=== PATIENT | male | born 1945 | race Caucasian/White ===

== ENCOUNTER 2025-02-05 13:37 | Inpatient (IN) | payer OTHER, SELFPAY ==
[2025-02-05 08:47] VITALS: BP 99/56
[2025-02-05 08:51] VITALS: BP 99/56
[2025-02-05 09:00] VITALS: BP 98/55
--- NOTE | 2025-02-05 09:26 | EDRN ---
SNF reports that they changed the MARKHAM YD as the pt ' cut the balloon' so it needed to be replaced
--- NOTE | 2025-02-05 09:29 | ED.GENMED ---
History of Present Illness
General
Chief Complaint: Fever
Time Seen by Provider: 02/05/25 08:43
History of Present Illness
History of Present Illness:
79-year-old male with history of chronic kidney disease, aortic valve insufficiency, hypertension, and paroxysmal SVT presents to the emergency department from [facility] for evaluation of fever. Patient was reportedly treated
for an ESBL E. coli UTI from 01 26 through 02 01 with IV ampicillin/sulbactam. He was admitted to [facility] at the end of November after a fall resulting in a subdural hematoma and apparently required a Martinez catheter replaced
during that admission due to urine retention. Nursing facility notes that the patient had cut the urine balloon yesterday and required a Martinez catheter exchange last evening. Patient offers no complaints on arrival but was sent in today due to a
fever. He had outpatient labs done yesterday showing an elevated white blood cell count. He is Malaysian-speaking and requires professional interpretation for evaluation
Review of Systems
Review of Systems
Allergies reviewed?: Yes
All Other Systems: ROS reviewed and negative except as documented in HPI and ROS
Phy Exam
Physical Exam
Physical Exam:
GEN: Well appearing, NAD, WDWN
HEENT: Oral mucosa moist, no scleral icterus
Cardiac: Regular rate
Lung: No respiratory distress, no tachypnea
MSK: No gross deformity or injuries
Skin: Good color, no pallor or jaundice, no rashes
Neuro: AO x3, moves all extremities freely
Psych: Calm, cooperative
Sepsis
Sepsis Screening
Sepsis Assessment: Sepsis
Sepsis Screen
Sepsis Screen: Sepsis
Date: 02/05/25
Time: 15:50
Course
Orders/Labs/Results
Orders:
Orders
02/05/25 09:15
Complete Blood Count/With Diff Urgent
Comprehensive Metabolic Panel Urgent
Ferritin Urgent
Folate Urgent
Iron Urgent
Lactic Acid Q4H
Comment: CANCEL 2nd LACTIC ACID IF 1st LACTIC ACID IS LESS THAN 2
Total Iron Binding Urgent
Vitamin B12 Urgent
Comment: IRON,FERRITIN,TIBC,FOLATE,B12 ADDED ON BY FLOOR 12:40PM 02-05-25
Blood Culture Q30M
BERNICE Source: Blood/Venous
Specimen Description:
02/05/25 09:16
Urinalysis Reflex To Culture Urgent
Date Specimen was Collected: 02/05/25
Time Specimen was Collected: 09:14
Urine Microscopic Reflex Cult Urgent
Urine Culture Urgent
BERNICE Source: U
Specimen Description:
Obtained by: Random
Date Specimen was Collected: 02/05/25
Time Specimen was Collected: 09:14
02/05/25 09:27
0.9% Sodium Chloride 1000 ml [Nss] 1,000 ml IV BOLUS
Acetaminophen 1000MG/100Ml [Ofirmev] 1,000 mg in 100 ml IV ONCE
Acetaminophen IV Indication:: ED Narcotic Naive Pt-ONCE
02/05/25 09:51
Blood Culture Q30M
BERNICE Source: Blood/Venous
Specimen Description:
02/05/25 10:23
CT Abd/pel Without Iv Or Oral Urgent
Comment:
Reason For Exam: fever, UTI, flank pain
02/05/25 10:28
Piperacillin/Tazo 3.375 Gram [Zosyn] 3.375 gram in 50 ml IV NOW
02/05/25 12:27
Admit/Transfer Patient As Directed
Co-Sign Provider:
Level of Care: Inpatient admission
Assign to:: Medical/Surgical
Physician / Group: Seth
Diagnosis: Sepsis, UTI
Reason for Hospitalization: IV abx
Expected length of stay greater than two midnights?: Yes
ELOS- Estimated Length of Stay in days: 3
I certify the patient meets the requirements for IP care: Yes
02/05/25 12:28
PRN Pain Medication Management As Directed
May give lesser potent ordered pain med per pt: Yes
preference::
Protocol:: Medication orders for pain may be administered in a
manner that supports deferring to patient preference
when the pt is:
- Requesting an ordered lesser potent pain medication.
Least to most potent pain medications are defined
as: acetaminophen < NSAID < tramadol < opioids
(morphine, oxycodone, hydromorphone).
- Requesting a lesser dose of the same medication IF
ORDERED.
- Requesting a less intrusive route of administration
if both routes are prescribed by the provider (PO <
IV).
02/05/25 12:29
Code Status As Directed
Resuscitation Status: Full Code
02/05/25 12:42
Add On- LAB Routine
Tests Added?: iron, feritin, tibc, folate, vit b12
Abnormal Lab Results
02/05/25 02/05/25
09:15 09:16
WBC 12.1 H 10^3/uL
(4.8-10.8)
RBC 3.50 L 10^6/uL
(4.70-6.10)
Hgb 8.7 L g/dL
(13.0-18.0)
Hct 28.2 L %
(39.0-52.0)
MCH 24.9 L pg
(27.0-31.0)
MCHC 30.9 L g/dL
(33.0-37.0)
RDW 19.9 H %
(11.5-14.5)
Plt Count 117 L 10^3/uL
(130-400)
Abs Immat Gran (auto) 0.1 H 10^3/uL
(0-0.05)
Absolute Neuts (auto) 11.2 H 10^3/uL
(1.4-6.5)
Absolute Lymphs (auto) 0.4 L 10^3/uL
(1.2-3.4)
Immature Gran % 0.9 H %
(0-0.5)
Neutrophils % 92.0 H %
(42.2-75.2)
Lymphocytes % 3.5 L %
(20.5-51.1)
BUN 46 H mg/dl
(9-20)
Creatinine 2.6 H mg/dL
(0.7-1.3)
Glucose 121 H mg/dl
(70-99)
Lactic Acid 0.6 L mmol/L
(0.7-2.0)
Iron 21 L ug/dl
(49-181)
% Saturation 7 L %
(20-50)
Total Bilirubin 1.4 H mg/dl
(0.2-1.3)
AST 12 L U/L
(17-59)
Total Protein 6.1 L g/dl
(6.3-8.2)
Albumin 3.4 L g/dl
(3.5-5.0)
Vitamin B12 970 H pg/ml
(239-931)
Ur Occult Blood Reflex 4+ A
(Negative)
Leukocyte Esterase Rfl 3+ A
(Negative)
Urine RBC 40-50 A /HPF
(0-2)
Urine WBC (Reflex) 70-80 A /HPF
(0-5)
Urine Bacteria (Reflex) Moderate A
(Negative)
Urine Albumin (Reflex) 3+ A
(Neg - Trace)
02/05/25 09:15
02/05/25 09:15
Vital Signs
Initial and Last Documented VS:
Initial Vital Signs
BP
99/56
02/05/25 08:47
Last Documented Vital Signs
Temp Pulse Resp BP Pulse Ox
101.6 F H 86 17 101/54 96
02/05/25 08:51 02/05/25 12:30 02/05/25 10:00 02/05/25 10:00 02/05/25 12:30
MDM/Problems Addressed
MDM/Problems Addressed:
Patient with evidence of sepsis given fever and leukocytosis most likely due to recurrent catheter associated UTI. Prior history of ESBL, will cover broadly with Angelan admit to the hospitalist service. His hydronephrosis on imaging has been known
based on reports from [facility]
*Critical Care Note
Total Time (30-74mins, 75-104mins- exclusive of procedures): Not Applicable
ED Attending Note
-
Portions of this chart may have been created with voice recognition software.� Occasional wrong word or��sound alike� substitutions may have occurred due to the inherent limitations of voice recognition software.
Discharge Plan
Departure
Patient Disposition: Admit
Date of Disposition: 02/05/25
Time of Disposition: 11:29
Admit to: Med/Surg
Presentation/result/management discussed w/ accepting MD/DO: Hospitalist
Discharge Problem:
Catheter-associated urinary tract infection
Interventions
Interventions:
*Risk Screen - Suicide Last Done: 02/05/25 09:10
*General Assessment Last Done: 02/05/25 09:10
*Neglect/Abuse Screening Last Done: 02/05/25 09:12
*ED- Fall Risk Assessment Last Done: 02/05/25 08:54
*ED COVID-19 Vaccine History Last Done: 02/05/25 08:54
ED- Neurological Assessment Last Done: 02/05/25 09:10
ED-Skin Assessment Last Done: 02/05/25 09:26
[2025-02-05 09:30] LABS: Urine Albumin 3+ (Neg - Trace); Urine Bilirubin Negative (Negative); Urine Character Cloudy (Clear); Urine Glucose Negative (Negative); Urine Ketone Negative (Negative); Urine Leukocyte 3+ (Negative); Urine Nitrite Negative (Negative); Urine Occult Blood 4+ (Negative); Urine Urobilinogen Negative (Neg - 1+)
[2025-02-05] MEDS: OFIRMEV 100 IV (09:32)
[2025-02-05] MEDS: NSS 1000 IV ×2 (09:33→18:01)
[2025-02-05 09:35] LABS: Urine Color Yellow
[2025-02-05 09:36] LABS: % Basophils 0.1 % (0-2); % Immature Granulocytes 0.9 % (0-0.5); % Lymphocytes 3.5 % (20.5-51.1); % Monocytes 3.5 % (1.7-9.3); Absolute Immature Granulocytes 0.1 10^3/uL (0-0.05); Absolute Lymphocytes 0.4 10^3/uL (1.2-3.4); Absolute Monocytes 0.4 10^3/uL (0.1-0.6); Absolute Neutrophils 11.2 10^3/uL (1.4-6.5); Hematocrit 28.2 % (39.0-52.0); Hemoglobin 8.7 g/dL (13.0-18.0); Mean Corp Hgb Conc. 30.9 g/dL (33.0-37.0); Mean Corpuscular Hgb 24.9 pg (27.0-31.0); Mean Corpuscular Volume 80.6 fL (80.0-94.0); Nucleated Red Blood Cells % 0 % (-); Platelet Count 117 10^3/uL (130-400); Red Cell Dist. Width 19.9 % (11.5-14.5); White Blood Cell Count 12.1 10^3/uL (4.8-10.8)
[2025-02-05 09:42] LABS: Urine Bacteria Moderate (Negative); Urine Red Blood Cell 40-50 /HPF (0-2); Urine Squamous Cell 0-2 /LPF (Few); Urine White Cell 70-80 /HPF (0-5)
[2025-02-05 10:00] VITALS: BP 101/54
[2025-02-05 10:17] LABS: Alkaline Phosphatase 51 U/L (38-126); Blood Urea Nitrogen 46 mg/dl (9-20); Calcium 8.8 mg/dl (8.4-10.2); Carbon Dioxide 23 mmol/L (22-30); Chloride 106 mmol/L (98-107); Glucose 121 mg/dl (70-99); Potassium 4.6 mmol/L (3.5-5.1); Sodium 137 mmol/L (135-145); eGFR 24.63
[2025-02-05 10:18] LABS: ALT (SGPT) < 10 U/L (0-50); AST (SGOT) 12 U/L (17-59); Albumin 3.4 g/dl (3.5-5.0); Lactic Acid 0.6 mmol/L (0.7-2.0); Total Bilirubin 1.4 mg/dl (0.2-1.3); Total Protein 6.1 g/dl (6.3-8.2)
[2025-02-05] MEDS: ZOSYN 50 IV (10:33)
--- NOTE | 2025-02-05 12:49 | HPS.HSE ---
Family Physician
-
Family Physician: Kirill Borrero MD
Chief Complaint
-
Fever
History of Present Illness
Patient is a 79 y/o male past medical history of recent subarachnoid hemorrhage, polycythemia vera and bladder cancer who presents with fevers. Patient was admitted to [facility] from December 27 to January 07 with subarachnoid hemorrhage following a
fall. Hospitalization was complicated by acute kidney injury with bilateral hydronephrosis felt to be secondary to obstruction for which a Martinez catheter was placed. Patient was discharge from [facility] to [facility] for continue half-way
care. While at the nursing facility patient was found to have an E. coli urinary tract infection for which he received Unasyn from January 25 to February 01. Patient was sent to [facility] emergency department today due to fevers. Patient
speaks Solomon Islander and despite using slat pickler history is limited.
Medical History
Past Medical History
Past Medical History: Reports Other
Additional Past Medical History:
Subarachnoid Hemorrhage
Paroxysmal Supraventricular Tachycardia
Essential Hypertension
Bladder Cancer
Polycythemia Vera
Peripheral Neuropathy
Past Surgical History: Reports Other
Additional Past Surgical History:
Appendectomy
Cholecystectomy
Hernia Repair
TURBT
Social History
Tobacco: Non-smoker
Living: [facility]
Family History
Family History: Unable to Obtain
Allergies / Home Medications
Allergies reflects when Allergies were last updated in [employer].
Home Medications with original date entered in [employer]
Allergy/Medication List:
Allergies
Allergy/AdvReac Type Severity Reaction Status Date / Time
No Known Allergies Allergy Unverified 02/05/25 08:51
Home Medications
acetaminophen 325 mg tablet (Tylenol) 650 mg PO Q6HPRN PRN mild pain, fever 02/05/25
aspirin 81 mg chewable tablet 81 mg PO DAILY 02/05/25
bisacodyl 10 mg rectal suppository (Dulcolax (bisacodyl)) 10 mg ND DAILYPRN PRN if no bm aft mom 02/05/25
gabapentin 100 mg capsule 100 mg PO BID 02/05/25
magnesium hydroxide 400 mg/5 mL oral suspension (Milk of Magnesia) 2,400 mg PO HSPRN PRN if no bm by 3rd day 02/05/25
mirabegron 50 mg tablet,extended release 24 hr 50 mg PO DAILY 02/05/25
pantoprazole 40 mg tablet,delayed release 40 mg PO DAILY 02/05/25
polyethylene glycol 3350 17 gram oral powder packet 17 g PO DAILY 02/05/25
tamsulosin 0.4 mg capsule 0.4 mg PO HS 02/05/25
tolterodine 4 mg capsule,extended release 24 hr 4 mg PO DAILY 02/05/25
Review of Systems
-
Unable to obtain full review of systems at this time due to: Language Barrier
Physical Exam
Vital Signs
Vital Signs
Temp Pulse Resp BP Pulse Ox
101.6 F H 86 17 101/54 96
02/05/25 08:51 02/05/25 12:30 02/05/25 10:00 02/05/25 10:00 02/05/25 12:30
Physical Exam
General: Well Developed, Well Nourished and No Apparent Distress
HEENT: NormoCephalic, Anicteric, Moist mucous membranes and Atraumatic
Respiratory: Clear and Non Labored Respirations; No Wheezes, Rales or Rhonchi
Cardiac: S1/S2 and Regular Rhythm; No Murmur
GI: Soft, Non Tender, Non Distended and Normal Bowel Sounds
Rectal: Deferred by Provider
Genito-urinary: Martinez
Musculoskeletal: No Clubbing, No Cyanosis and No Edema
Skin: Warm and Dry; No Rash
Neuro: Awake, Alert, Oriented and Nonfocal/grossly intact
Psych: Calm
Laboratory Results
-
02/05/25 09:15
02/05/25 09:15
Laboratory Results
Lactic Acid Cancelled 02/05/25 13:15
Total Bilirubin 1.4 mg/dl (0.2-1.3) H 02/05/25 09:15
AST 12 U/L (17-59) L 02/05/25 09:15
ALT < 10 U/L (0-50) 02/05/25 09:15
Alkaline Phosphatase 51 U/L (38-126) 02/05/25 09:15
Abd/Pelvis CT scan
1. There is severe hydronephrosis and hydroureter bilaterally, left greater than right. Etiology is uncertain. There is no calculus or cause of obstruction.
2. There is a Martinez catheter in the bladder which is decompressed. A bladder mass cannot be excluded anteriorly.
3. The spleen is markedly enlarged.
Data Reviewed
-
CT Scan: Report Reviewed by me
Lab Data: Labs Reviewed by me
Old Records: Reviewed
Impression/Plan
-
Sepsis secondary to Catheter-Associated Urinary Tract Infection
-Continue ceftriaxone
-Exchange catheter
-Await urine and blood cultures
Elevated Creatinine
-Records from [facility] indicate acute kidney injury felt to be post-obstructive
-Per [facility] records baseline Cr ~1.9
-Creatinine on January 03 2.81
-Despite Martinez catheter placement CT scan today shows severe bilateral hydronephrosis and hydro-ureter
-Consult Urology
Normocytic Anemia
-Check iron studies, vitamin b12 and folic acid
Polycythemia Vera
-Hold aspirin for now pending Urology consult
Recent Subarachnoid Hemorrhage
-Consult PT/OT
Splenomegaly, likely related to polycythemia
Hx Bladder Cancer s/p TURBT and induction gemcitabine/docetaxel (2022)
-Patient follows with Dr. Nation and Dr. Redmond at [place]
DVT proph: SCDs
Code Status: Full Code
--- NOTE | 2025-02-05 13:08 | W.PN.UPDATE ---
Update Note
Progress Note Update
This is an addendum to the H&P written by Marina Berger on 02/05/2025.� Patient seen and examined independently with PA.
79-year-old male Turkmen-speaking past medical history of recent subarachnoid hemorrhage, polycythemia vera, paroxysmal SVT, bladder cancer listed in his med rec presenting with fever.
Patient was recently admitted in end of November to early December at [place] for fall resulting in subarachnoid hemorrhage.� This was treated conservatively by holding aspirin for a week.� During that admission he was found to have SHAR, bilateral hydro
and urinary retention.��
He was treated for UTI from January 25 to February 01 for ESBL E. coli resistant to ciprofloxacin and Bactrim treated with Unasyn.
Today presents with fever.
His blood pressure is in the 90s, had fever of 101.6.� Leukocytosis on labs.
Hemoglobin 8.7, unclear prior.� Mild thrombocytopenia 117.� Creatinine of 2.6, previously 2.8 in January 07.� Urinalysis indicative of infection.
CT abdomen pelvis shows severe hydronephrosis and hydroureter bilaterally, left greater than right.� No calculus or cause obstruction.� Martinez catheter in the bladder which is decompressed, bladder mass cannot be excluded anteriorly.� Spleen is
markedly enlarged.
Patient with sepsis secondary to likely new UTI secondary to Martinez catheter.� However unclear why patient would continued to have severe bilateral hydronephrosis with severe SHAR despite Martinez catheter.� Urine culture, blood cultures, IV fluids.�
Ceftriaxone.� Urology consulted.
Splenomegaly likely due to known polycythemia vera.� Thrombocytopenia likely secondary to sepsis as well as this.
Anemia workup with iron studies, B12 and folate.
[2025-02-05 13:13] LABS: Iron 21 ug/dl (49-181)
[2025-02-05 13:22] LABS: Percent Saturation 7 % (20-50); Total Iron Binding Capacity 277 ug/dl (261-462)
[2025-02-05 13:51] LABS: Ferritin 45.5 ng/ml (17.9-464.0)
[2025-02-05 15:09] LABS: Folate 9.2 ng/ml (2.76-20); Vitamin B12 970 pg/ml (239-931)
--- NOTE | 2025-02-05 17:42 | EDRN ---
Assisting w/ care of pt., urology provider at bedside, requesting RN assistance. This RN to bedside, assisted urologist w/ placement of 20 F Coude catheter, urology able to irrigate stanford w/ 500 cc NSS, small blood clots evacuated, stanford now
draining, strap placed to rt. thigh for securement per urology verbal request.
--- NOTE | 2025-02-05 18:04 | CON.MD ---
Consultation - Medical
-
see dictated note
czech speaking male- ? AMS- can not provide any real hx
also new to system
fortunately- detailed gu consult note from recent admit to [facility] available
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
also know hx of high pressure neurogenic bladder with sig reflux and hydro and worsening renal function- was again evaluated at [facility] by dr duke- diversion recommended- pt declined
during admit to [facility] for subdural hematoma- a stanford was placed although pt h did not have sig retention- but did have sig hydro on ct that did not seem to improve with stanford
also recently treated for ESBL with course of iv antibx
baseline cr appears to be around 2-2.5 (up to 3 at time of [facility] admit)
now admitted with fever/ams
cr 2.6
ct shows thick walled bladder- no obvious mass- apparently pt self removed cath yesterday- replaced but appears to be blown up in prostate fossa- but has been draining
plan
stanford replaced- irrigates but small capacity bladder- some hematuria but no clots
ua +/wbc elevated/fever- on antibx
ct shows bilateral hydro- chronic-
treat medically- eventually pt needs f/u with established urologists to discuss options after discharge
[2025-02-05] MEDS: ROCEPHIN 1000 MG IV ×2 (22:11→22:12)
[2025-02-05] MEDS: FLOMAX 0.4 MG PO (22:12)
[2025-02-05] MEDS: NEURONTIN 100 MG PO (22:12)
[2025-02-05] MEDS: STERILE WATER FOR INJECTION 10 ML IV (22:12)
--- NOTE | 2025-02-05 22:20 | PTCARENOTE ---
Pt arrived onto floor accompanied by son. Pt AAOx3 and able to walk into room with minimal assistance. Pt with no complaints of pain or SOB at this time. Pt oriented to room and call beach; will continue to monitor
[2025-02-05 22:59] VITALS: BP 120/63
[2025-02-05 23:00] VITALS: BMI 21.1
[2025-02-06 06:00] VITALS: BMI 21.1
[2025-02-06 07:35] VITALS: BP 109/63
--- NOTE | 2025-02-06 08:15 | W.PN.URO.CBU ---
Today's Communication / Plan
-
continue stanford and antibx
Assessment / Plan
-
admit for fever/ams- suspected UTI- recent hx of esbl
hx of bladder cancer- current status unkown
hx of high pressure neurogenic bladder with bilateral reflux/hydro and elevated cr
stanford cath appears well positioned
no acute urologic intervention required at this time- CT findings are chronic
pt should pursue prompt follow up with established [facility]rology after discharge for strong consideration of urinary diversion
Diagnosis
-
Date of Service: February 06, 2025
-
Patient Diagnosis:
hx of bladder cancer
high pressure neurogenic bladder with reflux- bilateral hydro and renal compromise
UTI
Subjective
-
pt looks a little better this am
more alert
stanford in place- urine clear
Objective
-
Vital Signs
Temp Pulse Resp BP Pulse Ox
98.5 F 115 20 120/63 98
02/05/25 22:59 02/05/25 22:59 02/05/25 22:59 02/05/25 22:59 02/05/25 22:59
Intake and Output
02/05/25 02/06/25 02/07/25
06:59 06:59 06:59
Intake Total 1180 / 1180
Output Total 400 / 400
Balance 780 / 780
Intake:
Oral fluids 480 / 480
IV fluids (Total) 700 / 700
Output:
Urine, Stanford 400 / 400
Review of Systems
-
Unable to obtain full review of systems at this time due to: Language Barrier
Physical Exam
-
General - no acute distress
Abdomen - soft, non-tender
Genitalia - normal- stanford in place
[2025-02-06 08:30] LABS: Hematocrit 24.9 % (39.0-52.0); Hemoglobin 7.7 g/dL (13.0-18.0); Mean Corp Hgb Conc. 30.9 g/dL (33.0-37.0); Mean Corpuscular Hgb 25.2 pg (27.0-31.0); Mean Corpuscular Volume 81.4 fL (80.0-94.0); Platelet Count 104 10^3/uL (130-400); Red Blood Cell Count 3.06 10^6/uL (4.70-6.10); Red Cell Dist. Width 19.5 % (11.5-14.5); White Blood Cell Count 9.8 10^3/uL (4.8-10.8)
[2025-02-06 08:45] VITALS: BP 109/63; PULSE 90; O2SAT 99
[2025-02-06 08:47] LABS: Blood Urea Nitrogen 47 mg/dl (9-20); Calcium 7.8 mg/dl (8.4-10.2); Carbon Dioxide 22 mmol/L (22-30); Chloride 109 mmol/L (98-107); Estimated Creatinine Clearance 20 ml/min; Glucose 131 mg/dl (70-99); Potassium 4.2 mmol/L (3.5-5.1); Sodium 139 mmol/L (135-145); eGFR 24.63
[2025-02-06] MEDS: NSS 1000 IV ×2 (09:15→23:49)
[2025-02-06] MEDS: MIRALAX 17 GRAMS PO (09:16)
[2025-02-06] MEDS: NEURONTIN 100 MG PO ×2 (09:16→21:12)
[2025-02-06] MEDS: MYRBETRIQ EXTENDED RELEASE 50 MG PO (09:16)
[2025-02-06] MEDS: DETROL LA 4 MG PO (09:16)
[2025-02-06 10:56] LABS: Iron < 20 ug/dl (49-181)
[2025-02-06 10:57] VITALS: BP 104/58; PULSE 83; O2SAT 99
[2025-02-06 11:04] LABS: Total Iron Binding Capacity 229 ug/dl (261-462)
[2025-02-06 12:57] LABS: Vitamin B12 949 pg/ml (239-931)
--- NOTE | 2025-02-06 14:16 | W.PN.HOSP.TC ---
Today's Communication/Plan
-
Maintain Martinez catheter
Continue antibiotics pending final urine cultures and sensitivities
IV iron
Monitor hemoglobin
CT head to follow-up with prior intracranial hemorrhage
Assessment / Plan
Assessment / Plan
Impression:
Presented with falls from home
Altered mental status/toxic metabolic encephalopathy secondary to infection
Catheter associated urinary tract infection
Sepsis present on admission
Acute on chronic anemia
Other conditions:
Transitional cell carcinoma, noninvasive
-Status post TURBT
� Status post intravesical chemo monitored by Dr. Redmond, Dr. Nation
Chronic urinary retention with chronic bilateral hydronephrosis secondary to neurogenic bladder
CKD stage III with baseline creatinine 2 point
Polycythemia vera
Splenomegaly
Recent fall causing subarachnoid hemorrhage and admission to [facility]
Ambulatory dysfunction requiring walker
Plan:
Toxic metabolic encephalopathy, fall at home suspected secondary to UTI and fever.
Mental status currently back to baseline baseline neurologic exam with no focal findings.
Prior history of fall complicated with intracranial hemorrhage, repeat CT scan of the head and monitor closely
Catheter associated UTI.
Neurogenic bladder with indwelling Martinez catheter.
CT scan findings consistent with looks like chronic bilateral hydronephrosis.
Martinez catheter placed on admission
Recent UTI with ESBL E. coli reported at [facility] and patient completed course of antibiotics. Details unclear.
Currently on ceftriaxone with preliminary urine culture with E. coli pending sensitivity. Blood cultures negative to date
Currently afebrile and hemodynamically stable
Empirically on ceftriaxone pending final sensitivities
Maintain Martinez catheter
Transitional cell carcinoma status post TURBT and intravesical chemotherapy
Outpatient follow-up with urology.
Chronic normocytic anemia with now trending down hemoglobin suspect secondary to microhematuria.
Iron deficiency.
Start IV iron.
Monitor hemoglobin
Will require transfusion if trending down and below 7.
Polycythemia vera.
Noted with anemia and mild thrombocytopenia
Splenomegaly likely related to myeloproliferative disorder
Ambulatory dysfunction
Multifactorial
Physical/Occupational Therapy evaluation
Discharge planning
Full code
Anticipated Discharge: 24 - 48 hours
Subjective/Interval History
-
Date of Service: February 06, 2025
Objective Data
-
Labs:
Laboratory Results
02/06/25
08:02
WBC 9.8
Hgb 7.7 L
Hct 24.9 L
Plt Count 104 L
Sodium 139
Potassium 4.2
Chloride 109 H
Carbon Dioxide 22
BUN 47 H
Creatinine 2.6 H
Glucose 131 H
Calcium 7.8 L
Vital Signs:
Vital Signs
Temp Pulse Resp BP Pulse Ox
97.7 F 90 18 109/63 99
02/06/25 07:35 02/06/25 07:35 02/06/25 07:35 02/06/25 07:35 02/06/25 09:10
I&O
02/05/25 02/06/25 02/07/25
06:59 06:59 06:59
Intake Total 1180 / 1180
Output Total 400 / 400
Balance 780 / 780
Physical Exam
-
General: Well Developed and No Apparent Distress
HEENT: Normocephalic, Atraumatic and Moist Mucous Membranes
Respiratory: Clear to Auscultation
Cardiac: Regular Rhythm and S1/S2; Negative Murmur, Rub or Gallop
GI: Soft, Nontender, Nondistended and Normal Bowel Sounds; Negative Organomegaly
Rectal: Deferred by Provider
Genito-urinary: Martinez
Musculoskeletal: No Clubbing, No Cyanosis and No Edema
Skin: Negative Rash
Neuro: Nonfocal/Grossly Intact
[2025-02-06] MEDS: PROTONIX 40 MG PO (15:06)
[2025-02-06] MEDS: FERRLECIT 110 MG IV (15:06)
[2025-02-06 15:34] VITALS: BP 117/66
--- NOTE | 2025-02-06 16:43 | CM ---
dairy manager reviewed patient's chart and patient was admitted from [facility], patient requires assist with adl's and uses a walker with ambulation. Call placed to admissions at [facility] to confirm bedhold on patient.
PCP: Kirill Borrero
Plan; Patient to return to [facility] when stable.
[2025-02-06] MEDS: ROCEPHIN 1000 MG IV (21:13)
[2025-02-06] MEDS: STERILE WATER FOR INJECTION 10 ML IV (21:13)
[2025-02-06] MEDS: FLOMAX 0.4 MG PO (21:13)
[2025-02-06 23:13] VITALS: BP 106/62
[2025-02-07 07:37] VITALS: BP 109/68
[2025-02-07 08:02] LABS: % Basophils 0.1 % (0-2); % Eosinophils 1.1 % (0-6); % Immature Granulocytes 0.5 % (0-0.5); % Lymphocytes 5.8 % (20.5-51.1); % Monocytes 3.8 % (1.7-9.3); % Neutrophils 88.7 % (42.2-75.2); Absolute Eosinophils 0.1 10^3/uL (0-0.7); Absolute Lymphocytes 0.5 10^3/uL (1.2-3.4); Absolute Monocytes 0.3 10^3/uL (0.1-0.6); Absolute Neutrophils 7.1 10^3/uL (1.4-6.5); Hematocrit 24.9 % (39.0-52.0); Hemoglobin 7.5 g/dL (13.0-18.0); Mean Corp Hgb Conc. 30.1 g/dL (33.0-37.0); Mean Corpuscular Hgb 24.6 pg (27.0-31.0); Mean Corpuscular Volume 81.6 fL (80.0-94.0); Nucleated Red Blood Cells % 0 % (-); Platelet Count 103 10^3/uL (130-400); Red Blood Cell Count 3.05 10^6/uL (4.70-6.10); Red Cell Dist. Width 19.1 % (11.5-14.5)
[2025-02-07] MEDS: MIRALAX 17 GRAMS PO (08:29)
[2025-02-07] MEDS: MYRBETRIQ EXTENDED RELEASE 50 MG PO (08:29)
[2025-02-07] MEDS: LOW STRENGTH ASPIRIN 81 MG PO (08:30)
[2025-02-07] MEDS: NEURONTIN 100 MG PO ×2 (08:30→20:34)
[2025-02-07] MEDS: PROTONIX 40 MG PO (08:30)
[2025-02-07] MEDS: DETROL LA 4 MG PO (08:30)
[2025-02-07 08:33] LABS: Blood Urea Nitrogen 39 mg/dl (9-20); Calcium 7.9 mg/dl (8.4-10.2); Carbon Dioxide 21 mmol/L (22-30); Chloride 111 mmol/L (98-107); Estimated Creatinine Clearance 25 ml/min; Glucose 99 mg/dl (70-99); Potassium 4.3 mmol/L (3.5-5.1); Sodium 140 mmol/L (135-145); eGFR 31.82
--- NOTE | 2025-02-07 10:09 | W.PN.URO.CBU ---
Today's Communication / Plan
-
continue current care
Assessment / Plan
-
admit for fever/ams- suspected UTI- recent hx of esbl
hx of bladder cancer- current status unkown
hx of high pressure neurogenic bladder with bilateral reflux/hydro and elevated cr
stanford cath appears well positioned
no acute urologic intervention required at this time- CT findings are chronic
pt should pursue prompt follow up with established [facility]rology after discharge for strong consideration of urinary diversion
Diagnosis
-
Date of Service: February 07, 2025
-
Patient Diagnosis:
hx of bladder cancer
high pressure neurogenic bladder with reflux- bilateral hydro and renal compromise
UTI- ECOLI
Subjective
-
pt more awake and alert
urine clear- stanford appears in good position
cr down to 2.1
ucx + for ecoli- blood cx's negative to date
Objective
-
Vital Signs
Temp Pulse Resp BP Pulse Ox
98.5 F 91 17 109/68 97
02/07/25 07:37 02/07/25 07:37 02/07/25 07:37 02/07/25 07:37 02/07/25 07:37
Intake and Output
02/06/25 02/07/25 02/08/25
06:59 06:59 06:59
Intake Total 1180 / 1180 2700 / 2700
Output Total 400 / 400 1800 / 1800
Balance 780 / 780 900 / 900
Intake:
Oral fluids 480 / 480 840 / 840
IV fluids (Total) 700 / 700 1750 / 1750
IV piggybacks 110 / 110
Output:
Urine, Stanford 400 / 400 1800 / 1800
Laboratory Results
02/07/25 07:28
02/07/25 07:28
Review of Systems
-
Unable to obtain full review of systems at this time due to: Language Barrier
Physical Exam
-
General - no acute distress
Abdomen - soft, non-tender
Genitalia - stanford in place
[2025-02-07] MEDS: NSS IV (10:29)
--- NOTE | 2025-02-07 12:42 | CM ---
ict managers reviewed patent's chart and met with patient and spoke with patient's son Yoshi by phone, and per patient's son patient has been at [facility] for about 1 month was walking with walker but is unsure if patient was ambulating
lately. Message left for admissions at [facility].
Plan; Patient to return to [facility] when stable, needs Auth per admissions at [facility], to return to skilled at [facility].
[facility]
Report [phone]

Dr. Kirill Borrero
[2025-02-07] MEDS: FERRLECIT 110 MG IV (13:17)
[2025-02-07 15:26] VITALS: BP 118/65
--- NOTE | 2025-02-07 16:19 | W.PN.HOSP.TC ---
Today's Communication/Plan
-
Maintain Martinez catheter
Urine culture with E. coli pending sensitivities (reported prior history of ESBL). Currently on ceftriaxone afebrile with improved leukocytosis.
Creatinine trending down at 2.1. Stop IV fluids
Physical therapy assessed
Attempted to call patient's son to update with no response.
Assessment / Plan
Assessment / Plan
Impression:
Presented with falls from home
Altered mental status/toxic metabolic encephalopathy secondary to infection
Catheter associated urinary tract infection
Sepsis present on admission
Acute on chronic anemia
Other conditions:
Transitional cell carcinoma, noninvasive
-Status post TURBT
� Status post intravesical chemo monitored by Dr. Redmond, Dr. Nation
Chronic urinary retention with chronic bilateral hydronephrosis secondary to neurogenic bladder
CKD stage III with baseline creatinine 2 point
Polycythemia vera
Splenomegaly
Recent fall causing subarachnoid hemorrhage and admission to [facility]/[place]
Ambulatory dysfunction requiring walker
Plan:
Toxic metabolic encephalopathy, fall at home suspected secondary to UTI and fever, SHAR
Mental status currently back to baseline baseline neurologic exam with no focal findings.
Prior history of fall complicated with intracranial hemorrhage
Repeat CT scan with no acute abnormality
Catheter associated UTI.
Neurogenic bladder with indwelling Martinez catheter.
CT scan findings consistent with looks like chronic bilateral hydronephrosis.
Martinez catheter placed on admission
Recent UTI with ESBL E. coli reported at [facility] and patient completed course of antibiotics. Details unclear.
Currently on ceftriaxone with preliminary urine culture with E. coli pending sensitivity. Blood cultures negative to date
Currently afebrile and hemodynamically stable
Empirically on ceftriaxone pending final sensitivities
Maintain Martinez catheter
Acute kidney injury likely secondary to retention and dehydration
Renal function improved with Martinez decompression and hydration. Creatinine 2.6�2.1.
Transitional cell carcinoma status post TURBT and intravesical chemotherapy
Outpatient follow-up with urology.
Chronic normocytic anemia with now trending down hemoglobin suspect secondary to microhematuria.
Iron deficiency.
Start IV iron.
Monitor hemoglobin
Will require transfusion if trending down and below 7.
Polycythemia vera.
Noted with anemia and mild thrombocytopenia
Splenomegaly likely related to myeloproliferative disorder
Ambulatory dysfunction
Multifactorial
Physical/Occupational Therapy evaluation
Discharge planning
Full code
Anticipated Discharge: 24 - 48 hours
Subjective/Interval History
-
Date of Service: February 07, 2025
Objective Data
-
Labs:
Laboratory Results
02/07/25
07:28
WBC 8.0
Hgb 7.5 L
Hct 24.9 L
Plt Count 103 L
Sodium 140
Potassium 4.3
Chloride 111 H
Carbon Dioxide 21 L
BUN 39 H
Creatinine 2.1 H
Glucose 99
Calcium 7.9 L
Vital Signs:
Vital Signs
Temp Pulse Resp BP Pulse Ox
98.3 F 93 20 118/65 99
02/07/25 15:26 02/07/25 15:26 02/07/25 15:26 02/07/25 15:26 02/07/25 15:26
I&O
02/06/25 02/07/25 02/08/25
06:59 06:59 06:59
Intake Total 1180 / 1180 2700 / 2700
Output Total 400 / 400 1800 / 1800
Balance 780 / 780 900 / 900
Physical Exam
-
General: Well Developed and No Apparent Distress
HEENT: Normocephalic, Atraumatic and Moist Mucous Membranes
Respiratory: Clear to Auscultation
Cardiac: Regular Rhythm and S1/S2; Negative Murmur, Rub or Gallop
GI: Soft, Nontender, Nondistended and Normal Bowel Sounds; Negative Organomegaly
Rectal: Deferred by Provider
Genito-urinary: Martinez
Musculoskeletal: No Clubbing, No Cyanosis and No Edema
Skin: Negative Rash
Neuro: Nonfocal/Grossly Intact
[2025-02-07] MEDS: STERILE WATER FOR INJECTION 10 ML IV (20:34)
[2025-02-07] MEDS: FLOMAX 0.4 MG PO (20:34)
[2025-02-07] MEDS: ROCEPHIN 1000 MG IV (20:34)
[2025-02-07 23:39] VITALS: BP 92/69
[2025-02-08 07:00] VITALS: BP 128/80
[2025-02-08] MEDS: LOW STRENGTH ASPIRIN 81 MG PO (09:01)
[2025-02-08] MEDS: NEURONTIN 100 MG PO ×2 (09:01→21:16)
[2025-02-08] MEDS: DETROL LA 4 MG PO (09:01)
[2025-02-08] MEDS: PROTONIX 40 MG PO (09:01)
[2025-02-08] MEDS: MYRBETRIQ EXTENDED RELEASE 50 MG PO (09:01)
[2025-02-08] MEDS: MIRALAX 17 GRAMS PO (09:01)
[2025-02-08 11:44] LABS: Blood Urea Nitrogen 34 mg/dl (9-20); Calcium 8.2 mg/dl (8.4-10.2); Carbon Dioxide 18 mmol/L (22-30); Chloride 111 mmol/L (98-107); Estimated Creatinine Clearance 25 ml/min; Glucose 88 mg/dl (70-99); Potassium 4.4 mmol/L (3.5-5.1); Sodium 140 mmol/L (135-145); eGFR 31.82
[2025-02-08 11:44] LABS: % Basophils 0.1 % (0-2); % Eosinophils 1.1 % (0-6); % Immature Granulocytes 0.7 % (0-0.5); % Lymphocytes 5.5 % (20.5-51.1); % Monocytes 3.1 % (1.7-9.3); % Neutrophils 89.5 % (42.2-75.2); Absolute Eosinophils 0.1 10^3/uL (0-0.7); Absolute Immature Granulocytes 0.1 10^3/uL (0-0.05); Absolute Lymphocytes 0.4 10^3/uL (1.2-3.4); Absolute Monocytes 0.2 10^3/uL (0.1-0.6); Absolute Neutrophils 6.3 10^3/uL (1.4-6.5); Hematocrit 28.8 % (39.0-52.0); Hemoglobin 8.7 g/dL (13.0-18.0); Mean Corp Hgb Conc. 30.2 g/dL (33.0-37.0); Mean Corpuscular Hgb 24.6 pg (27.0-31.0); Mean Corpuscular Volume 81.6 fL (80.0-94.0); Nucleated Red Blood Cells % 0 % (-); Platelet Count 115 10^3/uL (130-400); Red Blood Cell Count 3.53 10^6/uL (4.70-6.10); Red Cell Dist. Width 18.9 % (11.5-14.5); White Blood Cell Count 7.1 10^3/uL (4.8-10.8)
--- NOTE | 2025-02-08 13:07 | W.PN.HOSP.TC ---
Today's Communication/Plan
-
Follow-up on the blood culture data
Switch antibiotics to meropenem and monitor for tolerance
PT and OT
Assessment / Plan
Assessment / Plan
Impression:
Presented with falls from home
Altered mental status/toxic metabolic encephalopathy secondary to infection
Catheter associated urinary tract infection
Sepsis present on admission
Acute on chronic anemia
Other conditions:
Transitional cell carcinoma, noninvasive
-Status post TURBT
� Status post intravesical chemo monitored by Dr. Redmond, Dr. Nation
Chronic urinary retention with chronic bilateral hydronephrosis secondary to neurogenic bladder
CKD stage III with baseline creatinine 2 point
Polycythemia vera
Splenomegaly
Recent fall causing subarachnoid hemorrhage and admission to [facility]/[place]
Ambulatory dysfunction requiring walker
Plan:
Toxic metabolic encephalopathy, fall at home suspected secondary to UTI and fever, SHAR
Mental status currently back to baseline baseline neurologic exam with no focal findings.
Prior history of fall complicated with intracranial hemorrhage
Repeat CT scan with no acute abnormality
Catheter associated UTI.
Neurogenic bladder with indwelling Martinez catheter.
CT scan findings consistent with looks like chronic bilateral hydronephrosis.
Martinez catheter placed on admission
Recent UTI with ESBL E. coli reported at [facility] and patient completed course of antibiotics. Details unclear.
Patient urinary culture with ESBL resistant to multiple antibiotics. Ceftriaxone discontinued. Meropenem started. Discussed with pharmacy recommend 1 g every 12 based on creatinine clearance
Await for blood culture to be completely finalized before placing an midline or PICC line
Currently afebrile and hemodynamically stable
Maintain Martinez catheter
Monitor for tolerance
Acute kidney injury likely secondary to retention and dehydration
Renal function improved with Martinez decompression and hydration. Creatinine 2.6�2.1.
Transitional cell carcinoma status post TURBT and intravesical chemotherapy
Outpatient follow-up with urology.
Chronic normocytic anemia with now trending down hemoglobin suspect secondary to microhematuria.
Iron deficiency.
Start IV iron.
Monitor hemoglobin
Will require transfusion if trending down and below 7.
Polycythemia vera.
Noted with anemia and mild thrombocytopenia
Splenomegaly likely related to myeloproliferative disorder
Ambulatory dysfunction
Multifactorial
Physical/Occupational Therapy evaluation
Discharge planning
Full code
Anticipated Discharge: > 48 hours
Subjective/Interval History
-
Date of Service: February 08, 2025
having good urinary output
Objective Data
-
Labs:
Laboratory Results
02/08/25 02/08/25
09:58 11:29
WBC Cancelled 7.1
Hgb Cancelled 8.7 L
Hct Cancelled 28.8 L
Plt Count Cancelled 115 L
Sodium 140
Potassium 4.4
Chloride 111 H
Carbon Dioxide 18 L
BUN 34 H
Creatinine 2.1 H
Glucose 88
Calcium 8.2 L
Vital Signs:
Vital Signs
Temp Pulse Resp BP Pulse Ox
98.3 F 87 16 128/80 99
02/08/25 07:00 02/08/25 07:00 02/08/25 07:00 02/08/25 07:00 02/08/25 07:00
I&O
02/07/25 02/08/25 02/09/25
06:59 06:59 06:59
Intake Total 2700 / 2700 0 / 0
Output Total 1800 / 1800 1150 / 1150
Balance 900 / 900 -1150 / -1150
Physical Exam
-
General: Well Developed and No Apparent Distress
HEENT: Normocephalic, Atraumatic and Moist Mucous Membranes
Respiratory: Clear to Auscultation
Cardiac: Regular Rhythm and S1/S2; Negative Murmur, Rub or Gallop
GI: Soft, Nontender, Nondistended and Normal Bowel Sounds; Negative Organomegaly
Rectal: Deferred by Provider
Genito-urinary: Martinez (light yellow color with some sediment noted )
Musculoskeletal: No Clubbing, No Cyanosis and No Edema
Skin: Negative Rash
Neuro: Awake
--- NOTE | 2025-02-08 13:23 | W.PN.URO.CBU ---
Today's Communication / Plan
-
keep stanford previous stanford malpositioned .... needs to go back to [place] for consideration of diversion
Assessment / Plan
-
admit for fever/ams- suspected UTI- recent hx of esbl
hx of bladder cancer- current status unkown
hx of high pressure neurogenic bladder with bilateral reflux/hydro and elevated cr
stanford cath appears well positioned
no acute urologic intervention required at this time- CT findings are chronic
pt should pursue prompt follow up with established [facility] urology after discharge for strong consideration of urinary diversion
Diagnosis
-
Date of Service: February 08, 2025
-
Patient Diagnosis:
Post Op Day:
Patient Diagnosis:
hx of bladder cancer
high pressure neurogenic bladder with reflux- bilateral hydro and renal compromise
UTI- ECOLI
Subjective
-
urine clear needs stanford thru discharge
Objective
-
Vital Signs
Temp Pulse Resp BP Pulse Ox
98.3 F 87 16 128/80 99
02/08/25 07:00 02/08/25 07:00 02/08/25 07:00 02/08/25 07:00 02/08/25 07:00
Intake and Output
02/07/25 02/08/25 02/09/25
06:59 06:59 06:59
Intake Total 2700 / 2700 0 / 0
Output Total 1800 / 1800 1150 / 1150
Balance 900 / 900 -1150 / -1150
Intake:
Oral fluids 840 / 840
IV fluids (Total) 1750 / 1750 0 / 0
IV piggybacks 110 / 110
Output:
Urine, Stanford 1800 / 1800 1150 / 1150
Laboratory Results
02/08/25 11:29
02/08/25 09:58
Review of Systems
-
: Difficulty Voiding
Physical Exam
-
General - well developed, well nourished, no acute distress
Chest - clear bilaterally
Abdomen - soft, non-tender, positive bowel sounds, no CVAT, no incisional pain or distention
Genitalia - normal
Rectal - normal
Skin - warm & dry with no rash
Neuro - AOx3, no motor deficits
Extremities - no clubbing, no cyanosis, no edema
Incision - clean, dry
Dressing - clean, dry, intact
Counseling
-
home when stable medically with stanford
Care Review
Data Reviewed
CT Scan: Image Pers Reviewed
[2025-02-08] MEDS: MERREM 1000 MG IV (13:52)
[2025-02-08] MEDS: FERRLECIT 110 MG IV (13:52)
[2025-02-08] MEDS: STERILE WATER FOR INJECTION 20 ML IV (13:52)
[2025-02-08 15:00] VITALS: BP 125/63
--- NOTE | 2025-02-08 18:39 | PTCARENOTE ---
Used rocket motor mechanic to communicate with patient today. Patient wants to know when he is getting discharged. Plan of care ongoing.
[2025-02-08] MEDS: FLOMAX 0.4 MG PO (21:16)
[2025-02-08 23:37] VITALS: BP 120/66
[2025-02-09] MEDS: MERREM 1000 MG IV ×2 (02:49→13:02)
[2025-02-09] MEDS: STERILE WATER FOR INJECTION 20 ML IV ×2 (02:50→13:02)
[2025-02-09 07:00] VITALS: BP 105/72
--- NOTE | 2025-02-09 08:18 | W.PN.HOSP.TC ---
Today's Communication/Plan
-
Follow-up on the blood cultures
If final cultures negative Place midline
ID consult in morning
Continue with meropenem
Assessment / Plan
Assessment / Plan
Impression:
Presented with falls from home
Altered mental status/toxic metabolic encephalopathy secondary to infection
Catheter associated urinary tract infection
Sepsis present on admission
Acute on chronic anemia
Other conditions:
Transitional cell carcinoma, noninvasive
-Status post TURBT
� Status post intravesical chemo monitored by Dr. Redmond, Dr. Nation
Chronic urinary retention with chronic bilateral hydronephrosis secondary to neurogenic bladder
CKD stage III with baseline creatinine 2 point
Polycythemia vera
Splenomegaly
Recent fall causing subarachnoid hemorrhage and admission to [facility]/[place]
Ambulatory dysfunction requiring walker
Plan:
Toxic metabolic encephalopathy, fall at home suspected secondary to UTI and fever, SHAR
Mental status currently back to baseline baseline neurologic exam with no focal findings.
Prior history of fall complicated with intracranial hemorrhage
Repeat CT scan with no acute abnormality
Catheter associated UTI.
Neurogenic bladder with indwelling Martinez catheter.
CT scan findings consistent with looks like chronic bilateral hydronephrosis.
Martinez catheter placed on admission
Recent UTI with ESBL E. coli reported at [facility] and patient completed course of antibiotics. Details unclear.
Patient urinary culture with ESBL resistant to multiple antibiotics. Ceftriaxone discontinued. Meropenem started. Discussed with pharmacy recommend 1 g every 12 based on creatinine clearance
Await for blood culture to be completely finalized before placing an midline line probably in am
Currently afebrile and hemodynamically stable
Maintain Martinez catheter
Monitor for tolerance
Acute kidney injury likely secondary to retention and dehydration
Renal function improved with Martinez decompression and hydration. Creatinine 2.6�2.1.
Transitional cell carcinoma status post TURBT and intravesical chemotherapy
Outpatient follow-up with urology. Patient strongly recommend to follow-up with his primary urologist for urinary tract evaluation as patient had multiple questions regards for catheter which were answered. Patient stated he is frustrated with the
Martinez catheter and urinary infection.
Chronic normocytic anemia with now trending down hemoglobin suspect secondary to microhematuria.
Iron deficiency.
Start IV iron.
Monitor hemoglobin
Will require transfusion if trending down and below 7.
Polycythemia vera.
Noted with anemia and mild thrombocytopenia
Splenomegaly likely related to myeloproliferative disorder
Ambulatory dysfunction
Multifactorial
Physical/Occupational Therapy evaluation-back to [facility]
Full code
Anticipated Discharge: 24 - 48 hours
Subjective/Interval History
-
Date of Service: February 09, 2025
Seen and examined using flasher adjuster [id number]
Patient denies any abdominal or suprapubic pain
Remains afebrile
Remains frustrated with her chronic Martinez catheter.
Objective Data
-
Vital Signs:
Vital Signs
Temp Pulse Resp BP Pulse Ox
98.5 F 87 20 120/66 97
02/08/25 23:37 02/08/25 23:37 02/08/25 23:37 02/08/25 23:37 02/08/25 23:37
I&O
02/08/25 02/09/25 02/10/25
06:59 06:59 06:59
Intake Total 0 / 0 240 / 240
Output Total 1150 / 1150 2850 / 2850
Balance -1150 / -1150 -2610 / -2610
Physical Exam
-
General: Well Developed and No Apparent Distress
HEENT: Normocephalic, Atraumatic and Moist Mucous Membranes
Respiratory: Clear to Auscultation
Cardiac: Regular Rhythm and S1/S2; Negative Murmur, Rub or Gallop
GI: Soft, Nontender, Nondistended and Normal Bowel Sounds; Negative Organomegaly
Rectal: Deferred by Provider
Genito-urinary: Martinez (light yellow color with some sediment noted )
Musculoskeletal: No Clubbing, No Cyanosis and No Edema
Skin: Negative Rash
Neuro: Awake
[2025-02-09] MEDS: NEURONTIN 100 MG PO ×2 (08:52→20:58)
[2025-02-09] MEDS: PROTONIX 40 MG PO (08:52)
[2025-02-09] MEDS: MYRBETRIQ EXTENDED RELEASE 50 MG PO (08:52)
[2025-02-09] MEDS: DETROL LA 4 MG PO (08:53)
[2025-02-09] MEDS: MIRALAX PO ×2 (08:53→08:54)
[2025-02-09] MEDS: LOW STRENGTH ASPIRIN 81 MG PO (08:53)
--- NOTE | 2025-02-09 11:20 | W.PN.URO.CBU ---
Today's Communication / Plan
-
NO INTERVENTIONS
Assessment / Plan
-
admit for fever/ams- suspected UTI- recent hx of esbl
hx of bladder cancer- current status unkown
hx of high pressure neurogenic bladder with bilateral reflux/hydro and elevated cr
stanford cath appears well positioned
no acute urologic intervention required at this time- CT findings are chronic
pt should pursue prompt follow up with established [facility] urology after discharge for strong consideration of urinary diversion SPOKE WITH [place] MARKETING COORDINATOR BRENT 30 MINS TO OUTLINE NEED FOR PT TO FOLLOW UP DR FROST OR KWAKU OR DOMINIC
WOULD BENEFIT WITH URINARY DIVERSION AFTER EVALUATION OF BLADDER CANCER
Diagnosis
-
Date of Service: February 09, 2025
-
Patient Diagnosis:
Post Op Day:
Patient Diagnosis:CAUTI
Post Op Day:
Patient Diagnosis:
hx of bladder cancer
high pressure neurogenic bladder with reflux- bilateral hydro and renal compromise
UTI- ECOLI
Subjective
-
HATES STANFORD
Objective
-
Vital Signs
Temp Pulse Resp BP Pulse Ox
97.8 F 93 16 105/72 100
02/09/25 07:00 02/09/25 07:00 02/09/25 07:00 02/09/25 07:00 02/09/25 07:00
Intake and Output
02/08/25 02/09/25 02/10/25
06:59 06:59 06:59
Intake Total 0 / 0 240 / 240
Output Total 1150 / 1150 2850 / 2850
Balance -1150 / -1150 -2610 / -2610
Intake:
Oral fluids 240 / 240
IV fluids (Total) 0 / 0
Output:
Urine, Stanford 1150 / 1150 1850 / 1850
Urine, Voided 1000 / 1000
Laboratory Results
02/08/25 11:29
02/08/25 09:58
Review of Systems
-
: Difficulty Voiding
Physical Exam
-
General - well developed, well nourished, no acute distress
Chest - clear bilaterally
Abdomen - soft, non-tender, positive bowel sounds, no CVAT, no incisional pain or distention
Genitalia - normal
Rectal - normal
Skin - warm & dry with no rash
Neuro - AOx3, no motor deficits
Extremities - no clubbing, no cyanosis, no edema
Incision - clean, dry
Dressing - clean, dry, intact
Care Review
Data Reviewed
Discussed with: Other (MARKETING COORDINATOR IN [place])
[2025-02-09] MEDS: FERRLECIT 110 MG IV (13:02)
[2025-02-09 15:00] VITALS: BP 115/60
[2025-02-09] MEDS: FLOMAX 0.4 MG PO (21:00)
[2025-02-09 23:38] VITALS: BP 97/66
[2025-02-10] MEDS: MERREM 1000 MG IV (02:21)
[2025-02-10] MEDS: STERILE WATER FOR INJECTION 20 ML IV (02:21)
[2025-02-10] MEDS: LOW STRENGTH ASPIRIN 81 MG PO (07:39)
[2025-02-10] MEDS: NEURONTIN 100 MG PO ×2 (07:39→20:04)
[2025-02-10] MEDS: MYRBETRIQ EXTENDED RELEASE 50 MG PO (07:39)
[2025-02-10] MEDS: PROTONIX 40 MG PO (07:39)
[2025-02-10] MEDS: DETROL LA 4 MG PO (07:39)
[2025-02-10] MEDS: MIRALAX PO (07:41)
[2025-02-10 07:52] VITALS: BP 100/63
--- NOTE | 2025-02-10 10:36 | W.PN.URO.CBU ---
Today's Communication / Plan
-
per hospitalist no gu intervention
Assessment / Plan
-
admit for fever/ams- suspected UTI- recent hx of esbl
hx of bladder cancer- current status unkown
hx of high pressure neurogenic bladder with bilateral reflux/hydro and elevated cr
stanford cath appears well positioned
no acute urologic intervention required at this time- CT findings are chronic
pt should pursue prompt follow up with established [facility] urology after discharge for strong consideration of urinary diversion SPOKE WITH [facility] POT FILLER BRENT 30 MINS TO OUTLINE NEED FOR PT TO FOLLOW UP DR FROST OR [facility]WAKU OR DOMINIC
WOULD BENEFIT WITH URINARY DIVERSION AFTER EVALUATION OF BLADDER CANCER
Diagnosis
-
Date of Service: February 10, 2025
-
Patient Diagnosis:
Post Op Day:
Patient Diagnosis:
Post Op Day:
Patient Diagnosis:CAUTI
Post Op Day:
Patient Diagnosis:
hx of bladder cancer
high pressure neurogenic bladder with reflux- bilateral hydro and renal compromise
UTI- ECOLI
Subjective
-
no new complaints
Objective
-
Vital Signs
Temp Pulse Resp BP Pulse Ox
98.5 F 92 16 100/63 98
02/10/25 07:52 02/10/25 07:52 02/10/25 07:52 02/10/25 07:52 02/10/25 07:52
Intake and Output
02/09/25 02/10/25 02/11/25
06:59 06:59 06:59
Intake Total 240 / 240 240 / 240
Output Total 2850 / 2850 1000 / 1000
Balance -2610 / -2610 -760 / -760
Intake:
Oral fluids 240 / 240 240 / 240
Output:
Urine, Stanford 1850 / 1850 1000 / 1000
Urine, Voided 1000 / 1000
Laboratory Results
02/08/25 11:29
02/08/25 09:58
Review of Systems
-
: Difficulty Voiding
Physical Exam
-
General - well developed, well nourished, no acute distress
Chest - clear bilaterally
Abdomen - soft, non-tender, positive bowel sounds, no CVAT, no incisional pain or distention
Genitalia - normal
Rectal - normal
Skin - warm & dry with no rash
Neuro - AOx3, no motor deficits
Extremities - no clubbing, no cyanosis, no edema
Incision - clean, dry
Dressing - clean, dry, intact
[2025-02-10] MEDS: FERRLECIT 110 MG IV (13:36)
[2025-02-10] MEDS: STERILE WATER FOR INJECTION 10 ML IV (13:36)
[2025-02-10] MEDS: MERREM 500 MG IV (13:36)
--- NOTE | 2025-02-10 14:01 | CON.ID ---
Consultation
-
Date/Time Consultation Requested: 02/10/2025 12:14
Date/Time Consultation Performed: 02/10/2025 13:45
Requesting Provider: Dr. Blanton
Performing Provider: Dr. Palafox
Reason for Consultation: Complicated urinary tract infection
Chief Complaint / Past History
History of Present Illness
Nadege Leigh is a 79-year-old man being evaluated at the request of Dr. Blanton in regards to complicated urinary tract infection. History is obtained from chart review.
The patient has a history of transitional cell carcinoma diagnosed in 2022, at which time he underwent intravesical chemotherapy. He also has a history of high-pressure neurogenic bladder with significant reflux and hydro. He has been followed by
urology at [place], and previously urinary diversion was recommended, but the patient declined. He recently was admitted to [facility] after a fall, at which time he was diagnosed with a subdural hematoma. He evidently recently was treated for ESBL E.
coli in the urine with a course of Unasyn.
On 02/05 he was sent from his [facility] to [facility] for further evaluation of fever. According to notes he self removed his catheter at the evening prior to admission. In the ER his catheter was replaced but he was found to be febrile.
He was started on empiric Rocephin, but changed to meropenem following the return of culture data. Infectious Diseases is asked to comment upon further antimicrobial therapy.
Past History
Additional Past Medical History:
CKD
Urinary retention
Aortic insufficiency
HTN
PSVT
Polycythemia vera
Allergy History:
No Known Allergies Allergy (Unverified 02/05/25 08:51)
Medications Reviewed: Yes
Current Antibiotics:
Meropenem
Social History
Tobacco: Non-Smoker
Alcohol: None
Employment: Not Employed
Family History
Family History: Not Pertinent
Review of Systems
Vital Signs
Temp Pulse Resp BP Pulse Ox
98.5 F 92 16 100/63 98
02/10/25 07:52 02/10/25 07:52 02/10/25 07:52 02/10/25 07:52 02/10/25 08:00
Physical Exam
Physical Exam
Constitutional: No Acute Distress, Comfortable and Non-toxic
Head: Normocephalic
Eyes: No Conjunctival Hemorrhage and Sclera Anicteric
Oral: No Thrush and No Ulcers
Cardiovascular: Regular Rate and S1/S2; Negative S3/S4
Pulmonary: Clear; Negative Wheezes or Rales
Gastrointestinal: Soft, Non Tender and Non Distended
Genito-Urinary: Stanford and Clear Urine; Negative Turbid Urine or Hematuria
Skin: Warm and Dry; Negative Rash or Jaundice
Neurological: Awake and Alert
Psychological: Calm
Lab / Diagnostic Study Results
02/08/25 11:29
02/08/25 09:58
Abs Immat Gran (auto) 0.1 10^3/uL (0-0.05) H 02/08/25 11:29
Absolute Neuts (auto) 6.3 10^3/uL (1.4-6.5) 02/08/25 11:29
Absolute Lymphs (auto) 0.4 10^3/uL (1.2-3.4) L 02/08/25 11:29
Absolute Monos (auto) 0.2 10^3/uL (0.1-0.6) 02/08/25 11:29
Absolute Basos (auto) 0.0 10^3/uL (0-0.2) 02/08/25 11:29
Immature Gran % 0.7 % (0-0.5) H 02/08/25 11:29
Neutrophils % 89.5 % (42.2-75.2) H 02/08/25 11:29
Lymphocytes % 5.5 % (20.5-51.1) L 02/08/25 11:
Monocytes % 3.1 % (1.7-9.3) 02/08/25 11:29
Eosinophils % 1.1 % (0-6) 02/08/25 11:29
Basophils % 0.1 % (0-2) 02/08/25 11:29
Lactic Acid Cancelled 02/05/25 13:15
Ur Squamous Epith Cells 0-2 /LPF (Few) 02/05/25 09:16
Microbiology Results
Micro:
02/05/25 09:51 Blood Culture - Final
Blood/Venous No Growth - Final Report
02/05/25 09:15 Blood Culture - Final
Blood/Venous No Growth - Final Report
02/05/25 09:16 Urine Culture - Final
Urine Escherichia coli - ESBL
M.I.C. RX
--------- ---
Amoxicillin/Potas. Clavulanate <=8/4 S
Ampicillin >16 R
Ampicillin/Sulbactam >16/8 R
Aztreonam 16 R
Cefazolin >16 R
Cefepime >16 R
Ceftazidime <=1 S
Ceftriaxone >2 R
Ertapenem <=0.5 S
Ciprofloxacin 0.5 I
Gentamicin >8 R
Meropenem <=1 S
Nitrofurantoin-Urine Only <=32 S
Piperacillin/Tazobactam <=8 S
Tetracycline <=4 S
Tobramycin 4 S
Trimethoprim/Sulfamethoxazole <=2/38 S
Imaging:
02/06/2025 CT head without contrast: No CT evidence for acute intracranial hemorrhage. Moderate diffuse cerebral and cerebellar volume loss. 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 Mild periventricular
white matter leukoaraiosis.
Assessment / Plan
Complicated urinary tract infection secondary to ESBL E. coli
Chronic Stanford catheter
Urinary retention with chronic stanford
Leukocytosis; improved
CKD
Aortic insufficiency
HTN
PSVT
Recommendations:
Would continue with a 10-day course of antibiotics. Patient currently on day #3 of meropenem.
For ease of administration, transition to ertapenem 500 mg IV every 24 hours to complete 7 additional days.
Prescription for retirement facility sent to Case management.
Midline ordered
Care Review
Plan reviewed with: Physician (Hospitalist)
--- NOTE | 2025-02-10 14:04 | CM ---
Addendum entered by Hannah Prince 02/10/25 16:36:
traffic incident management manager spoke with Rayna at [facility] and faxed all clinicals to for Auth, IV ABX script sent to [facility]. Midline placed.
[facility]
Report [phone]

Original Note:
traffic incident management manager reviewed patient's chart and plan is for patient to go to [facility] on IV ABX, counter caser faxed over script to admissions at [facility] admissions and will await determination, counter caser will reach out to patient's
insurance for possible Auth for skilled placement.
Plan; Skilled at [facility] needs Auth from insurance, also IV ABX.
[2025-02-10 14:59] VITALS: BP 121/71; O2SAT 97
[2025-02-10 15:42] VITALS: BP 119/75
--- NOTE | 2025-02-10 16:55 | W.PN.HOSP.TC ---
Today's Communication/Plan
-
IV antibiotics
PICC line to complete infusion at the nursing facility.
Discharge planning
Assessment / Plan
Assessment / Plan
Impression:
Presented with falls from home
Altered mental status/toxic metabolic encephalopathy secondary to infection
Catheter associated urinary tract infection
Sepsis present on admission
Acute on chronic anemia
Other conditions:
Transitional cell carcinoma, noninvasive
-Status post TURBT
� Status post intravesical chemo monitored by Dr. Redmond, Dr. Nation
Chronic urinary retention with chronic bilateral hydronephrosis secondary to neurogenic bladder
CKD stage III with baseline creatinine 2 point
Polycythemia vera
Splenomegaly
Recent fall causing subarachnoid hemorrhage and admission to [facility]/[place]
Ambulatory dysfunction requiring walker
Plan:
Toxic metabolic encephalopathy, fall at home suspected secondary to UTI and fever, SHAR
Mental status currently back to baseline baseline neurologic exam with no focal findings.
Prior history of fall complicated with intracranial hemorrhage
Repeat CT scan with no acute abnormality
Catheter associated UTI.
Neurogenic bladder with indwelling Martinez catheter.
CT scan findings consistent with looks like chronic bilateral hydronephrosis.
Martinez catheter placed on admission
Recent UTI with ESBL E. coli reported at [facility] and patient completed course of antibiotics. Details unclear.
Patient urinary culture with ESBL resistant to multiple antibiotics. Ceftriaxone discontinued.
Blood cultures negative to date
Urine culture with ESBL E. coli.
ID input appreciated
Antibiotics: Initially ceftriaxone transition to meropenem with plan to transition to ertapenem for once a day infusion and complete course of IV antibiotics at the nursing facility. PICC line to be placed.
Acute kidney injury likely secondary to retention and dehydration
Renal function improved with Martinez decompression and hydration. Creatinine 2.6�2.1.
Transitional cell carcinoma status post TURBT and intravesical chemotherapy
Outpatient follow-up with urology. Patient strongly recommend to follow-up with his primary urologist for urinary tract evaluation as patient had multiple questions regards for catheter which were answered. Patient stated he is frustrated with the
Martinez catheter and urinary infection.
Chronic normocytic anemia with now trending down hemoglobin suspect secondary to microhematuria.
Iron deficiency.
Start IV iron.
Monitor hemoglobin
Will require transfusion if trending down and below 7.
Polycythemia vera.
Noted with anemia and mild thrombocytopenia
Splenomegaly likely related to myeloproliferative disorder
Ambulatory dysfunction
Multifactorial
Physical/Occupational Therapy evaluation-back to [facility]
Full code
Anticipated Discharge: Within 24 hours
Subjective/Interval History
-
Date of Service: February 10, 2025
Objective Data
-
Vital Signs:
Vital Signs
Temp Pulse Resp BP Pulse Ox
98.3 F 97 16 119/75 98
02/10/25 15:42 02/10/25 15:42 02/10/25 15:42 02/10/25 15:42 02/10/25 15:42
I&O
02/09/25 02/10/25 02/11/25
06:59 06:59 06:59
Intake Total 240 / 240 240 / 240
Output Total 2850 / 2850 1000 / 1000
Balance -2610 / -2610 -760 / -760
Physical Exam
-
General: Well Developed and No Apparent Distress
HEENT: Normocephalic, Atraumatic and Moist Mucous Membranes
Respiratory: Clear to Auscultation
Cardiac: Regular Rhythm and S1/S2; Negative Murmur, Rub or Gallop
GI: Soft, Nontender, Nondistended and Normal Bowel Sounds; Negative Organomegaly
Rectal: Deferred by Provider
Genito-urinary: Martinez (light yellow color with some sediment noted )
Musculoskeletal: No Clubbing, No Cyanosis and No Edema
Skin: Negative Rash
Neuro: Awake
[2025-02-10] MEDS: INVANZ 55 MG IV (20:04)
[2025-02-10] MEDS: FLOMAX 0.4 MG PO (20:04)
[2025-02-10 23:40] VITALS: BP 113/70
[2025-02-11 07:38] VITALS: BP 112/71
[2025-02-11 07:55] LABS: Blood Urea Nitrogen 33 mg/dl (9-20); Calcium 8.5 mg/dl (8.4-10.2); Carbon Dioxide 25 mmol/L (22-30); Chloride 110 mmol/L (98-107); Estimated Creatinine Clearance 27 ml/min; Glucose 93 mg/dl (70-99); Potassium 4.7 mmol/L (3.5-5.1); Sodium 139 mmol/L (135-145); eGFR 35.88
[2025-02-11 08:00] LABS: % Basophils 0.1 % (0-2); % Eosinophils 1.4 % (0-6); % Immature Granulocytes 0.8 % (0-0.5); % Lymphocytes 9.6 % (20.5-51.1); % Monocytes 1.7 % (1.7-9.3); % Neutrophils 86.4 % (42.2-75.2); Absolute Eosinophils 0.1 10^3/uL (0-0.7); Absolute Immature Granulocytes 0.1 10^3/uL (0-0.05); Absolute Lymphocytes 0.8 10^3/uL (1.2-3.4); Absolute Monocytes 0.2 10^3/uL (0.1-0.6); Absolute Neutrophils 7.5 10^3/uL (1.4-6.5); Hematocrit 28.2 % (39.0-52.0); Hemoglobin 8.9 g/dL (13.0-18.0); Mean Corp Hgb Conc. 31.6 g/dL (33.0-37.0); Mean Corpuscular Hgb 24.7 pg (27.0-31.0); Mean Corpuscular Volume 78.3 fL (80.0-94.0); Nucleated Red Blood Cells % 0 % (-); Platelet Count 103 10^3/uL (130-400); Red Cell Dist. Width 19.7 % (11.5-14.5); White Blood Cell Count 8.7 10^3/uL (4.8-10.8)
[2025-02-11] MEDS: MYRBETRIQ EXTENDED RELEASE 50 MG PO (08:21)
[2025-02-11] MEDS: LOW STRENGTH ASPIRIN 81 MG PO (08:22)
[2025-02-11] MEDS: NEURONTIN 100 MG PO (08:22)
[2025-02-11] MEDS: DETROL LA 4 MG PO (08:22)
[2025-02-11] MEDS: MIRALAX 17 GRAMS PO (08:22)
[2025-02-11] MEDS: PROTONIX 40 MG PO (08:22)
--- NOTE | 2025-02-11 11:52 | CM ---
Addendum entered by Hannah Prince 02/11/25 15:21:
Auth received from Prieto Gregg [facility] is 03/13/25, Auth [id number], Auth provided to admissions at [facility].
Addendum entered by Hannah Prince 02/11/25 12:35:
[facility]
Report [phone]

Addendum entered by Hannah Prince 02/11/25 12:14:
Patient to return to [facility]
Original Note:
Chart reviewed and still waiting on Auth from patient's insurance for skilled at [facility], script sent for IV ABX.
[facility]
Report [phone]
--- NOTE | 2025-02-11 12:15 | W.DS.TRANS ---
DC Summary - [employer]
-
Discharge Instructions:
Discharge Diagnosis/Procedures Impression:
Presented with falls from home
Altered mental status/toxic metabolic
encephalopathy secondary to infection
Catheter associated urinary tract infection
Sepsis present on admission
Acute on chronic anemia
Other conditions:
Transitional cell carcinoma, noninvasive
-Status post TURBT
� Status post intravesical chemo monitored by Dr
. Dr. Rios Redmond
Chronic urinary retention with chronic bilateral
hydronephrosis secondary to neurogenic bladder
CKD stage III with baseline creatinine 2 point
Polycythemia vera
Splenomegaly
Recent fall causing subarachnoid hemorrhage and
admission to [facility]/[place]
Ambulatory dysfunction requiring walker
Diet Regular
Instructions:
Stand-Alone Forms:
Changes to Home Medications: Yes
Discharge Medications:
DC Medications w/original date entered in [employer]
acetaminophen 325 mg tablet (Tylenol) 650 mg PO Q6HPRN PRN mild pain, fever 02/05/25
aspirin 81 mg chewable tablet 81 mg PO DAILY 02/05/25
bisacodyl 10 mg rectal suppository (Dulcolax (bisacodyl)) 10 mg [place] DAILYPRN PRN if no bm aft mom 02/05/25
gabapentin 100 mg capsule 100 mg PO BID 02/05/25
magnesium hydroxide 400 mg/5 mL oral suspension (Milk of Magnesia) 2,400 mg PO HSPRN PRN if no bm by 3rd day 02/05/25
mirabegron 50 mg tablet,extended release 24 hr 50 mg PO DAILY 02/05/25
pantoprazole 40 mg tablet,delayed release 40 mg PO DAILY 02/05/25
polyethylene glycol 3350 17 gram oral powder packet 17 g PO DAILY 02/05/25
tamsulosin 0.4 mg capsule 0.4 mg PO HS 02/05/25
tolterodine 4 mg capsule,extended release 24 hr 4 mg PO DAILY 02/05/25
Ertapenem [Invanz] 500 mg 100 mls/hr IV Q24H 02/11/25
Home Medication Changes
Antibiotics to complete total of 10 days treatment for complicated UTI with ESBL Ecoli
Pending Results: No
[2025-02-11 15:18] VITALS: BP 104/75
--- NOTE | 2025-02-11 15:25 | VATNOTE ---
Vat NOTE: Right midline dc'd due to occlusion. While placing midline in the left arm noticed left forearm red painful +1 edema from an old iv site. Warm compress applied for comfort. Will monitor closely.
== END 2025-02-11 17:16 | DRG 698 ==
LOC: 4 WEST ACU 13:37
PROVIDERS: Hospitalist; Physician Assistant; Physician Assistant Medical; ADMITTING PHYSICIAN Hospitalist; ATTENDING PHYSICIAN Internal Medicine; CONSULT PHYSICIAN Internal Medicine Infectious Disease; CONSULT PHYSICIAN Specialist; EMERGENCY PHYSICIAN Emergency Medicine; FAMILY PHYSICIAN Internal Medicine
DX: T83.511A Infection and inflammatory reaction due to indwelling urethral catheter, initial encounter (principal); A41.9 Sepsis, unspecified organism; G92.8 Other toxic encephalopathy; Z16.12 Extended spectrum beta lactamase (ESBL) resistance; N13.6 Pyonephrosis; D47.1 Chronic myeloproliferative disease; N17.9 Acute kidney failure, unspecified; N18.30 Chronic kidney disease, stage 3 unspecified; I12.9 Hypertensive chronic kidney disease with stage 1 through stage 4 chronic kidney disease, or unspecified chronic kidney disease; D45 Polycythemia vera; G62.9 Polyneuropathy, unspecified; R79.89 Other specified abnormal findings of blood chemistry; R16.1 Splenomegaly, not elsewhere classified; I35.1 Nonrheumatic aortic (valve) insufficiency; N31.9 Neuromuscular dysfunction of bladder, unspecified; D50.9 Iron deficiency anemia, unspecified; E86.0 Dehydration; R33.9 Retention of urine, unspecified; R31.29 Other microscopic hematuria; R26.2 Difficulty in walking, not elsewhere classified; T83.021A Displacement of indwelling urethral catheter, initial encounter; B96.20 Unspecified Escherichia coli [E. coli] as the cause of diseases classified elsewhere; D69.6 Thrombocytopenia, unspecified; Y84.6 Urinary catheterization as the cause of abnormal reaction of the patient, or of later complication, without mention of misadventure at the time of the procedure; Y92.129 Unspecified place in nursing home as the place of occurrence of the external cause; Z60.3 Acculturation difficulty; Z87.440 Personal history of urinary (tract) infections; Z85.51 Personal history of malignant neoplasm of bladder; Z87.820 Personal history of traumatic brain injury; Z90.49 Acquired absence of other specified parts of digestive tract; Z92.21 Personal history of antineoplastic chemotherapy
CPT/HCPCS: 51702; 70450; 74176; 80048; 80053; 81003; 81015; 82607; 82728; 82746; 83540; 83550; 83605; 85025; 85027; 87040; 87086; 87088; 87186; 96361; 96365; 97162; 97166; 97530; 99285; J1335; J2185; J2916

== ENCOUNTER 2025-04-16 21:11 | Inpatient (IN) | payer OTHER, SELFPAY ==
[2025-04-16 16:07] VITALS: BP 123/80
[2025-04-16 16:29] LABS: Urine Character Slightly Cloudy (Clear)
[2025-04-16 16:31] LABS: Hematocrit 41.3 % (39.0-52.0); Hemoglobin 13.1 g/dL (13.0-18.0); Mean Corp Hgb Conc. 31.7 g/dL (33.0-37.0); Mean Corpuscular Volume 80.5 fL (80.0-94.0); Nucleated Red Blood Cells % 0 % (-); Platelet Count 126 10^3/uL (130-400); Red Cell Dist. Width 18.6 % (11.5-14.5)
[2025-04-16 16:36] LABS: Urine Squamous Cell 0-2 /LPF (Few)
[2025-04-16 16:38] LABS: Urine Red Blood Cell 50-60 /HPF (0-2); Urine White Cell >100 /HPF (0-5)
[2025-04-16 16:44] LABS: ALT (SGPT) 17 U/L (0-50); AST (SGOT) 16 U/L (17-59); Albumin 4.4 g/dl (3.5-5.0); Alkaline Phosphatase 66 U/L (38-126); Blood Urea Nitrogen 42 mg/dl (9-20); Calcium 8.8 mg/dl (8.4-10.2); Carbon Dioxide 20 mmol/L (22-30); Chloride 109 mmol/L (98-107); Glucose 165 mg/dl (70-99); Sodium 136 mmol/L (135-145); Total Protein 7.2 g/dl (6.3-8.2); eGFR 38.29
[2025-04-16 16:49] LABS: Potassium 4.6 mmol/L (3.5-5.1)
[2025-04-16 16:58] VITALS: BP 126/79
[2025-04-16 17:00] VITALS: BP 116/75
--- NOTE | 2025-04-16 18:15 | ED.GENMED ---
History of Present Illness
General
Chief Complaint: Change in Mental Status
Source: patient and previous hospital records
Time Seen by Provider: 04/16/25 18:11
History of Present Illness
History of Present Illness:
79-year-old [place]er speaking male from [facility] with a change in mental status per staff.
Admitted 02/05 to 02/11 for complicated urinary tract infection, acute urine retention, sepsis and acute on chronic anemia
He was discharged back to the custodial on ertapenem 500 mg 100 mL/h IV every 24 hours for 10 days starting 02/11
Patient with Martinez catheter, neurogenic bladder. History of transitional cell carcinoma noninvasive status post transurethral resection of bladder tumor, CKD stage III with baseline creatinine around 2, polycythemia vera, splenomegaly, subarachnoid
hemorrhage from a fall, ambulatory dysfunction requiring walker
Spoke with Frankie BEJARANO who states baseline patient is baseline alert and oriented, has a history of hydronephrosis, ESBL in urine, frequent flyer for UTIs, when he gets these he goes 'downhill really fast'
Today fever of 100.8 and was tachycardic, they were going to call for a PICC line and do IV antibiotics and given fluids but his PCP said he is going to decline too fast and must go to ER.
SonMiguel notified that patient is being transferred
Past History
Past History
ED Past Medical History: GERD, HTN, Hypercholesterolemia and Other (Frequent UTIs, Martinez catheter, ARF, hydronephrosis, urosepsis )
Social History
Tobacco: Non-smoker
Alcohol: None
Personal: Single
Living: custodial
Review of Systems
Review of Systems
Allergies reviewed?: Yes
Unable to obtain full review of systems at this time due to: language barrier
Other source history: custodial, ambulance crew and transfer record
Constitutional: Reports fever
Neurological: Reports other (Confusion)
Phy Exam
Physical Exam
Physical Exam:
GENERAL: No acute distress. Alert, [place] only speaking
CONSTITUTIONAL: Temp 100.1 p.o.
EYES: clear, conjunctivae normal
ENMT: moist mucus membranes, Pharynx nl
RESPIRATORY: Regular respirations, nonlabored, lungs clear.
CARDIOVASCULAR: Regular rate and rhythm, no murmurs, no rubs.
GI: Soft, nontender, normal BS
: Martinez catheter intact, urine draining around the catheter, hypospadias
MUSCULOSKELETAL: Moves with ease. Well perfused. No edema
SKIN: Warm, dry, pink
PSYCH: Quiet mood and affect but easily agitated and attempting to get out of bed.. Well kept, interactive and appropriate
NEUROLOGIC: Awake, alert . No focal neurological deficits
Sepsis
Sepsis Screening
Sepsis Assessment: Sepsis Ruled Out
Sepsis Screen
Sepsis Screen: Sepsis Ruled Out
Date: 04/16/25
Time: 23:12
Course
Orders/Labs/Results
Orders:
Orders
04/16/25 Dinner
Regular
At Your Request: Limited Participation
04/16/25 16:00
Electrocardiogram (*1) Urgent
Reason for Study: Other
Other Reason for Exam: Possible Sepsis
Cardiac Monitoring- Treatment ONCE
IV Insert/Care/Rem.- Treatment PRN
04/16/25 16:01
EKG- Treatment ONCE
04/16/25 16:14
Complete Blood Count/With Diff Urgent
Comprehensive Metabolic Panel Urgent
Lactic Acid Q4H
Comment: ON ICE, CANCEL 2ND ORDER IF FIRST LACTIC ACID LEVEL <2
Urinalysis Reflex To Culture Urgent
Date Specimen was Collected: 04/16/25
Time Specimen was Collected: 16:01
Urine Microscopic Reflex Cult Urgent
Blood Culture Q20M
BERNICE Source: Blood/Venous
Specimen Description:
Date Specimen was Collected: 04/16/25
Time Specimen was Collected: 16:01
Comment: Urgent from separate sites. If patient screens positive for possible sepsis
Urine Culture Urgent
BERNICE Source: U
Specimen Description:
Date Specimen was Collected: 04/16/25
Time Specimen was Collected: 16:01
04/16/25 16:20
Blood Culture Q20M
BERNICE Source: Blood/Venous
Specimen Description:
Comment: Urgent from separate sites. If patient screens positive for possible sepsis
04/16/25 19:23
Meropenem [Merrem] 1,000 mg IV NOW STA
04/16/25 19:57
Sterile Water [Sterile Water For Injection] 20 ml .ROUTE .STK-MED
04/16/25 20:39
Admit/Transfer Patient As Directed
Co-Sign Provider:
Level of Care: Inpatient admission
Assign to:: Telemetry
Physician / Group: Hill Baron
Diagnosis: sepsis, catheter associated urinary tract infection
Reason for Telemetry: Arrhythmia
Date to Stop Telemetry: 04/19/25
Time to Stop Telemetry: 11:00
Reason for Hospitalization: sepsis, catheter associated urinary tract infection
Expected length of stay greater than two midnights?: Yes
ELOS- Estimated Length of Stay in days: 3
I certify the patient meets the requirements for IP care: Yes
04/16/25 20:40
PRN Pain Medication Management As Directed
May give lesser potent ordered pain med per pt: Yes
preference::
Protocol:: Medication orders for pain may be administered in a
manner that supports deferring to patient preference
when the pt is:
- Requesting an ordered lesser potent pain medication.
Least to most potent pain medications are defined
as: acetaminophen < NSAID < tramadol < opioids
(morphine, oxycodone, hydromorphone).
- Requesting a lesser dose of the same medication IF
ORDERED.
- Requesting a less intrusive route of administration
if both routes are prescribed by the provider (PO <
IV).
04/16/25 20:41
Code Status As Directed
Resuscitation Status: Full Code
04/16/25 21:03
PRN Pain Medication Management As Directed
May give lesser potent ordered pain med per pt: Yes
preference::
Protocol:: Medication orders for pain may be administered in a
manner that supports deferring to patient preference
when the pt is:
- Requesting an ordered lesser potent pain medication.
Least to most potent pain medications are defined
as: acetaminophen < NSAID < tramadol < opioids
(morphine, oxycodone, hydromorphone).
- Requesting a lesser dose of the same medication IF
ORDERED.
- Requesting a less intrusive route of administration
if both routes are prescribed by the provider (PO <
IV).
04/16/25 22:04
0.9% Sodium Chloride 1000 ml [Nss] 1,000 ml IV 80 mls/hr
Acetaminophen [Tylenol] 650 mg PO Q4HPRN PRN
Lactated Ringers [Lr] 1,000 ml IV 60 mls/hr
Tamsulosin [Flomax] 0.4 mg PO HS
04/16/25 22:04
Activity As Directed
Activity Level: As Tolerated
Intake/ Output As Directed
Frequency: Per unit guidelines
Vital Signs As Directed
Frequency: Per unit guidelines
Weight As Directed
Frequency: Once
Comment: on admission
DX Deep Vein Thrombosis Video Routine
04/16/25 22:30
Gabapentin [Neurontin] 100 mg PO Q12
04/17/25 00:00
Heparin 5,000 units SC Q8
04/17/25 06:00
Basic Metabolic Panel IN AM
Complete Blood Count/No Diff IN AM
04/17/25 08:00
Aspirin Chewable [Low Strength Aspirin] 81 mg PO DAILY
Ertapenem [Invanz] 500 mg 0.9% Sodium Chloride [Nss] 50 ml IV Q24H
Mirabegron Extended Release [Myrbetriq Extended Release] 50 mg PO DAILY
Pantoprazole [Protonix] 40 mg PO DAILY
Polyethylene Glycol Powder [Miralax] 17 grams PO DAILY
Sennosides [Senokot] 8.6 mg PO DAILY
Tolterodine Extended Release [Detrol LA] 4 mg PO DAILY
04/19/25 11:00
DC Protocol for Telemetry ONCE
Abnormal Lab Results
04/16/25
16:14
WBC 11.6 H 10^3/uL
(4.8-10.8)
MCH 25.5 L pg
(27.0-31.0)
MCHC 31.7 L g/dL
(33.0-37.0)
RDW 18.6 H %
(11.5-14.5)
Plt Count 126 L 10^3/uL
(130-400)
Abs Immat Gran (auto) 0.1 H 10^3/uL
(0-0.05)
Absolute Neuts (auto) 10.8 H 10^3/uL
(1.4-6.5)
Absolute Lymphs (auto) 0.4 L 10^3/uL
(1.2-3.4)
Immature Gran % 0.7 H %
(0-0.5)
Neutrophils % 92.9 H %
(42.2-75.2)
Lymphocytes % 3.1 L %
(20.5-51.1)
Chloride 109 H mmol/L
(98-107)
Carbon Dioxide 20 L mmol/L
(22-30)
BUN 42 H mg/dl
(9-20)
Creatinine 1.8 H mg/dL
(0.7-1.3)
Glucose 165 H mg/dl
(70-99)
Total Bilirubin 1.9 H mg/dl
(0.2-1.3)
AST 16 L U/L
(17-59)
Ur Occult Blood Reflex 4+ A
(Negative)
Urine Nitrite (Reflex) Positive A
(Negative)
Urine Urobilinogen 2+ A
(Neg - 1+)
Leukocyte Esterase Rfl 3+ A
(Negative)
Urine RBC 50-60 A /HPF
(0-2)
Urine WBC (Reflex) >100 A /HPF
(0-5)
Urine Bacteria (Reflex) Many A
(Negative)
Urine Albumin (Reflex) 3+ A
(Neg - Trace)
04/16/25 16:14
04/16/25 16:14
Vital Signs
Initial and Last Documented VS:
Initial Vital Signs
Temp Pulse BP
100.1 F 128 123/80
04/16/25 16:07 04/16/25 16:07 04/16/25 16:07
Last Documented Vital Signs
Temp Pulse Resp BP Pulse Ox
99.3 F 119 25 116/75 96
04/16/25 19:04 04/16/25 17:30 04/16/25 17:30 04/16/25 17:00 04/16/25 18:22
MDM/Problems Addressed
Differential Diagnosis Includes:
Encephalopathy secondary to UTI, catheter associated urinary tract infection, sepsis
MDM/Problems Addressed:
79-year-old [place] speaking male from [place] [facility] with a change in mental status per staff.
Admitted 02/05 to 02/11 for complicated urinary tract infection, acute urine retention, sepsis and acute on chronic anemia
He was discharged back to the custodial on ertapenem 500 mg 100 mL/h IV every 24 hours for 10 days starting 02/11
Patient with Martinez catheter, neurogenic bladder. History of transitional cell carcinoma noninvasive status post transurethral resection of bladder tumor, CKD stage III with baseline creatinine around 2, polycythemia vera, splenomegaly, subarachnoid
hemorrhage from a fall, ambulatory dysfunction requiring walker
Spoke with
Spoke with Frankie BEJARANO who states baseline patient is baseline alert and oriented, has a history of hydronephrosis, ESBL in urine, frequent flyer for UTIs, when he gets these he goes 'downhill really fast'
Today fever of 100.8 and was tachycardic, they were going to call for a PICC line and do IV antibiotics and given fluids but his PCP said he is going to decline too fast and must go to ER.
SonMiguel notified that patient is being transferred
7:15 PM:
CBC with mild leukocytosis otherwise no clinically significant abnormality
CMP: Consistent with his baseline CKD, no clinically significant abnormality
UA: From Martinez catheter: Positive nitrite 3+ leukocytes, 50-60 RBCs, greater than 100 WBCs, many bacteria
Lactic WNL
Elderly male with low-grade fever, tachycardia, indwelling Martinez catheter, recent ESBL UTI with sepsis, sent here from custodial by his PCP due to the fact that when he gets febrile and UTIs, he 'goes downhill fast' according to custodial
staff.
retirement cannot get PICC line and IV antibiotics today
Plan: Admit: Martinez catheter changed that it was leaking around the urethra
Urine and Blood cultures pending
Hospitalist notified of admission.
*Pulse Oximetry
SaO2: 96
Oxygen Mode of Delivery: Room air
Patient hypoxic: no
*Critical Care Note
Total Time (30-74mins, 75-104mins- exclusive of procedures): Not Applicable
ED Attending Note
-
Portions of this chart may have been created with voice recognition software.� Occasional wrong word or��sound alike� substitutions may have occurred due to the inherent limitations of voice recognition software.
Discharge Plan
Departure
Patient Disposition: Admit
Date of Disposition: 04/16/25
Time of Disposition: 19:33
Admit to: Med/Surg
Presentation/result/management discussed w/ accepting MD/DO: Hospitalist
Condition: Fair
Discharge Problem:
Altered mental state, Catheter-associated urinary tract infection
Interventions
Interventions:
*Risk Screen - Suicide Last Done: 04/16/25 16:07
*General Assessment Last Done: 04/16/25 16:07
*Neglect/Abuse Screening Last Done: 04/16/25 16:07
*ED- Fall Risk Assessment Last Done: 04/16/25 16:07
*ED COVID-19 Vaccine History Last Done: 04/16/25 16:07
*Nursing Disposition Last Done: 04/16/25 22:08
ED- Pulmonary Assessment Last Done: 04/16/25 16:22
ED-Psychological Assessment Last Done: 04/16/25 22:10
ED- Neurological Assessment Last Done: 04/16/25 16:07
ED- Cardiac Assessment Last Done: 04/16/25 16:22
ED Swallowing Screen Last Done: 04/16/25 21:35
Discharge Date and Time
Discharge Date/Time: 04/16/25 22:11
--- NOTE | 2025-04-16 19:50 | HPS.HSE ---
Family Physician
-
Family Physician: Kirill Borrero MD
Chief Complaint
-
change in mental status
History of Present Illness
Patient is a 79-year-old male with past medical history significant for CKD III, subarachnoid hemorrhage, paroxysmal supraventricular tachycardia, essential hypertension, bladder cancer, polycythemia vera and peripheral neuropathy who present to
[facility] ED for evaluation of change in mental status. Patient resides at [facility] and was sent for evaluation by staff for change in mental status, tachycardia and low grade fever. He is known to have frequent UTIs with chronic stanford. Patient
AAOx2-3 at assessment and pleasant. Patient complains of pain in groin and stanford insertion site if touched. Denies fever, chills, cough, shortness of breath, nausea or vomiting.
Medical History
Past Medical History
Past Medical History: Reports Other
Additional Past Medical History:
CKD III
Subarachnoid Hemorrhage
Paroxysmal Supraventricular Tachycardia
Essential Hypertension
Bladder Cancer
Polycythemia Vera
Peripheral Neuropathy
Past Surgical History: Reports Other
Additional Past Surgical History:
Appendectomy
Cholecystectomy
Hernia Repair
TURBT
Social History
Tobacco: Non-smoker
Living: Prison
Family History
Family History: Unable to Obtain
Allergies / Home Medications
Allergies reflects when Allergies were last updated in [employer].
Home Medications with original date entered in [employer]
Allergy/Medication List:
Allergies
Allergy/AdvReac Type Severity Reaction Status Date / Time
No Known Allergies Allergy Verified 04/16/25 16:54
Home Medications
acetaminophen 325 mg tablet (Tylenol) 650 mg PO Q6HPRN PRN mild pain/fever>100F 02/05/25
aspirin 81 mg chewable tablet 81 mg PO DAILY 02/05/25
bisacodyl 10 mg rectal suppository (Dulcolax (bisacodyl)) 10 mg [place] DAILYPRN PRN if no BM after MOM 02/05/25
gabapentin 100 mg capsule 100 mg PO Q12H 02/05/25
magnesium hydroxide 400 mg/5 mL oral suspension (Milk of Magnesia) 2,400 mg PO HSPRN PRN if no BM x 3 days 02/05/25
mirabegron 50 mg tablet,extended release 24 hr 50 mg PO DAILY 02/05/25
polyethylene glycol 3350 17 gram oral powder packet 17 g PO DAILY 02/05/25
tamsulosin 0.4 mg capsule 0.4 mg PO HS 02/05/25
tolterodine 4 mg capsule,extended release 24 hr 4 mg PO DAILY 02/05/25
calcium carbonate 500 mg PO DAILYPRN PRN heartburn 04/16/25
omeprazole 20 mg capsule,delayed release 20 mg PO DAILY 04/16/25
sennosides 8.6 mg tablet (senna) 8.6 mg PO DAILY 04/16/25
Review of Systems
-
History Source: Patient
: Reports Dark Urine, Stanford and Other (groin and Stanford insertion area pain )
Physical Exam
Vital Signs
Vital Signs
Temp Pulse Resp BP Pulse Ox
99.3 F 119 25 116/75 96
04/16/25 19:04 04/16/25 17:30 04/16/25 17:30 04/16/25 17:00 04/16/25 18:22
Physical Exam
General: Well Developed, Well Nourished and No Apparent Distress
HEENT: NormoCephalic, Anicteric, Moist mucous membranes and Atraumatic
Respiratory: Clear and Non Labored Respirations; No Wheezes, Rales or Rhonchi
Cardiac: S1/S2, Regular Rhythm and Tachycardia; No Murmur
GI: Soft, Non Tender, Non Distended and Normal Bowel Sounds
Rectal: Deferred by Provider
Genito-urinary: Stanford and Other (groin area excoriation )
Musculoskeletal: No Clubbing, No Cyanosis and No Edema
Skin: Warm, Dry and IV/Catheter Site
Neuro: Awake, Alert, Oriented (x2-3) and Nonfocal/grossly intact
Psych: Calm
Laboratory Results
-
04/16/25 16:14
04/16/25 16:14
Laboratory Results
Lactic Acid Cancelled 04/16/25 20:00
Total Bilirubin 1.9 mg/dl (0.2-1.3) H 04/16/25 16:14
AST 16 U/L (17-59) L 04/16/25 16:14
ALT 17 U/L (0-50) 04/16/25 16:14
Alkaline Phosphatase 66 U/L (38-126) 04/16/25 16:14
Data Reviewed
-
Medical Tests (Nuc Med, Echo, EKG etc): Report Reviewed by me (EKG: SINUS TACHYCARDIA LEFT ANTERIOR FASCICULAR BLOCK)
Lab Data: Labs Reviewed by me (WBC 11.6, Neut 92.9, HCO3 20, BUN 42, Creat 1.8 )
Impression/Plan
-
IMPRESSION/PLAN:
#change in mental status likely 2/2 catheter associated urinary tract infection
WBC 11.6, Neut 92.9, HCO3 20
UA: indicative of UTI
Urine Cx: pending
Blood Cx: pending
EKG: SINUS TACHYCARDIA
LEFT ANTERIOR FASCICULAR BLOCK
catheter changed in ED
- Admit to med/surg
- IVF LR 60cc/hr
- IV Ertapenem
- supportive care
- Consult ID
#CKD III
BUN 42, Creat 1.8
at patient baseline
- monitor BMP
#Bladder Cancer
s/p TURBT and induction gemcitabine/docetaxel (2022)
- follows with Dr. Nation and Dr. Redmond at [place]
- continue mirabegron, tamsulosin and tolterodine
#Peripheral Neuropathy
- continue gabapentin
#Paroxysmal Supraventricular Tachycardia
EKG: SINUS TACHYCARDIA
LEFT ANTERIOR FASCICULAR BLOCK
#Subarachnoid Hemorrhage
#Essential Hypertension
#Polycythemia Vera
Code status: full code
DVT prophylaxis: heparin sq
[2025-04-16] MEDS: MERREM 1000 MG IV (20:05)
--- NOTE | 2025-04-16 21:11 | W.PN.UPDATE ---
Update Note
Progress Note Update
I could not get any information from the patient as Spanish speaker
Information gathered by chart review and speaking with the ER staff.
This note serves as an addendum to the H&P by warehouse team member AMANDA Brittany Toney
HPI
79M only Spanish speaking male from [place] [facility] , HX frequent UTIs, chronic Martinez catheter, SHAR, hydronephrosis, urosepsis, HTN, HLD , recent admission from 02/05 to 02/11 due to complicated male UTI , acute urine retention, sepsis and acute on
chronic anemia. He was discharged back to the halfway on ertapenem 500 mg 100 mL/h IV every 24 hours for 10 days starting 02/11 till 02/21/25.
Other PMHX
Neurogenic bladder
HX transitional cell CA noninvasive
status post transurethral resection of bladder tumor
CKD3 with baseline creatinine around 2
polycythemia vera with splenomegaly
HX subarachnoid hemorrhage from a fall,
HX chr ambulatory dysfunction requiring walker
Relevant VS
PE
Gen: No acute distress
HEENT:moist OM
Neck: supple
Lungs: nonlabored, lungs clear.
Cor: RRR S1 S2
Abdomen: benign exam
: Martinez catheter intact, urine draining around the catheter, hypospadias
Psych: Quiet mood and affect but easily agitated and attempting to get out of bed.. Well kept, interactive and appropriate
Relevant Data
Last hospitalist admission: 02/05/2025 - 02/11/2025
DISCHARGE DIAGNOSES:
1. Complicated urinary tract infection.
2. Acute urinary retention.
3. Sepsis present on admission, currently resolved.
4. Acute on chronic anemia.
ASSESSMENT & PLAN
Pending Rx reconciliation
Sepsis due to CAUTI with AMS due to to multifactorial TME
- HX frequent UTI
- Underlying Neurogenic bladder with indwelling Martinez catheter.
- Prior CT AP ( january 2025 ) findings consistent with looks like chronic bilateral hydronephrosis.
- HX UTI with ESBL E. Coli
- Empiric IV ertapenem 500 mg 100 mL/h IV every 24 hours
- IpV LR 60/H
TME with restlessness and agitation
- 1 on 1 for safety
- Seroquel PRN
- Fall precaution
Stable CKD3b
base line Creatinine 2.6�2.1.
- trend daily BMP
HX transitional cell CA status post TURBT and intravesical chemotherapy
- Outpatient follow-up with urology.
Current Hgb seems from hemoconcentrated specimen
HX Chronic normocytic anemia
HX Iron deficiency. s/p IV Fe in last admission January 2025
- f/u Hgb in response to IVF
Polycythemia vera HX
- Noted with anemia and mild thrombocytopenia
- Splenomegaly likely related to myeloproliferative disorder
Ambulatory dysfunction: Multifactorial
- PT/OT
- Goal is back to [facility] on DC
DVT Px: SQH
Full code
IP TLM
[2025-04-16 22:32] VITALS: BMI 16.8
[2025-04-16] MEDS: LR 1000 IV (22:37)
[2025-04-16] MEDS: NEURONTIN 100 MG PO (22:59)
[2025-04-16] MEDS: FLOMAX 0.4 MG PO (22:59)
[2025-04-16] MEDS: HEPARIN 5000 UNITS SC (23:00)
[2025-04-16 23:54] VITALS: BP 131/77
--- NOTE | 2025-04-17 00:24 | PTCARENOTE ---
Pt admitted to 331 from ED. AAOx1-2, primarily Stateless speaking. 1:1 from ED arrived with patient to unit. Pt pulled over to inpatient bed from stretcher. Pt Assist x1-2, bedrest at this time. Martinez catheter draining yellow urine. Dried blood
noted at insertion site. Pt with blanchable redness to B/L elbow. Bed alarm in place and 1:1 remains at bedside.
--- NOTE | 2025-04-17 00:52 | PTCARENOTE ---
Martinez catheter noted to be draining bloody urine. Hui BOBO aware. Heparin SC held at this time.
[2025-04-17 03:42] VITALS: BP 118/72
[2025-04-17 05:58] LABS: Hematocrit 36.2 % (39.0-52.0); Hemoglobin 11.2 g/dL (13.0-18.0); Mean Corp Hgb Conc. 30.9 g/dL (33.0-37.0); Mean Corpuscular Volume 82.3 fL (80.0-94.0); Platelet Count 111 10^3/uL (130-400); Red Cell Dist. Width 17.8 % (11.5-14.5)
[2025-04-17 06:48] LABS: Blood Urea Nitrogen 40 mg/dl (9-20); Calcium 8.5 mg/dl (8.4-10.2); Carbon Dioxide 24 mmol/L (22-30); Chloride 110 mmol/L (98-107); Estimated Creatinine Clearance 26 ml/min; Glucose 99 mg/dl (70-99); Potassium 4.0 mmol/L (3.5-5.1); Sodium 140 mmol/L (135-145); eGFR 35.88
[2025-04-17 07:15] VITALS: BP 109/64
[2025-04-17] MEDS: DETROL LA 4 MG PO (07:24)
[2025-04-17] MEDS: LOW STRENGTH ASPIRIN 81 MG PO (07:25)
[2025-04-17] MEDS: MYRBETRIQ EXTENDED RELEASE 50 MG PO (07:25)
[2025-04-17] MEDS: PROTONIX 40 MG PO (07:25)
[2025-04-17] MEDS: MIRALAX 17 GRAMS PO (07:25)
[2025-04-17] MEDS: NEURONTIN 100 MG PO ×2 (07:25→21:10)
[2025-04-17] MEDS: INVANZ 55 MG IV (07:25)
[2025-04-17] MEDS: SENOKOT 8.6 MG PO (07:33)
[2025-04-17 11:00] VITALS: BP 110/68
[2025-04-17 11:47] VITALS: BMI 16.8
[2025-04-17] MEDS: LR 1000 IV (14:17)
--- NOTE | 2025-04-17 14:36 | W.PN.HOSP.TC ---
Today's Communication/Plan
-
Antibiotics per
Follow-up final cultures.
Maintain Martinez catheter
Assessment / Plan
Assessment / Plan
Impression:*
Catheter associated urinary tract infection.
Toxic metabolic encephalopathy secondary to UTI
Conditions prior to admission
Transitional cell carcinoma, noninvasive, status post transurethral resection of bladder tumor.
Chronic urinary retention requiring Martinez catheter.
Chronic bilateral hydronephrosis.
Chronic kidney disease stage III with baseline creatinine around 2
Polycythemia vera
Splenomegaly
History of fall with subarachnoid hemorrhage requiring admission at [facility]
Chronic ambulatory dysfunction requiring walker
prison visit
Plan
Catheter associated urine tract infection.
Recent hospitalization 02/05 - 02/11/2025 with catheter associated urinary infection urine culture positive for ESBL E. coli. Completed 10-day course of ertapenem
Recent imaging with CT
1. There is severe hydronephrosis and hydroureter bilaterally, left greater than right. Etiology is uncertain. There is no calculus or cause of obstruction.
2. There is a Martinez catheter in the bladder which is decompressed. A bladder mass cannot be excluded anteriorly.
3. The spleen is markedly enlarged.
Presenting from nursing facility with altered mental status, lethargy, tachycardia and low-grade fever.
Patient reports catheter exchanged 2 days prior to presentation
Remains hemodynamically stable
Urine culture pending
Given prior pathogens initiated on meropenem
Continue antibiotics pending final culture and sensitivity
Toxic metabolic encephalopathy improved with antibiotics and IV hydration
CKD stage III baseline creatinine around 2.
Creatinine at the baseline per
Martinez catheter in place
Continue monitor
Bladder Cancer
s/p TURBT and induction gemcitabine/docetaxel (2022)
- follows with Dr. Nation and Dr. Redmond at [place]
- continue mirabegron, tamsulosin and tolterodine
Peripheral Neuropathy
- continue gabapentin
Paroxysmal Supraventricular Tachycardia
EKG: SINUS TACHYCARDIA
LEFT ANTERIOR FASCICULAR BLOCK
Anticipated Discharge: 24 - 48 hours
Subjective/Interval History
-
Date of Service: April 17, 2025
Objective Data
-
Labs:
Laboratory Results
04/17/25
05:39
WBC 9.8
Hgb 11.2 L
Hct 36.2 L
Plt Count 111 L
Sodium 140
Potassium 4.0
Chloride 110 H
Carbon Dioxide 24
BUN 40 H
Creatinine 1.9 H
Glucose 99
Calcium 8.5
Vital Signs:
Vital Signs
Temp Pulse Resp BP Pulse Ox
98.4 F 108 12 110/68 95
04/17/25 11:00 04/17/25 11:00 04/17/25 11:00 04/17/25 11:00 04/17/25 11:00
I&O
04/16/25 04/17/25 04/18/25
06:59 06:59 06:59
Output Total 950 / 950 300 / 300
Balance -950 / -950 -300 / -300
Physical Exam
-
General: Well Developed and No Apparent Distress
HEENT: Normocephalic, Atraumatic and Moist Mucous Membranes
Respiratory: Clear to Auscultation
Cardiac: Regular Rhythm and S1/S2; Negative Murmur, Rub or Gallop
GI: Soft, Nontender, Nondistended and Normal Bowel Sounds; Negative Organomegaly
Rectal: Deferred by Provider
Genito-urinary: Martinez (Martinez catheter in place with cloudy urine)
Musculoskeletal: No Clubbing, No Cyanosis and No Edema
Skin: Negative Rash
Neuro: Nonfocal/Grossly Intact
[2025-04-17 15:45] VITALS: BP 111/60
--- NOTE | 2025-04-17 16:18 | CON.ID ---
Consultation
-
Date/Time Consultation Requested: 04/16/2025 2248
Date/Time Consultation Performed: 04/17/2025 1600
Requesting Provider: JERAMIE Mayfield
Performing Provider: Dr. Palafox
Reason for Consultation: Urinary tract infection
Chief Complaint / Past History
History of Present Illness
Patient is a 79-year-old Macanese-speaking male presenting from [facility] regarding change in mental status. Patient is known to the Infectious Disease service, having been seen in prior admissions for urinary retention and urinary
tract infections. He was last seen by me on February 10, 2025, at which time he was treated for a complicated urinary tract infection secondary to ESBL E. coli. He was transitioned back to his group home, to complete a 10-day course of ertapenem.
He presents back to the ER yesterday following the development of fever to 100.8 degrees and he was found to be tachycardic. Workup in the emergency room revealed an initial leukocytosis of 11.6. Urinalysis revealed significant pyuria. Patient
has been started on empiric antibiotics. Infectious Diseases is asked to comment on further antibiotic management.
Past History
Additional Past Medical History:
CKD
Urinary retention
Aortic insufficiency
HTN
PSVT
Polycythemia vera
Allergy History:
No Known Allergies Allergy (Verified 04/16/25 16:54)
Medications Reviewed: Yes
Current Antibiotics:
Ertapenem 500 mg IV every 24 hours
Social History
Tobacco: Non-Smoker
Alcohol: None
Employment: Not Employed
Family History
Family History: Not Pertinent
Review of Systems
Vital Signs
Temp Pulse Resp BP Pulse Ox
99.1 F 97 16 111/60 98
04/17/25 15:45 04/17/25 15:45 04/17/25 15:45 04/17/25 15:45 04/17/25 15:45
Physical Exam
Physical Exam
Constitutional: No Acute Distress, Comfortable and Non-toxic
Head: Normocephalic
Eyes: No Conjunctival Hemorrhage and Sclera Anicteric
Oral: No Thrush and No Ulcers
Cardiovascular: Regular Rate and S1/S2; Negative S3/S4
Pulmonary: Clear; Negative Wheezes or Rales
Gastrointestinal: Soft, Non Tender and Non Distended
Genito-Urinary: Martinez, Clear Urine and Other (Some sediment noted); Negative Turbid Urine or Hematuria
Skin: Warm and Dry; Negative Rash or Jaundice
Neurological: Awake and Alert
Psychological: Calm
Lab / Diagnostic Study Results
04/17/25 05:39
04/17/25 05:39
Abs Immat Gran (auto) 0.1 10^3/uL (0-0.05) H 04/16/25 16:14
Absolute Neuts (auto) 10.8 10^3/uL (1.4-6.5) H 04/16/25 16:14
Absolute Lymphs (auto) 0.4 10^3/uL (1.2-3.4) L 04/16/25 16:14
Absolute Monos (auto) 0.3 10^3/uL (0.1-0.6) 04/16/25 16:14
Absolute Basos (auto) 0.0 10^3/uL (0-0.2) 04/16/25 16:14
Immature Gran % 0.7 % (0-0.5) H 04/16/25 16:14
Neutrophils % 92.9 % (42.2-75.2) H 04/16/25 16:14
Lymphocytes % 3.1 % (20.5-51.1) L 04/16/25 16:14
Monocytes % 2.9 % (1.7-9.3) 04/16/25 16:14
Eosinophils % 0.3 % (0-6) 04/16/25 16:14
Basophils % 0.1 % (0-2) 04/16/25 16:14
Lactic Acid Cancelled 04/16/25 20:00
Ur Squamous Epith Cells 0-2 /LPF (Few) 04/16/25 16:14
Microbiology Results
Micro:
04/16/25 16:14 Urine Culture - Preliminary
Urine
04/17/25 03:26 MRSA Screen - Pending
Nose
04/16/25 16:14 Blood Culture - Pending
Blood/Venous
Imaging:
02/06/2025 CT head without contrast: No CT evidence for acute intracranial hemorrhage. Moderate diffuse cerebral and cerebellar volume loss. 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 Mild periventricular
white matter leukoaraiosis.
Assessment / Plan
Fever
Encephalopathy; suspect TME
Complicated urinary tract infection
Leukocytosis
CKD
Urinary retention
Aortic insufficiency
HTN
PSVT
Polycythemia vera
Recommendations:
Continue with empiric ertapenem given prior history of ESBL E. coli.
Monitor pending cultures (urine, blood, MRSA screen)
Follow white count and temperature curve.
Repeat blood cultures for temperature greater than 101 �F
Await further culture data to guide further antimicrobial selection and potential de-escalation.
Further recommendations as additional data is returned.
[2025-04-17 19:11] VITALS: BP 118/72
[2025-04-17] MEDS: FLOMAX 0.4 MG PO (21:11)
[2025-04-18 00:07] VITALS: BP 111/68
[2025-04-18 03:33] VITALS: BP 136/76
[2025-04-18 06:11] LABS: Hematocrit 35.7 % (39.0-52.0); Hemoglobin 11.2 g/dL (13.0-18.0); Mean Corp Hgb Conc. 31.4 g/dL (33.0-37.0); Mean Corpuscular Volume 81.1 fL (80.0-94.0); Nucleated Red Blood Cells % 0 % (-); Platelet Count 117 10^3/uL (130-400); Red Cell Dist. Width 17.8 % (11.5-14.5)
[2025-04-18 06:54] LABS: Blood Urea Nitrogen 46 mg/dl (9-20); Calcium 8.7 mg/dl (8.4-10.2); Carbon Dioxide 23 mmol/L (22-30); Chloride 112 mmol/L (98-107); Estimated Creatinine Clearance 29 ml/min; Glucose 137 mg/dl (70-99); Potassium 4.2 mmol/L (3.5-5.1); Sodium 139 mmol/L (135-145); eGFR 41.01
[2025-04-18 08:06] VITALS: BP 112/66
[2025-04-18] MEDS: SENOKOT 8.6 MG PO (09:03)
[2025-04-18] MEDS: PROTONIX 40 MG PO (09:03)
[2025-04-18] MEDS: NEURONTIN 100 MG PO (09:03)
[2025-04-18] MEDS: LOW STRENGTH ASPIRIN 81 MG PO (09:04)
[2025-04-18] MEDS: DETROL LA 4 MG PO (09:04)
[2025-04-18] MEDS: MYRBETRIQ EXTENDED RELEASE 50 MG PO (09:04)
[2025-04-18] MEDS: MIRALAX 17 GRAMS PO (09:05)
[2025-04-18] MEDS: INVANZ 55 MG IV (09:09)
--- NOTE | 2025-04-18 09:09 | PN.CDI ---
CDI
- -
CDI:
Physician Documentation Request
Admit Date: 04/16/25 21:11
Dear Doctor Franny,
Patient admitted for CAUTI.
Please review the following and provide your response in the progress notes.
Clinical Indicators:
Height: 6'
Weight: 124 lbs
BMI: 16.8
If possible, please provide an associated diagnosis related to the abnormal BMI, such as:
Cachectic
Underweight
BMI is not significant
Other
BMI < or = to 19.9
Underweight
Weight Loss
Cachectic
Anorexia
Use of terms such as suspected, likely, concern for, or probable (associated with a specific diagnosis that is being evaluated, monitored, or treated as if it exists) are acceptable and can be coded in the inpatient setting, when documented at the
time of discharge.
Thank you,
Georgina Rodriguez RN, BSN
CDI Specialist
Available via [place] text
Please use your independent medical judgment in providing your response.
[2025-04-18 11:00] VITALS: BP 121/78
--- NOTE | 2025-04-18 12:28 | W.PN.ID1 ---
Date of Service
Date of Service: April 18, 2025
Today's Communication
Discontinue antibiotics.
Assessment / Plan
Fever
Encephalopathy; suspect TME
Complicated urinary tract infection
Leukocytosis
CKD
Urinary retention
Aortic insufficiency
HTN
PSVT
Polycythemia vera
Recommendations:
Cultures reviewed. Blood culture without growth. Urine culture shows contamination. MRSA screen negative.
Prior leukocytosis has resolved. Patient remains afebrile and clinically stable.
Can discontinue further antibiotics at this time. Maintain good hydration.
Given presence of Martinez catheter, patient remains at risk of recurrence of infection.
Patient previously followed by Urology in mid January 2025. Notes reviewed. Severe hydronephrosis noted on prior CT imaging. Patient previously advised to pursue prompt follow-up with [facility]. Patient was advised regarding benefits of urinary
diversion.
Chief Complaint
-: UTI
Subjective / Review of Systems
Patient seen examined. No reported issues overnight.
Review of Systems: No Fever
Vital Signs / Physical Exam
Vital Signs
Vital Signs
Temp Pulse Resp BP Pulse Ox
97.8 F 100 16 121/78 99
04/18/25 11:00 04/18/25 11:00 04/18/25 11:00 04/18/25 11:00 04/18/25 09:00
Physical Exam
Constitutional: No Acute Distress, Comfortable, Chronically Ill and Non-toxic
Cardiovascular: S1/S2; Negative S3/S4
Pulmonary: Clear and Non Labored
Gastrointestinal: Soft, Non Distended and Normal Bowel Sounds
Genito-Urinary: Martinez and Clear Urine; Negative Turbid Urine or Hematuria
Psychological: Calm
Objective Data
Lab Data
Lab Results
04/18/25 05:50
04/18/25 05:50
Estimated Creat Clear 29 ml/min 04/18/25 05:50
Lactic Acid Cancelled 04/16/25 20:00
Total Bilirubin 1.9 mg/dl (0.2-1.3) H 04/16/25 16:14
AST 16 U/L (17-59) L 04/16/25 16:14
ALT 17 U/L (0-50) 04/16/25 16:14
Alkaline Phosphatase 66 U/L (38-126) 04/16/25 16:14
Most recent labs reviewed.
Micro Results:
04/17/25 03:26 MRSA Screen - Final
Nose No Methicillin Resistant Staphylococcus aureus isolated.
04/16/25 16:14 Urine Culture - Final
Urine
04/16/25 16:14 Blood Culture - Preliminary
Blood/Venous No Growth in 24 hours- Final report to follow
Imaging:
02/06/2025 CT head without contrast: No CT evidence for acute intracranial hemorrhage. Moderate diffuse cerebral and cerebellar volume loss. 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 Mild periventricular
white matter leukoaraiosis.
Care Review
Plan reviewed with: Physician (Hospitalist)
--- NOTE | 2025-04-18 13:52 | PTCARENOTE ---
patient French Speaking and has language barrier but able to speak limited Kiswahili. able to make needs known, appears comfortable, tolerating diet, bed alarm maintained, vss, will continue to monitor.
--- NOTE | 2025-04-18 14:44 | CM ---
Pt is cleared for discharge back to [facility] today. Call placed to pt's son, IMM reviewed and he gave verbal consent.
Son has requested transport back to [facility] via their van. Call placed to Liaison, Farooq, who will look into availability.
--- NOTE | 2025-04-18 14:49 | CM ---
Addendum entered by Regina Wallace 04/18/25 15:28:
Pt's son updated that [facility] van is not available. W/C van transport will be set up and billed to [facility] as discussed with
Addendum entered by Regina Wallace 04/18/25 15:25:
[facility] van is not available today. ALONDRA spoke with Farooq Silverman who spoke with her field administrator and they will accept the bill for w/c van transport.
Original Note:
Pt is cleared for discharge back to [facility] today. Call placed to pt's son to make him aware of discharge today.
Son has requested transport back to [facility] via their van. Call placed to Liaison, Farooq, who will look into availability.
[2025-04-18 15:00] VITALS: BP 137/82
--- NOTE | 2025-04-18 15:45 | CM ---
Pt is cleared for discharge to [facility] today. Ambulance transport requested.
Plan: Discharge to [facility] today via ambulance.
[2025-04-18 18:30] VITALS: BP 130/80
--- NOTE | 2025-04-25 09:43 | PN.CDI ---
CDI
- -
CDI:
Physician Documentation Request
Admit Date: 04/16/25 21:11
Dear Doctor Franny,
Patient admitted with a change in mental status.
ER Physician Documentation: 'Today fever of 100.8 and was tachycardic'
DC Summary: 'catheter-associated urinary tract infection, ruled out.'
Selected Entries
04/16/25
16:07 04/16/25
16:30 04/16/25
17:15
Pulse 128 128 121
Selected Entries
04/16/25
17:15 04/16/25
17:30
Resp Rate 20 25
Please clarify which most accurately describes the patient:
Sepsis
Systemic manifestations of infection, with 2 or more SIRS criteria which include:
Fever > 100.4 degrees F or hypothermia < 96.8 degrees F
Leukocytosis - WBC > 12,000 or leukopenia, WBC < 4,000 or > 10% bands
Tachycardia - > 90 beats per minute
Tachypnea - RR > 20 breaths per minute or PaCO2 < 32 mmHg
Source: Merck Manual 2013
Indicate the known or suspected organism
Indicate the known or suspected underlying infection, such as UTI, pneumonia or cellulitis
Indicate if a suspected bacterial infection of unknown source
Indicate if associated with an implanted device such as a F/C, PICC line, orthopedic hardware etc.
Indicate if there is associated organ dysfunction, such as renal or respiratory failure
SIRS due to a non-infectious source
Indicate the known or suspected etiology
Indicate if there is associated organ dysfunction, such as renal or respiratory failure
Other
Unable to determine
Use of terms such as suspected, likely, concern for, or probable (associated with a specific diagnosis that is being evaluated, monitored, or treated as if it exists) are acceptable and can be coded in the inpatient setting, when documented at the
time of discharge.
Thank you,
Georgina Rodriguez RN, BSN
CDI Specialist
Available via [place] text
Please use your independent medical judgment in providing your response.
== END 2025-04-18 19:20 | DRG 92 ==
LOC: 3 WEST ACU 21:11
PROVIDERS: Nurse Practitioner Family; ADMITTING PHYSICIAN Internal Medicine; ATTENDING PHYSICIAN Internal Medicine; CONSULT PHYSICIAN Internal Medicine Infectious Disease; EMERGENCY PHYSICIAN Emergency Medicine; FAMILY PHYSICIAN Internal Medicine
DX: G92.8 Other toxic encephalopathy (principal); D47.1 Chronic myeloproliferative disease; I47.19 Other supraventricular tachycardia; R64 Cachexia; Z68.1 Body mass index [BMI] 19.9 or less, adult; N13.30 Unspecified hydronephrosis; K21.9 Gastro-esophageal reflux disease without esophagitis; N31.9 Neuromuscular dysfunction of bladder, unspecified; D45 Polycythemia vera; N18.32 Chronic kidney disease, stage 3b; R16.1 Splenomegaly, not elsewhere classified; G62.9 Polyneuropathy, unspecified; R26.2 Difficulty in walking, not elsewhere classified; D64.9 Anemia, unspecified; E78.00 Pure hypercholesterolemia, unspecified; I35.1 Nonrheumatic aortic (valve) insufficiency; D69.6 Thrombocytopenia, unspecified; I12.9 Hypertensive chronic kidney disease with stage 1 through stage 4 chronic kidney disease, or unspecified chronic kidney disease; Z60.3 Acculturation difficulty; Z79.82 Long term (current) use of aspirin; Z85.51 Personal history of malignant neoplasm of bladder; Z87.440 Personal history of urinary (tract) infections; Z90.49 Acquired absence of other specified parts of digestive tract
CPT/HCPCS: 80048; 80053; 81003; 81015; 83605; 85025; 85027; 87040; 87070; 87086; 93005; 96374; 99285; J1335; J2185

== ENCOUNTER 2025-05-14 02:43 | Emergency (ER) | payer OTHER, SELFPAY ==
[2025-05-14 03:00] VITALS: BP 130/78
[2025-05-14 03:08] VITALS: BP 121/80
[2025-05-14 04:00] VITALS: BP 121/72
--- NOTE | 2025-05-14 04:56 | ED.GENMED ---
History of Present Illness
General
Chief Complaint: Catheter/Tube Problem
Source: patient
Time Seen by Provider: 05/14/25 03:36
Nursing documentation reviewed up to this point in time: agreed with
History of Present Illness
History of Present Illness:
Note:
CHIEF COMPLAINT(S)
Accidentally pulled out indwelling Martinez catheter.
HISTORY OF PRESENT ILLNESS
The patient is a 79-year-old male who presented to the emergency department after inadvertently pulling out his indwelling Martinez catheter. This incident occurred between 3 p.m. and 11 p.m. the previous evening when he was walking with a walker. Upon
arrival, the Martinez catheter was replaced without complications. The patient is currently asymptomatic. Post-replacement, the patient reported some leaking of urine. It is noted that he frequently experiences leakage around the catheter due to severe
hypospadias, as determined during the examination.
SOCIAL DETERMINANTS AFFECTING HEALTH
Information was obtained with the assistance of [employer] services.
REVIEW OF SYSTEMS
- Genitourinary: Accidental removal of Martinez catheter, urinary leakage post-catheter replacement, history of severe hypospadias.
PHYSICAL EXAM
General: Alert, no acute distress.
Skin: Warm, dry.
Head: Normocephalic, atraumatic.
Neck: Supple, trachea midline.
Eye, Ears, Nose, Mouth and Throat: Oral mucosa moist.
Cardiovascular: Normal peripheral perfusion, No edema.
Respiratory: Respirations are non-labored.
Gastrointestinal: Abdomen nondistended.
Back: Normal range of motion, Normal alignment.
Musculoskeletal: Normal range of motion, normal strength.
Neurological: Alert and oriented to person, place, time, and situation, No focal neurological deficit observed.
Psychiatric: Cooperative, appropriate mood & affect.
PROBLEM LIST
- Acute: Accidental removal of Martinez catheter
- Chronic: Severe hypospadias
PLAN
- Replaced Martinez catheter uneventfully.
- Patient education regarding catheter care and possible leackage due to known hypospadias.
DIFFERENTIAL DIAGNOSIS
The Differential Diagnosis includes, in no particular order and is not limited to:
1. Urethral Trauma
2. Bladder Outlet Obstruction
3. Urinary Tract Infection
4. Catheter-associated Leakage
5. Stricture Formation
6. Hypospadias Complications
7. Neurogenic Bladder
8. Incontinence from Leakage
9. Bladder Stones
10. Prostate Pathology
Disposition:
SUMMARY OF ENCOUNTER
The patient is a 79-year-old Tunisian-speaking male who presented to the emergency department after accidentally pulling out his indwelling Martinez catheter. Due to severe hypospadias, he frequently experiences urinary leakage around the catheter. The
catheter was replaced without complications during the visit. Translation services were used to assist in communication. The patient is currently asymptomatic except for the known postoperative leakage.
DISPOSITION
Patient was discharged back to [facility].
PLAN
- Martinez catheter successfully replaced.
- Patient advised on catheter care and expected leakage due to severe hypospadias.
PATIENT EDUCATION AND COUNSELING
The patient was educated about the care of the Martinez catheter and informed that leakage could continue due to the presence of hypospadias.
MEDICAL DECISION MAKING
- Number and Complexity of Problems Addressed: Chronic conditions affecting care include severe hypospadias. Differential diagnosis considerations: urethral trauma, bladder outlet obstruction, urinary tract infection, catheter-associated leakage,
stricture formation, hypospadias complications, neurogenic bladder, incontinence from leakage, bladder stones, prostate pathology.
- Data:
Category 2: The use of translation services for a Tunisian-speaking patient, enhancing communication for effective treatment planning.
Category 3: Discussion of management with translation services to ensure patient understanding and care coordination.
- Risk:
Care significantly affected by Social Determinants of Health: The patients first language is Tunisian, requiring translation services to facilitate effective communication during medical care.
DIAGNOSIS
- ICD-10 Code N39.0: Urinary tract infection, site not specified (related to potential complications and management of catheter use).
- ICD-10 Code N36.2: Stricture of urethra (consideration related to leakage and catheter issues secondary to hypospadias).
- ICD-10 Code Q54.9: Hypospadias, unspecified (existing chronic condition contributing to complications in catheter management).
Past History
Past History
ED Past Medical History: GERD, HTN, Hypercholesterolemia and Other (Frequent UTIs, Martinez catheter, ARF, hydronephrosis, urosepsis )
Social History
Tobacco: Non-smoker
Alcohol: None
Personal: Single
Living: [facility]
Phy Exam
Physical Exam
Physical Exam:
.
Genitourinary Exam Male
Exam Male: circumcised and other (Chronic meatal trauma well-healed)
Skin Exam
Skin Exam: normal color
Psychiatric Exam
Psychiatric Exam: normal mood/affect
Course
Orders/Labs/Results
Orders:
Orders
05/14/25 03:05
Lidocaine 2% [Lidocaine Uro-Jet 2%] 1 syringe .ROUTE .STK-MED ONE
Vital Signs
Initial and Last Documented VS:
Initial Vital Signs
Temp Pulse Resp BP Pulse Ox
98.4 F 93 20 130/78 95
05/14/25 03:00 05/14/25 03:00 05/14/25 03:00 05/14/25 03:00 05/14/25 03:00
Last Documented Vital Signs
Temp Pulse Resp BP Pulse Ox
98.4 F 92 20 121/72 99
05/14/25 03:07 05/14/25 04:48 05/14/25 04:48 05/14/25 04:00 05/14/25 04:58
*Pulse Oximetry
SaO2: 99
Oxygen Mode of Delivery: Room air
Patient hypoxic: no
*Critical Care Note
Total Time (30-74mins, 75-104mins- exclusive of procedures): Not Applicable
ED Attending Note
-
Portions of this chart may have been created with voice recognition software.� Occasional wrong word or��sound alike� substitutions may have occurred due to the inherent limitations of voice recognition software.
Discharge Plan
Departure
Patient Disposition: Senior Care/SNF
Date of Disposition: 05/14/25
Time of Disposition: 04:57
Patient with high blood pressure during this ER visit?: Yes
Discharge Problem:
Dislodged Martinez catheter
Instructions: How to Care for Your Martinez Catheter, Male, BLOOD PRESSURE
Prescriptions:
No Action
acetaminophen [Tylenol] 325 mg Tablet
650 mg PO Q6HPRN MDD 3000 mg PRN (Reason: mild pain/fever>100F)
polyethylene glycol 3350 17 gram Powder In Packet
17 g PO DAILY
tolterodine 4 mg Capsule,Extended Release 24hr
4 mg PO DAILY
tamsulosin 0.4 mg Capsule
0.4 mg PO HS
gabapentin 100 mg Capsule
100 mg PO Q12H
mirabegron 50 mg Tablet Extended Release 24 Hr
50 mg PO DAILY
magnesium hydroxide [Milk of Magnesia] 400 mg/5 mL Suspension
2,400 mg PO HSPRN PRN (Reason: if no BM x 3 days)
bisacodyl [Dulcolax (bisacodyl)] 10 mg Suppository
10 mg UT DAILYPRN PRN (Reason: if no BM after MOM)
aspirin 81 mg Tablet,Chewable
81 mg PO DAILY
sennosides [senna] 8.6 mg Tablet
8.6 mg PO DAILY
omeprazole 20 mg Capsule,Delayed Release(Dr/Ec)
20 mg PO DAILY
calcium carbonate 500 mg calcium (1,250 mg) Tablet,Chewable
500 mg PO DAILYPRN PRN (Reason: heartburn)
Referrals:
UNKNOWN - PT DOES,NOT KNOW [Family Provider]
Interventions
Interventions:
*Risk Screen - Suicide Last Done: 05/14/25 02:50
*General Assessment Last Done: 05/14/25 02:50
*Neglect/Abuse Screening Last Done: 05/14/25 02:50
*ED- Fall Risk Assessment Last Done: 05/14/25 02:50
*ED COVID-19 Vaccine History Last Done: 05/14/25 02:50
WB-Atrafp-[id number] Assessment Last Done: 05/14/25 02:50
ED-Male Genitourinary Assessment Last Done: 05/14/25 02:50
Discharge Date and Time
Print Language: ICELANDIC
[2025-05-14 05:00] VITALS: BP 126/88
== END 2025-05-14 05:41 ==
LOC: EMR 02:43
PROVIDERS: EMERGENCY PHYSICIAN Student in an Organized Health Care Education/Training Program
DX: T83.021A Displacement of indwelling urethral catheter, initial encounter (principal); N35.919 Unspecified urethral stricture, male, unspecified site; N39.0 Urinary tract infection, site not specified; E78.00 Pure hypercholesterolemia, unspecified; I10 Essential (primary) hypertension; Z87.440 Personal history of urinary (tract) infections
CPT/HCPCS: 99282; 51702

== ENCOUNTER 2025-05-14 19:09 | Inpatient (IN) | payer OTHER, SELFPAY ==
[2025-05-14] VITALS (7 sets, daily range): BP systolic 95–118; BP diastolic 56–72; BMI 21.5
--- NOTE | 2025-05-14 16:44 | ED.GENMED ---
History of Present Illness
General
Chief Complaint: Fever
Source: records
Exam Limitations: other
Time Seen by Provider: 05/14/25 16:31
History of Present Illness
History of Present Illness:
79-year-old male sent for fever. Had a Martinez replaced overnight. No other history available.
Past History
Past History
ED Past Medical History: GERD, HTN, Hypercholesterolemia and Other (Frequent UTIs, Martinez catheter, ARF, hydronephrosis, urosepsis )
Social History
Tobacco: Non-smoker
Alcohol: None
Personal: Single
[facility]: [facility]
Review of Systems
Review of Systems
All Other Systems: Not applicable
Phy Exam
Physical Exam
Physical Exam:
GENERAL: Alert. NAD.
EYE: Orbits normal.
NECK: Supple, no significant adenopathy.
ENT: Pharynx without erythema
CARDIAC: Tachycardic and regular no murmur
LUNGS: Clear breath sounds,normal
ABDOMEN: Soft, without focal tenderness or distention. No CVA tenderness
: Martinez in place. Functioning well. Hypospadias.
NEUROLOGICAL: Alert. Nonfocal
SKIN: Warm and dry, no rash or lesion, no discoloration, skin intact.
MUSCULOSKELETAL: No edema,no deformity.Good color
PSYCH: Normal and appropriate interaction.
Sepsis
Sepsis Screening
Sepsis Assessment: Sepsis
Sepsis Screening: Lactate >2mmol/L
Sepsis Screen
Sepsis Screen: Sepsis
Date: 05/14/25
Time: 18:21
Course
Orders/Labs/Results
Orders:
Orders
05/14/25 16:15
Electrocardiogram (*1) Urgent
Reason for Study: Chest Pain
Cardiac Monitoring- Treatment ONCE
05/14/25 16:16
EKG- Treatment ONCE
05/14/25 16:37
Complete Blood Count/With Diff Urgent
Comprehensive Metabolic Panel Urgent
Lactic Acid Urgent
Urinalysis Reflex To Culture Urgent
Date Specimen was Collected: 05/14/25
Time Specimen was Collected: 16:16
Urine Microscopic Reflex Cult Urgent
Blood Culture Urgent
BERNICE Source: Blood/Venous
Specimen Description:
Date Specimen was Collected: 05/14/25
Time Specimen was Collected: 16:16
Urine Culture Urgent
BERNICE Source: U
Specimen Description:
Date Specimen was Collected: 05/14/25
Time Specimen was Collected: 16:16
05/14/25 16:40
IV Insert/Care/Rem.- Treatment PRN
0.9% Sodium Chloride 1000 ml [Nss] 1,000 ml IV BOLUS
Cefepime HCl [Maxipime] 2,000 mg IV NOW STA
05/14/25 16:41
CXR Port [CR Chest Portable - 1 View] Urgent
Comment:
Reason For Exam: fever
Reason Study Needs to be Portable: Unable to Transport
05/14/25 17:19
COVID-19 Antigen Urgent
Source: Nasal Swab
Blood Culture Urgent
BERNICE Source: Blood/Venous
Specimen Description:
Date Specimen was Collected: 05/14/25
Time Specimen was Collected: 17:10
05/14/25 18:11
CT Abd/pel Without Iv Or Oral Urgent
Comment:
Reason For Exam: fever, UTI, prior hydro
05/14/25 20:40
Lactic Acid Urgent
Abnormal Lab Results
05/14/25
16:37
Hgb 12.6 L g/dL
(13.0-18.0)
MCH 25.2 L pg
(27.0-31.0)
MCHC 31.0 L g/dL
(33.0-37.0)
RDW 20.8 H %
(11.5-14.5)
Abs Immat Gran (auto) 0.1 H 10^3/uL
(0-0.05)
Absolute Neuts (auto) 8.2 H 10^3/uL
(1.4-6.5)
Absolute Lymphs (auto) 0.3 L 10^3/uL
(1.2-3.4)
Immature Gran % 0.7 H %
(0-0.5)
Neutrophils % 93.9 H %
(42.2-75.2)
Lymphocytes % 3.1 L %
(20.5-51.1)
Monocytes % 1.6 L %
(1.7-9.3)
Carbon Dioxide 20 L mmol/L
(22-30)
BUN 44 H mg/dl
(9-20)
Creatinine 1.8 H mg/dL
(0.7-1.3)
Glucose 176 H mg/dl
(70-99)
Lactic Acid 2.2 H mmol/L
(0.7-2.0)
ALT 62 H U/L
(0-50)
Ur Occult Blood Reflex 4+ A
(Negative)
Urine Nitrite (Reflex) Positive A
(Negative)
Leukocyte Esterase Rfl 3+ A
(Negative)
Urine RBC 11-15 A /HPF
(0-2)
Urine WBC (Reflex) >100 A /HPF
(0-5)
Urine Bacteria (Reflex) Many A
(Negative)
Urine Albumin (Reflex) 3+ A
(Neg - Trace)
05/14/25 16:37
05/14/25 16:37
Vital Signs
Initial and Last Documented VS:
Initial Vital Signs
Temp Pulse Resp BP Pulse Ox
103.5 F H 117 24 118/56 96
05/14/25 16:18 05/14/25 16:18 05/14/25 16:18 05/14/25 16:18 05/14/25 16:18
Last Documented Vital Signs
Temp Pulse Resp BP Pulse Ox
103.5 F H 101 20 107/65 98
05/14/25 16:18 05/14/25 18:00 05/14/25 18:00 05/14/25 18:00 05/14/25 18:00
MDM/Problems Addressed
Differential Diagnosis Includes:
Patient returns with high fever. Likely urinary source. Workup in progress. Will cover with antibiotics for urine. Son notified and updated.
*Radiology
Radiology exam reviewed: preliminary read by ED provider (Possible bibasilar pneumonia)
*Pulse Oximetry
SaO2: 96
Oxygen Mode of Delivery: Room air
Patient hypoxic: no
*Critical Care Note
Total Time (30-74mins, 75-104mins- exclusive of procedures): Not Applicable
ED Attending Note
-
Portions of this chart may have been created with voice recognition software.� Occasional wrong word or��sound alike� substitutions may have occurred due to the inherent limitations of voice recognition software.
Discharge Plan
Departure
Patient Disposition: Admit
Date of Disposition: 05/14/25
Time of Disposition: 17:40
Presentation/result/management discussed w/ accepting MD/DO: Hospitalist
Discharge Problem:
Suspect urosepsis, Possible pneumonia
Prescriptions:
No Action
acetaminophen [Tylenol] 325 mg Tablet
650 mg PO Q6HPRN PRN (Reason: mild pain/fever>100F)
polyethylene glycol 3350 17 gram Powder In Packet
17 g PO DAILY
tolterodine 4 mg Capsule,Extended Release 24hr
4 mg PO DAILY
tamsulosin 0.4 mg Capsule
0.4 mg PO HS
gabapentin 100 mg Capsule
100 mg PO Q12H
mirabegron 50 mg Tablet Extended Release 24 Hr
50 mg PO DAILY
magnesium hydroxide [Milk of Magnesia] 400 mg/5 mL Suspension
2,400 mg PO HSPRN PRN (Reason: if no BM x 3 days)
bisacodyl [Dulcolax (bisacodyl)] 10 mg Suppository
10 mg IN DAILYPRN PRN (Reason: if no BM after MOM)
aspirin 81 mg Tablet,Chewable
81 mg PO DAILY
sennosides [senna] 8.6 mg Tablet
8.6 mg PO DAILY
omeprazole 20 mg Capsule,Delayed Release(Dr/Ec)
20 mg PO BID
calcium carbonate 500 mg calcium (1,250 mg) Tablet,Chewable
500 mg PO DAILYPRN PRN (Reason: heartburn)
Referrals:
Kirill Borrero MD [Family Provider]
Interventions
Interventions:
*Risk Screen - Suicide Last Done: 05/14/25 16:18
*General Assessment Last Done: 05/14/25 16:18
*Neglect/Abuse Screening Last Done: 05/14/25 16:18
ED- Neurological Assessment Last Done: 05/14/25 17:32
ED-Skin Assessment Last Done: 05/14/25 17:32
Discharge Date and Time
Print Language: Filipino
[2025-05-14] MEDS: NSS 1000 IV ×2 (16:48→23:20)
[2025-05-14 16:49] LABS: Urine Character Slightly Cloudy (Clear)
[2025-05-14 16:56] LABS: Hematocrit 40.6 % (39.0-52.0); Hemoglobin 12.6 g/dL (13.0-18.0); Mean Corp Hgb Conc. 31.0 g/dL (33.0-37.0); Mean Corpuscular Volume 81.2 fL (80.0-94.0); Nucleated Red Blood Cells % 0 % (-); Platelet Count 147 10^3/uL (130-400); Red Cell Dist. Width 20.8 % (11.5-14.5)
[2025-05-14 16:58] LABS: Urine Squamous Cell 0-2 /LPF (Few); Urine White Cell >100 /HPF (0-5)
[2025-05-14 17:07] LABS: ALT (SGPT) 62 U/L (0-50); AST (SGOT) 29 U/L (17-59); Albumin 4.1 g/dl (3.5-5.0); Alkaline Phosphatase 70 U/L (38-126); Blood Urea Nitrogen 44 mg/dl (9-20); Calcium 8.5 mg/dl (8.4-10.2); Carbon Dioxide 20 mmol/L (22-30); Chloride 107 mmol/L (98-107); Glucose 176 mg/dl (70-99); Potassium 4.6 mmol/L (3.5-5.1); Sodium 138 mmol/L (135-145); Total Protein 6.6 g/dl (6.3-8.2); eGFR 38.29
--- NOTE | 2025-05-14 17:20 | EDRN ---
Blood Culture #2 drawn and sent at this time.
[2025-05-14] MEDS: MAXIPIME 2000 MG IV (17:25)
--- NOTE | 2025-05-14 17:34 | EDRN ---
Portable CXR done at stretcher side at this time.
[2025-05-14 17:48] LABS: COVID-19 Antigen Negative (Negative)
--- NOTE | 2025-05-14 17:56 | HPS.HSE ---
Addendum entered and electronically signed by Stuart Ann MD 05/14/25 18:43:
This is an addendum to H&P written by Marina Berger on 05/14/2025. �Patient seen and examined dependently with PA.
79-year-old Indian-speaking male past medical history of ESBL E. 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
hydronephrosis, CKD 3, polycythemia vera, splenomegaly, subarachnoid hemorrhage, chronic amatory dysfunction, paroxysmal SVT, presenting with fever from [facility].
Martinez was discharged yesterday and came to the ER and was replaced.
Fever 103.5. �Tachycardia.
Labs show stable creatinine of 1.8. �Lactic acid 2.2.
Chest x-ray shows bibasilar opacities likely atelectasis.
Patient with sepsis secondary to catheter associated UTI. �IV fluids, urine culture, blood cultures. �Meropenem given history of ESBL E. coli. �Patient with history of bilateral hydronephrosis for which he was recommended to follow-up with [facility] for
consideration of urinary diversion. �Given this history we will check CT abdomen pelvis to evaluate for pyelonephritis.
Original Note:
Family Physician
-
Family Physician: Kirill Borrero MD
Chief Complaint
-
Fever
History of Present Illness
Patient is a 79 y/o male past medical history of subarachnoid hemorrhage, chronic kidney disease, bilateral hydronephrosis secondary to neurogenic with chronic Martinez who presents with fever. Patient is Indian speaking and therefore unable to
provide any history. Patient's Martinez catheter became dislodged last night. He was sent from [facility] to [place] ED where the Martinez was replaced and he was sent back to [facility]. Shortly after returning to the PA patient spiked a
fevers 103F and he was sent back to the emergency department.
Medical History
Past Medical History
Past Medical History: Reports Other
Additional Past Medical History:
Subarachnoid Hemorrhage
Paroxysmal Supraventricular Tachycardia
Essential Hypertension
Bladder Cancer
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
Polycythemia Vera
Peripheral Neuropathy
Past Surgical History: Reports Other
Additional Past Surgical History:
Appendectomy
Cholecystectomy
Hernia Repair
TURBT
Social History
Tobacco: Non-smoker
Living: Long Term
Family History
Family History: Unable to Obtain
Allergies / Home Medications
Allergies reflects when Allergies were last updated in [facility].
Home Medications with original date entered in [facility]
Allergy/Medication List:
Allergies
Allergy/AdvReac Type Severity Reaction Status Date / Time
No Known Allergies Allergy Verified 05/14/25 16:18
Home Medications
acetaminophen 325 mg tablet (Tylenol) 650 mg PO Q6HPRN PRN mild pain/fever>100F 02/05/25
aspirin 81 mg chewable tablet 81 mg PO DAILY 02/05/25
bisacodyl 10 mg rectal suppository (Dulcolax (bisacodyl)) 10 mg DE DAILYPRN PRN if no BM after MOM 02/05/25
gabapentin 100 mg capsule 100 mg PO Q12H 02/05/25
magnesium hydroxide 400 mg/5 mL oral suspension (Milk of Magnesia) 2,400 mg PO HSPRN PRN if no BM x 3 days 02/05/25
mirabegron 50 mg tablet,extended release 24 hr 50 mg PO DAILY 02/05/25
polyethylene glycol 3350 17 gram oral powder packet 17 g PO DAILY 02/05/25
tamsulosin 0.4 mg capsule 0.4 mg PO HS 02/05/25
tolterodine 4 mg capsule,extended release 24 hr 4 mg PO DAILY 02/05/25
calcium carbonate 500 mg PO DAILYPRN PRN heartburn 04/16/25
omeprazole 20 mg capsule,delayed release 20 mg PO BID 04/16/25
sennosides 8.6 mg tablet (senna) 8.6 mg PO DAILY 04/16/25
Review of Systems
-
Unable to obtain full review of systems at this time due to: Language Barrier
Physical Exam
Vital Signs
Vital Signs
Temp Pulse Resp BP Pulse Ox
103.5 F H 103 19 107/61 98
05/14/25 16:18 05/14/25 17:15 05/14/25 17:15 05/14/25 17:00 05/14/25 17:15
Physical Exam
General: Well Developed, Well Nourished and No Apparent Distress
HEENT: Anicteric and Moist mucous membranes
Respiratory: Clear and Non Labored Respirations
Cardiac: S1/S2 and Regular Rhythm
GI: Soft and Non Tender
Rectal: Deferred by Provider
Genito-urinary: Martinez (Foul Smelling Urine)
Musculoskeletal: No Clubbing and No Cyanosis
Skin: Warm and Dry
Neuro: Awake, Alert and Nonfocal/grossly intact
Psych: Calm
Laboratory Results
-
05/14/25 16:37
05/14/25 16:37
Laboratory Results
Lactic Acid 2.2 mmol/L (0.7-2.0) H 05/14/25 16:37
Total Bilirubin 1.3 mg/dl (0.2-1.3) 05/14/25 16:37
AST 29 U/L (17-59) 05/14/25 16:37
ALT 62 U/L (0-50) H 05/14/25 16:37
Alkaline Phosphatase 70 U/L (38-126) 05/14/25 16:37
Data Reviewed
-
Lab Data: Labs Reviewed by me
Old Records: Reviewed
Impression/Plan
-
Sepsis secondary to Catheter-Associated Urinary Tract Infection
-Reviewed prior culture data with ESBL E. coli in January 2025
-Transition to Meropenem
-Check Abd/Pelvis CT scan in setting of known bilateral hydronephrosis
-Consider Urology Consult
CKD Stage III
-Creatinine at baseline
Polycythemia Vera
-Hold aspirin for now pending Urology consult
Hx Bladder Cancer s/p TURBT and induction gemcitabine/docetaxel (2022)
-Patient follows with Dr. Nation and Dr. Redmond at [place]
Hx Subarachnoid Hemorrhage - November 2024
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
DVT proph: SCDs
Code Status: Full Code
--- NOTE | 2025-05-14 18:00 | EDRN ---
Nahomy SCHOFIELD in to see pt.
--- NOTE | 2025-05-14 18:30 | EDRN ---
Dr. Ann in to see pt at this time.
[2025-05-14] MEDS: TYLENOL 650 MG PO (19:52)
--- NOTE | 2025-05-14 20:40 | EDRN ---
Lactic #2 drawn and sent at this time.
--- NOTE | 2025-05-14 21:06 | EDRN ---
Pt had BM on commode.
[2025-05-14] MEDS: NEURONTIN 100 MG PO (23:04)
[2025-05-14] MEDS: FLOMAX 0.4 MG PO (23:04)
[2025-05-14] MEDS: HEPARIN 5000 UNITS SC (23:04)
[2025-05-14] MEDS: MERREM 500 MG IV (23:05)
[2025-05-14] MEDS: STERILE WATER FOR INJECTION 10 ML IV (23:05)
[2025-05-15] VITALS (7 sets, daily range): BP systolic 93–117; BP diastolic 53–73
--- NOTE | 2025-05-15 00:30 | PTCARENOTE ---
Patient admitted to unit for sepsis. Patient is Czech speaking. Inspector And Mender Javier ([id number]) translated during admission.
[2025-05-15] MEDS: TYLENOL 650 MG PO (03:23)
[2025-05-15] MEDS: STERILE WATER FOR INJECTION 10 ML IV ×3 (05:41→21:05)
[2025-05-15] MEDS: MERREM 500 MG IV ×3 (05:41→21:05)
--- NOTE | 2025-05-15 07:54 | W.PN.HOSP.TC ---
Today's Communication/Plan
-
Urology consult
Pending urine culture
Assessment / Plan
Assessment / Plan
Impression:
79-year-old [place] Citizen-speaking male past medical history of ESBL E. 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
hydronephrosis, CKD 3, polycythemia vera, splenomegaly, subarachnoid hemorrhage, chronic amatory dysfunction, paroxysmal SVT, presenting with fever from [facility].
Assessment/plan:
Sepsis secondary to Catheter-Associated Urinary Tract Infection
-Reviewed prior culture data with ESBL E. coli in January 2025
- Started on meropenem
- Abdomen/pelvis CT scan shows: Evaluation of the organs of the abdomen, especially the kidneys MARKEDLY LIMITED without intravenous contrast.
At least moderate bilateral renal collecting system and ureteral dilatation seen without findings to confirm radiopaque calculus along the course of the distal ureters bilaterally. Mild bilateral perinephric stranding. Unfortunately, without
intravenous contrast, evaluation for pyelonephritis is extremely limited.
05/15
Reviewed the patient's chart at [facility] -patient supposed to be seen by urology on May 05. But he did not show up.
Consulted urology.
CKD Stage III
-Creatinine at baseline
Polycythemia Vera
-Hold aspirin for now pending Urology consult
Hx Bladder Cancer s/p TURBT and induction gemcitabine/docetaxel (2022)
-Patient follows with Dr. Nation and Dr. Redmond at [place]
Hx Subarachnoid Hemorrhage - November 2024
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
CODE STATUS: Full code
DVT prophylaxis:SCDs
Diet: Regular diet
Family communication: Patient requested not to speak to any family member
Disposition: Urolody consult.
Total time spent on today's encounter was 65 minutes which included time spent in counseling the patient/family regarding diagnosis and treatment plan as listed above, goals of care, and symptom management. Case was discussed with nursing staff,
specialists, and care coordinators/case management. All labs and imaging personally reviewed by me. Remainder the time spent in detailed review of previous records, lab data, imaging, and other medical provider documentation.
Anticipated Discharge: Within 24 hours
Subjective/Interval History
-
Date of Service: May 15, 2025
Patient seen and examined at bedside, denies any chest pain or shortness of breath, no abdominal pain, no nausea, no vomiting, no diarrhea or constipation.
Objective Data
-
Labs:
Laboratory Results
05/15/25
07:20
WBC Pending
Hgb Pending
Hct Pending
Plt Count Pending
Sodium Pending
Potassium Pending
Chloride Pending
Carbon Dioxide Pending
BUN Pending
Creatinine Pending
Glucose Pending
Calcium Pending
Vital Signs:
Vital Signs
Temp Pulse Resp BP Pulse Ox
101.3 F H 106 16 109/72 96
05/15/25 03:01 05/15/25 03:01 05/15/25 03:01 05/15/25 03:01 05/15/25 03:01
I&O
05/14/25 05/15/25 05/16/25
06:59 06:59 06:59
Intake Total 650 / 650
Output Total 650 / 650
Balance 0 / 0
Physical Exam
-
General: Well Developed, Well Nourished, No Apparent Distress and Comfortable
HEENT: Normocephalic, Atraumatic, Moist Mucous Membranes, No Ptosis, PERRLA and Nose Appears Normal
Respiratory: Clear to Auscultation and Non Labored Respirations
Cardiac: Regular Rhythm and S1/S2
Breast: Deferred by me
GI: Soft, Nontender, Nondistended and Normal Bowel Sounds
Genito-urinary: No Costovertebral Tender
Musculoskeletal: No Clubbing, No Cyanosis and No Edema
Skin: Warm
Neuro: Awake, Alert, Oriented, AO x 3 and No Motor Deficits
Psych: Calm
Data Reviewed
-
Diagnostic Radiology: Image personally visualized and interpreted and Report Reviewed by me
CT Scan: Image personally visualized and interpreted and Report Reviewed by me
Ultrasound: Image personally visualized and interpreted and Report Reviewed by me
MRI: Image personally visualized and interpreted and Report Reviewed by me
Medical Tests (Nuc Med, Echo etc): Image personally visualized and interpreted and Report Reviewed by me
Labs: Labs Reviewed by me
Old Records: Reviewed
[2025-05-15 08:33] LABS: Hematocrit 36.1 % (39.0-52.0); Hemoglobin 11.1 g/dL (13.0-18.0); Mean Corp Hgb Conc. 30.7 g/dL (33.0-37.0); Mean Corpuscular Volume 80.8 fL (80.0-94.0); Platelet Count 127 10^3/uL (130-400); Red Cell Dist. Width 20.1 % (11.5-14.5)
[2025-05-15 08:39] LABS: Blood Urea Nitrogen 42 mg/dl (9-20); Calcium 8.4 mg/dl (8.4-10.2); Carbon Dioxide 23 mmol/L (22-30); Chloride 110 mmol/L (98-107); Estimated Creatinine Clearance 30 ml/min; Glucose 95 mg/dl (70-99); Potassium 4.3 mmol/L (3.5-5.1); Sodium 140 mmol/L (135-145); eGFR 41.01
[2025-05-15] MEDS: HEPARIN 5000 UNITS SC ×2 (09:53→21:04)
[2025-05-15] MEDS: MYRBETRIQ EXTENDED RELEASE 50 MG PO (09:53)
[2025-05-15] MEDS: PROTONIX 40 MG PO ×2 (09:54→21:05)
[2025-05-15] MEDS: LOW STRENGTH ASPIRIN 81 MG PO (09:54)
[2025-05-15] MEDS: DETROL LA 4 MG PO (09:54)
[2025-05-15] MEDS: SENOKOT 8.6 MG PO (09:54)
[2025-05-15] MEDS: NEURONTIN 100 MG PO ×2 (09:54→21:05)
[2025-05-15] MEDS: MIRALAX 17 GRAMS PO (09:55)
--- NOTE | 2025-05-15 12:29 | CONS.URO ---
Consultation
-
Performing Provider: Chong
Medical History
History of Present Illness
Excerpt from Dr Marie' 2024 consultation: 'the
patient has been closely followed at [place] by Dr. Nation and
Ruy. The patient has a history of non muscle-invasive bladder
cancer and had undergone some type of intravesical chemotherapy
around 2022. I am unsure of when his last cystoscopy was performed.
He has been seeing Dr. Redmond for severe bladder dysfunction and
incontinence. Apparently, the patient had a urodynamic study at one
point that indicated a very high-pressure neurogenic low capacity
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
bilateral hydro that was causing renal insufficiency. He was
maintained on a regimen of Flomax, Myrbetriq and Detrol without
much improvement. Due to his combined history of bladder cancer,
reflux, incontinence, and now advancing renal insufficiency, it
appears that a urinary diversion was recommended, but the patient
declined. I am unsure of when his last followup was.
During his [facility] admission, Urology did recommend Martinez
placement. It does not appear that this provided any significant
improvement in his creatinine or hydronephrosis. [facility] in [facility]. In the interim, he has been
on IV antibiotic therapy for an ESBL UTI. '
sent from [facility] to ED yesterday afternoon: 'Patient's Martinez catheter became dislodged last night. He was sent from [facility] to [facility] ED where the Martinez was replaced and he was sent back to [facility]. [facility] spiked a fevers 103F and he was sent back to the emergency department. '
Allergies/Home Medications
Allergies
Allergy/AdvReac Type Severity Reaction Status Date / Time
No Known Allergies Allergy Verified 05/14/25 16:18
Home Medications
�Medication �Instructions �Recorded �Confirmed �Type
acetaminophen 325 mg tablet 650 mg PO Q6HPRN PRN mild 02/05/25 05/14/25 History
(Tylenol) pain/fever>100F
aspirin 81 mg chewable tablet 81 mg PO DAILY 02/05/25 05/14/25 History
bisacodyl 10 mg rectal suppository 10 mg [place] DAILYPRN PRN if no BM 02/05/25 05/14/25 History
(Dulcolax (bisacodyl)) after MOM
gabapentin 100 mg capsule 100 mg PO Q12H 02/05/25 05/14/25 History
magnesium hydroxide 400 mg/5 mL 2,400 mg PO HSPRN PRN if no BM x 3 02/05/25 05/14/25 History
oral suspension (Milk of Magnesia) days
mirabegron 50 mg tablet,extended 50 mg PO DAILY 02/05/25 05/14/25 History
release 24 hr
polyethylene glycol 3350 17 gram 17 g PO DAILY 02/05/25 05/14/25 History
oral powder packet
tamsulosin 0.4 mg capsule 0.4 mg PO HS 02/05/25 05/14/25 History
tolterodine 4 mg capsule,extended 4 mg PO DAILY 02/05/25 05/14/25 History
release 24 hr
calcium carbonate 500 mg PO DAILYPRN PRN heartburn 04/16/25 05/14/25 History
omeprazole 20 mg capsule,delayed 20 mg PO BID 04/16/25 05/14/25 History
release
sennosides 8.6 mg tablet (senna) 8.6 mg PO DAILY 04/16/25 05/14/25 History
Physical Exam
Vital Signs
Vital Signs
Temp Pulse Resp BP Pulse Ox
98.0 F 86 16 94/53 97
05/15/25 11:36 05/15/25 11:36 05/15/25 11:36 05/15/25 11:36 05/15/25 11:36
Lab / Testing Results
Laboratory Results
05/15/25 07:20
05/15/25 07:20
Physical Exam
elderly male
Genito-urinary: Martinez Catheter (draining urine)
Assessment / Plan
-
suspected CAUTI s/p transient dislodgment of chronic Martinez
chronic bilateral hydroureteronephrosis
Rec: tx UTI
Data Reviewed
-
CT Scan: Image personally visualized and interpreted (Bilateral Hydroureteronephrosis; Prostatomegaly; properly-positioned Martinez in bladder)
Lab Data: Labs Reviewed
Old Records: Reviewed
--- NOTE | 2025-05-15 15:14 | CM ---
CM reviewed chart, patient asleep bedside. Patient Puerto Rican speaking, call to patients son/primary contact, Yoshi [phone], to complete initial assessment. Per son, patient LTC resident of [facility], assisted with ADLs, ambulates with
walker. PCP Kirill Borrero, pharmacy [facility]. Son confirms patient will return to [facility] upon d/c. Referral placed in [facility], will confirm if auth is required for patient to return. CM will continue to follow for all discharge
planning needs.
Plan; return to [facility] when stable, will confirm if auth required
[2025-05-15] MEDS: NSS 1000 IV (15:36)
--- NOTE | 2025-05-15 16:08 | PTOTSP ---
The patient ambulated 580 feet in the hallway, with and without a walker, supervision level. The patient is at his functional baseline, therefore has no PT needs. PT will sign off at this time.
[2025-05-15] MEDS: FLOMAX 0.4 MG PO (21:05)
[2025-05-16] MEDS: MAALOX 30 ML PO (00:04)
--- NOTE | 2025-05-16 00:10 | PTCARENOTE ---
Communication via language line, pt continues to complain of heartburn even after taking PO protonix. [employer] contacted, electronic orders received for maalox and tums (refer to MAR) 20F Martinez catheter with large amount of leakage despite
large volume in bag. Balloon deflated and reinflated, urine passing in tubing and around catheter. Urine pale yellow, cloudy. Covidiens placed to keep skin dry, pericare completed. Call [place] w/in reach.
[2025-05-16 03:24] VITALS: BP 133/82
[2025-05-16] MEDS: NSS 1000 IV (04:28)
[2025-05-16 06:00] VITALS: BMI 21.7
[2025-05-16] MEDS: STERILE WATER FOR INJECTION 10 ML IV ×3 (06:19→21:31)
[2025-05-16] MEDS: MERREM 500 MG IV ×3 (06:19→21:31)
[2025-05-16 07:00] VITALS: BP 117/73
--- NOTE | 2025-05-16 07:32 | W.PN.URO.CBU ---
Today's Communication / Plan
-
abx per micro
pt to f/u with established urologist at [facility]
will sign off
Assessment / Plan
-
suspected CAUTI s/p transient dislodgment of chronic Martinez
chronic bilateral hydroureteronephrosis
Diagnosis
-
Date of Service: May 16, 2025
-
Patient Diagnosis:
E. coli CAUTI s/p transient dislodgment of chronic Martinez
chronic bilateral hydroureteronephrosis
Objective
-
Vital Signs
Temp Pulse Resp BP Pulse Ox
98.2 F 86 16 133/82 98
05/16/25 03:24 05/16/25 03:24 05/16/25 03:24 05/16/25 03:24 05/16/25 03:24
Intake and Output
05/15/25 05/16/25 05/17/25
06:59 06:59 06:59
Intake Total 650 / 650 840 / 840
Output Total 650 / 650 2600 / 2600
Balance 0 / 0 -1760 / -1760
Intake:
Oral fluids 840 / 840
IV fluids (Total) 640 / 640
IV piggybacks 10 / 10
Output:
Urine, Martinez 650 / 650 2600 / 2600
Other:
How many times incontinent 1
MODERATE amount urine
How many times incontinent 1 1
SATURATED amount urine
urine: E. coli
Physical Exam
-
General - well developed, well nourished, no acute distress
Chest - clear bilaterally
Abdomen - soft, non-tender, positive bowel sounds, no CVAT, no incisional pain or distention
Genitalia - normal
Rectal - normal
Skin - warm & dry with no rash
Neuro - AOx3, no motor deficits
Extremities - no clubbing, no cyanosis, no edema
Incision - clean, dry
Dressing - clean, dry, intact
[2025-05-16 07:39] LABS: Hematocrit 35.2 % (39.0-52.0); Hemoglobin 10.8 g/dL (13.0-18.0); Mean Corp Hgb Conc. 30.7 g/dL (33.0-37.0); Mean Corpuscular Volume 81.5 fL (80.0-94.0); Red Cell Dist. Width 19.9 % (11.5-14.5)
[2025-05-16 08:09] LABS: Blood Urea Nitrogen 40 mg/dl (9-20); Calcium 8.0 mg/dl (8.4-10.2); Carbon Dioxide 24 mmol/L (22-30); Chloride 111 mmol/L (98-107); Estimated Creatinine Clearance 28 ml/min; Glucose 77 mg/dl (70-99); Potassium 4.2 mmol/L (3.5-5.1); Sodium 141 mmol/L (135-145); eGFR 38.29
[2025-05-16] MEDS: LOW STRENGTH ASPIRIN 81 MG PO (08:17)
[2025-05-16] MEDS: PROTONIX 40 MG PO ×2 (08:17→20:23)
[2025-05-16] MEDS: MYRBETRIQ EXTENDED RELEASE 50 MG PO (08:17)
[2025-05-16] MEDS: HEPARIN 5000 UNITS SC ×2 (08:17→20:23)
[2025-05-16] MEDS: SENOKOT 8.6 MG PO (08:17)
[2025-05-16] MEDS: MIRALAX 17 GRAMS PO (08:18)
[2025-05-16] MEDS: DETROL LA 4 MG PO (08:18)
[2025-05-16 08:28] LABS: Platelet Count 119 10^3/uL (130-400)
--- NOTE | 2025-05-16 09:21 | PTOTSP ---
pt currently requires supervision to no assistance to complete simple ADLs, functional transfers, ambulation. pt reports no pain, no difficulty with functional tasks. no acute OT needs identified at this time, will sign off at this time.
--- NOTE | 2025-05-16 10:03 | W.PN.UPDATE ---
Update Note
Progress Note Update
Pt in chair eating.
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
[2025-05-16] MEDS: NEURONTIN 100 MG PO ×2 (10:11→20:23)
[2025-05-16 11:00] VITALS: BP 99/63
--- NOTE | 2025-05-16 14:28 | W.PN.HOSP.TC ---
Today's Communication/Plan
-
Infectious disease consult.
Continue meropenem
Assessment / Plan
Assessment / Plan
Impression:
79-year-old Canadian-speaking male past medical history of ESBL E. 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
hydronephrosis, CKD 3, polycythemia vera, splenomegaly, subarachnoid hemorrhage, chronic amatory dysfunction, paroxysmal SVT, presenting with fever from [facility].
Urine culture positive for ESBL, continue meropenem, infectious disease consult for further antibiotic management.
Assessment/plan:
Sepsis secondary to Catheter-Associated Urinary Tract Infection
-Reviewed prior culture data with ESBL E. coli in January 2025
- Started on meropenem
- Abdomen/pelvis CT scan shows: Evaluation of the organs of the abdomen, especially the kidneys MARKEDLY LIMITED without intravenous contrast.
At least moderate bilateral renal collecting system and ureteral dilatation seen without findings to confirm radiopaque calculus along the course of the distal ureters bilaterally. Mild bilateral perinephric stranding. Unfortunately, without
intravenous contrast, evaluation for pyelonephritis is extremely limited.
05/15
Reviewed the patient's chart at [facility] -patient supposed to be seen by urology on May 05. But he did not show up.
Consulted urology.
05/16
ESBL, continue meropenem, infectious disease consult
CKD Stage III
-Creatinine at baseline
Polycythemia Vera
-Hold aspirin for now pending Urology consult
Hx Bladder Cancer s/p TURBT and induction gemcitabine/docetaxel (2022)
-Patient follows with Dr. Nation and Dr. Redmond at [facility]
Hx Subarachnoid Hemorrhage - November 2024
-Patient is nursing home resident at [facility]
CODE STATUS: Full code
DVT prophylaxis:SCDs
Diet: Regular diet
Family communication: Patient requested not to speak to any family member
Disposition: Infectious disease consult
Total time spent on today's encounter was 65 minutes which included time spent in counseling the patient/family regarding diagnosis and treatment plan as listed above, goals of care, and symptom management. Case was discussed with nursing staff,
specialists, and care coordinators/case management. All labs and imaging personally reviewed by me. Remainder the time spent in detailed review of previous records, lab data, imaging, and other medical provider documentation.
Anticipated Discharge: Within 24 hours
Subjective/Interval History
-
Date of Service: May 16, 2025
Patient seen and examined at bedside, denies any chest pain or shortness of breath, no abdominal pain, no nausea, no vomiting, no diarrhea or constipation.
Urine culture positive for ESBL, ID consulted.
Objective Data
-
Labs:
Laboratory Results
05/16/25
06:48
WBC 8.1
Hgb 10.8 L
Hct 35.2 L
Plt Count 119 L
Sodium 141
Potassium 4.2
Chloride 111 H
Carbon Dioxide 24
BUN 40 H
Creatinine 1.8 H
Glucose 77
Calcium 8.0 L
Vital Signs:
Vital Signs
Temp Pulse Resp BP Pulse Ox
97.5 F 103 12 99/63 99
05/16/25 11:00 05/16/25 11:00 05/16/25 11:00 05/16/25 11:00 05/16/25 11:00
I&O
05/15/25 05/16/25 05/17/25
06:59 06:59 06:59
Intake Total 650 / 650 840 / 840
Output Total 650 / 650 2600 / 2600
Balance 0 / 0 -1760 / -1760
Physical Exam
-
General: Well Developed, Well Nourished, No Apparent Distress and Comfortable
HEENT: Normocephalic, Atraumatic, Moist Mucous Membranes, No Ptosis, PERRLA and Nose Appears Normal
Respiratory: Clear to Auscultation and Non Labored Respirations
Cardiac: Regular Rhythm and S1/S2
Breast: Deferred by me
GI: Soft, Nontender, Nondistended and Normal Bowel Sounds
Genito-urinary: No Costovertebral Tender
Musculoskeletal: No Clubbing, No Cyanosis and No Edema
Skin: Warm
Neuro: Awake, Alert, Oriented, AO x 3 and No Motor Deficits
Psych: Calm
Data Reviewed
-
Diagnostic Radiology: Image personally visualized and interpreted and Report Reviewed by me
CT Scan: Image personally visualized and interpreted and Report Reviewed by me
Ultrasound: Image personally visualized and interpreted and Report Reviewed by me
MRI: Image personally visualized and interpreted and Report Reviewed by me
Medical Tests (Nuc Med, Echo etc): Image personally visualized and interpreted and Report Reviewed by me
Labs: Labs Reviewed by me
Old Records: Reviewed
[2025-05-16 15:00] VITALS: BP 110/67
--- NOTE | 2025-05-16 16:01 | PTCARENOTE ---
Attending and urology notified [place] catheter continues to leak. pt denies pain, urine also noted in the drainage bag.
[2025-05-16 19:00] VITALS: BP 105/67
[2025-05-16] MEDS: FLOMAX 0.4 MG PO (20:23)
[2025-05-16 23:00] VITALS: BP 103/66
[2025-05-17 03:00] VITALS: BP 106/64
[2025-05-17] MEDS: STERILE WATER FOR INJECTION 10 ML IV (06:40)
[2025-05-17] MEDS: MERREM 500 MG IV (06:41)
[2025-05-17 07:00] VITALS: BP 119/67
[2025-05-17 08:51] LABS: Hematocrit 37.5 % (39.0-52.0); Hemoglobin 11.4 g/dL (13.0-18.0); Mean Corp Hgb Conc. 30.4 g/dL (33.0-37.0); Mean Corpuscular Volume 82.4 fL (80.0-94.0); Platelet Count 130 10^3/uL (130-400); Red Cell Dist. Width 20.0 % (11.5-14.5)
[2025-05-17 09:13] LABS: Blood Urea Nitrogen 35 mg/dl (9-20); Calcium 8.5 mg/dl (8.4-10.2); Carbon Dioxide 22 mmol/L (22-30); Chloride 110 mmol/L (98-107); Estimated Creatinine Clearance 32 ml/min; Glucose 109 mg/dl (70-99); Potassium 4.7 mmol/L (3.5-5.1); Sodium 139 mmol/L (135-145); eGFR 44.10
[2025-05-17] MEDS: LOW STRENGTH ASPIRIN 81 MG PO (09:24)
[2025-05-17] MEDS: NEURONTIN 100 MG PO ×2 (09:24→20:35)
[2025-05-17] MEDS: DETROL LA 4 MG PO (09:24)
[2025-05-17] MEDS: MYRBETRIQ EXTENDED RELEASE 50 MG PO (09:24)
[2025-05-17] MEDS: PROTONIX 40 MG PO ×2 (09:24→20:35)
[2025-05-17] MEDS: MIRALAX 17 GRAMS PO (09:25)
[2025-05-17] MEDS: HEPARIN 5000 UNITS SC ×2 (09:25→20:31)
[2025-05-17] MEDS: SENOKOT 8.6 MG PO (09:25)
[2025-05-17 11:00] VITALS: BP 101/66
--- NOTE | 2025-05-17 12:14 | CON.ID ---
Consultation
-
Date/Time Consultation Requested: 05/16/2025 1349
Date/Time Consultation Performed: 05/17/2025 1200
Requesting Provider: Dr. Adamson
Performing Provider: Dr. Palafox
Reason for Consultation: ESBL UTI
Chief Complaint / Past History
History of Present Illness
Nadege Leigh is a 79-year-old British-speaking male who is being seen in infectious disease consultation at the request of Dr. Adamson regarding ESBL UTI. History is obtained from chart review.
The patient presents to the ER at [facility] on 05/14 following inadvertently pulling on his Martinez catheter at the care facility where he resides. Upon arrival, the Martinez catheter was replaced without complication, and it was noted in the ER
that the patient was currently asymptomatic. A urine culture was obtained, which now reveals ESBL E. coli.
Patient was briefly febrile, but fevers have resolved. Blood cultures have remained negative.
Past History
Additional Past Medical History:
CKD stage III
Urinary retention; chronic Martinez catheter
Hx TCC of bladder
Aortic insufficiency
HTN
PSVT
Polycythemia vera
Chronic bilateral hydronephrosis
Allergy History:
No Known Allergies Allergy (Verified 05/14/25 16:18)
Medications Reviewed: Yes
Current Antibiotics:
Meropenem 500 mg IV q.8 hours
Social History
Tobacco: Non-Smoker
Alcohol: None
Employment: Not Employed
Family History
Family History: Not Pertinent
Review of Systems
Vital Signs
Temp Pulse Resp BP Pulse Ox
97.7 F 89 12 101/66 99
05/17/25 11:00 05/17/25 11:00 05/17/25 11:00 05/17/25 11:00 05/17/25 11:00
Physical Exam
Physical Exam
Constitutional: No Acute Distress, Comfortable, Chronically Ill and Non-toxic
Head: Normocephalic
Eyes: No Conjunctival Hemorrhage and Sclera Anicteric
Cardiovascular: Regular Rate and S1/S2; Negative S3/S4
Pulmonary: Clear and Non Labored; Negative Wheezes or Rales
Gastrointestinal: Soft, Non Tender and Non Distended
Genito-Urinary: Martinez and Clear Urine; Negative Turbid Urine or Hematuria
Extremities: Negative Edema
Skin: Warm and Dry; Negative Rash or Jaundice
Psychological: Calm
Lab / Diagnostic Study Results
05/17/25 08:31
05/17/25 08:31
Abs Immat Gran (auto) 0.1 10^3/uL (0-0.05) H 05/14/25 16:37
Absolute Neuts (auto) 8.2 10^3/uL (1.4-6.5) H 05/14/25 16:37
Absolute Lymphs (auto) 0.3 10^3/uL (1.2-3.4) L 05/14/25 16:37
Absolute Monos (auto) 0.1 10^3/uL (0.1-0.6) 05/14/25 16:37
Absolute Basos (auto) 0.0 10^3/uL (0-0.2) 05/14/25 16:37
Immature Gran % 0.7 % (0-0.5) H 05/14/25 16:37
Neutrophils % 93.9 % (42.2-75.2) H 05/14/25 16:37
Lymphocytes % 3.1 % (20.5-51.1) L 05/14/25 16:37
Monocytes % 1.6 % (1.7-9.3) L 05/14/25 16:37
Eosinophils % 0.6 % (0-6) 05/14/25 16:37
Basophils % 0.1 % (0-2) 05/14/25 16:37
Lactic Acid 1.1 mmol/L (0.7-2.0) 08/13/25 20:37
Ur Squamous Epith Cells 0-2 /LPF (Few) 05/14/25 16:37
Microbiology Results
Micro:
05/14/25 17:19 Blood Culture - Preliminary
Blood/Venous No Growth in 48 hours- Final report to follow
05/14/25 16:37 Blood Culture - Preliminary
Blood/Venous No Growth in 48 hours- Final report to follow
05/14/25 16:37 Urine Culture - Final
Urine Escherichia coli - ESBL
05/15/25 03:27 MRSA Screen - Final
Nose No Methicillin Resistant Staphylococcus aureus isolated.
Imaging:
05/15/2025 CT abdomen/pelvis without contrast: evaluation of abdominal organs markedly limited without IV contrast. There is moderate bilateral renal collecting system and ureteral dilatation, without findings to confirm radiopaque calculus. Mild
bilateral perinephric stranding although evaluation for pyelonephritis is extremely limited.
Assessment / Plan
S/p traumatic Martinez catheter removal; reinsertion in the ER.
Bacteriuria with ESBL E. coli
Fever
CKD stage III
Urinary retention; chronic Martinez catheter
Hx TCC of bladder
Aortic insufficiency
HTN
PSVT
Polycythemia vera
Chronic bilateral hydronephrosis
Recommendations:
Bacteriuria would not be uncommon with a chronic Martinez catheter, although given recent traumatic removal (and subsequent reinsertion) combined with noted fever at the time, would treat as if this were a complicated urinary tract infection. Although
CT imaging was abnormal, likelihood of pyelonephritis is somewhat lower given lack of leukocytosis.
Continue with antibiotic coverage, to complete a 10-day course.
Transition to once daily or ertapenem.
--- NOTE | 2025-05-17 12:52 | W.PN.HOSP.TC ---
Today's Communication/Plan
-
Discharge to SNF on IV Ertapenem.
Assessment / Plan
Assessment / Plan
Impression:
79-year-old Bahamian-speaking male past medical history of ESBL E. 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
hydronephrosis, CKD 3, polycythemia vera, splenomegaly, subarachnoid hemorrhage, chronic amatory dysfunction, paroxysmal SVT, presenting with fever from [facility].
Urine culture positive for ESBL, continue meropenem, infectious disease consult for further antibiotic management.
Assessment/plan:
Sepsis secondary to Catheter-Associated Urinary Tract Infection
-Reviewed prior culture data with ESBL E. coli in January 2025
- Started on meropenem
- Abdomen/pelvis CT scan shows: Evaluation of the organs of the abdomen, especially the kidneys MARKEDLY LIMITED without intravenous contrast.
At least moderate bilateral renal collecting system and ureteral dilatation seen without findings to confirm radiopaque calculus along the course of the distal ureters bilaterally. Mild bilateral perinephric stranding. Unfortunately, without
intravenous contrast, evaluation for pyelonephritis is extremely limited.
05/15
Reviewed the patient's chart at [facility] -patient supposed to be seen by urology on May 05. But he did not show up.
Consulted urology.
05/16
ESBL, continue meropenem, infectious disease consult.
05/17
Infectious disease recommending to continue IV antibiotic for total of 10 days
Patient will be discharged to SNF on IV antibiotic (ertapenem daily)
CKD Stage III
-Creatinine at baseline
Polycythemia Vera
-Hold aspirin for now pending Urology consult
Hx Bladder Cancer s/p TURBT and induction gemcitabine/docetaxel (2022)
-Patient follows with Dr. Nation and Dr. Redmond at [facility]
Hx Subarachnoid Hemorrhage - November 2024
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
CODE STATUS: Full code
DVT prophylaxis:SCDs
Diet: Regular diet
Family communication: Patient requested not to speak to any family member
Disposition: Discharge to SNF on IV Ertapenem.
Total time spent on today's encounter was 65 minutes which included time spent in counseling the patient/family regarding diagnosis and treatment plan as listed above, goals of care, and symptom management. Case was discussed with nursing staff,
specialists, and care coordinators/case management. All labs and imaging personally reviewed by me. Remainder the time spent in detailed review of previous records, lab data, imaging, and other medical provider documentation.
Anticipated Discharge: Today
Subjective/Interval History
-
Date of Service: May 17, 2025
Patient seen and examined at bedside, denies any chest pain or shortness of breath, no abdominal pain, no nausea, no vomiting, no diarrhea or constipation.
Urine culture positive for ESBL, ID consulted.
Objective Data
-
Labs:
Laboratory Results
05/17/25
08:31
WBC 8.3
Hgb 11.4 L
Hct 37.5 L
Plt Count 130
Sodium 139
Potassium 4.7
Chloride 110 H
Carbon Dioxide 22
BUN 35 H
Creatinine 1.6 H
Glucose 109 H
Calcium 8.5
Vital Signs:
Vital Signs
Temp Pulse Resp BP Pulse Ox
97.7 F 89 12 101/66 99
05/17/25 11:00 05/17/25 11:00 05/17/25 11:00 05/17/25 11:00 05/17/25 11:00
I&O
05/16/25 05/17/25 05/18/25
06:59 06:59 06:59
Intake Total 840 / 840 1655 / 1655
Output Total 2600 / 2600 700 / 700
Balance -1760 / -1760 955 / 955
Physical Exam
-
General: Well Developed, Well Nourished, No Apparent Distress and Comfortable
HEENT: Normocephalic, Atraumatic, Moist Mucous Membranes, No Ptosis, PERRLA and Nose Appears Normal
Respiratory: Clear to Auscultation and Non Labored Respirations
Cardiac: Regular Rhythm and S1/S2
Breast: Deferred by me
GI: Soft, Nontender, Nondistended and Normal Bowel Sounds
Genito-urinary: No Costovertebral Tender
Musculoskeletal: No Clubbing, No Cyanosis and No Edema
Skin: Warm
Neuro: Awake, Alert, Oriented, AO x 3 and No Motor Deficits
Psych: Calm
Data Reviewed
-
Diagnostic Radiology: Image personally visualized and interpreted and Report Reviewed by me
CT Scan: Image personally visualized and interpreted and Report Reviewed by me
Ultrasound: Image personally visualized and interpreted and Report Reviewed by me
MRI: Image personally visualized and interpreted and Report Reviewed by me
Medical Tests (Nuc Med, Echo etc): Image personally visualized and interpreted and Report Reviewed by me
Labs: Labs Reviewed by me
Old Records: Reviewed
[2025-05-17] MEDS: INVANZ 60 MG IV (14:41)
[2025-05-17 15:00] VITALS: BP 105/68
[2025-05-17 19:00] VITALS: BP 110/71
[2025-05-17] MEDS: FLOMAX 0.4 MG PO (20:36)
[2025-05-17 23:00] VITALS: BP 118/72
[2025-05-18 03:00] VITALS: BP 134/73
[2025-05-18 06:26] VITALS: BMI 21.0
[2025-05-18 08:26] VITALS: BP 102/63
[2025-05-18] MEDS: PROTONIX 40 MG PO ×2 (08:58→19:48)
[2025-05-18] MEDS: DETROL LA 4 MG PO (08:58)
[2025-05-18] MEDS: MIRALAX 17 GRAMS PO (08:59)
[2025-05-18] MEDS: LOW STRENGTH ASPIRIN 81 MG PO (08:59)
[2025-05-18] MEDS: HEPARIN 5000 UNITS SC ×2 (08:59→19:47)
[2025-05-18] MEDS: SENOKOT 8.6 MG PO (08:59)
[2025-05-18] MEDS: MYRBETRIQ EXTENDED RELEASE 50 MG PO (09:00)
[2025-05-18] MEDS: NEURONTIN 100 MG PO ×2 (09:02→21:04)
[2025-05-18 11:48] VITALS: BP 100/63
--- NOTE | 2025-05-18 13:17 | W.PN.ID1 ---
Date of Service
Date of Service: May 18, 2025
Today's Communication
Continue current course of ertapenem
Assessment / Plan
S/p traumatic Martinez catheter removal; reinsertion in the ER.
Bacteriuria with ESBL E. coli
Fever
CKD stage III
Urinary retention; chronic Martinez catheter
Hx TCC of bladder
Aortic insufficiency
HTN
PSVT
Polycythemia vera
Chronic bilateral hydronephrosis
Recommendations:
Bacteriuria would not be uncommon with a chronic Martinez catheter, although given recent traumatic removal (and subsequent reinsertion) combined with noted fever at the time, would treat as if this were a complicated urinary tract infection. Although
CT imaging was abnormal, likelihood of pyelonephritis is somewhat lower given lack of leukocytosis.
Continue with ertapenem to complete a 10-day course.
����������������������������������������������������������
Subjective / Review of Systems
Review of Systems: No Fever
Vital Signs / Physical Exam
Vital Signs
Vital Signs
Temp Pulse Resp BP Pulse Ox
97.8 F 90 16 100/63 97
05/18/25 11:48 05/18/25 11:48 05/18/25 11:48 05/18/25 11:48 05/18/25 11:48
Physical Exam
Constitutional: No Acute Distress, Chronically Ill and Non-toxic
Eyes: Sclera Anicteric
Pulmonary: Non Labored
Gastrointestinal: Non Distended
Neurological: Awake
Psychological: Calm
Objective Data
Lab Data
Lab Results
05/17/25 08:31
05/17/25 08:31
Estimated Creat Clear 32 ml/min 05/17/25 08:31
Lactic Acid 1.1 mmol/L (0.7-2.0) 05/14/25 20:37
Total Bilirubin 1.3 mg/dl (0.2-1.3) 05/14/25 16:37
AST 29 U/L (17-59) 05/14/25 16:37
ALT 62 U/L (0-50) H 05/14/25 16:37
Alkaline Phosphatase 70 U/L (38-126) 05/14/25 16:37
Most recent labs reviewed.
Micro Results:
05/14/25 17:19 Blood Culture - Preliminary
Blood/Venous No Growth in 72 hours- Final report to follow
05/14/25 16:37 Blood Culture - Preliminary
Blood/Venous No Growth in 72 hours- Final report to follow
05/14/25 16:37 Urine Culture - Final
Urine Escherichia coli - ESBL
05/15/25 03:27 MRSA Screen - Final
Nose No Methicillin Resistant Staphylococcus aureus isolated.
Imaging:
05/15/2025 CT abdomen/pelvis without contrast: evaluation of abdominal organs markedly limited without IV contrast. There is moderate bilateral renal collecting system and ureteral dilatation, without findings to confirm radiopaque calculus. Mild
bilateral perinephric stranding although evaluation for pyelonephritis is extremely limited.
--- NOTE | 2025-05-18 14:07 | W.PN.HOSP.TC ---
Today's Communication/Plan
-
Patient medically cleared for discharge on ertapenem for total 10 days, pending placement.
Assessment / Plan
Assessment / Plan
Impression:
79-year-old Egyptian-speaking male past medical history of ESBL E. 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
hydronephrosis, CKD 3, polycythemia vera, splenomegaly, subarachnoid hemorrhage, chronic amatory dysfunction, paroxysmal SVT, presenting with fever from [place].
Urine culture positive for ESBL, continue meropenem, infectious disease consult for further antibiotic management.
Recommendation to continue ertapenem for total of 10 days.
Assessment/plan:
Sepsis secondary to Catheter-Associated Urinary Tract Infection
-Reviewed prior culture data with ESBL E. coli in January 2025
- Started on meropenem
- Abdomen/pelvis CT scan shows: Evaluation of the organs of the abdomen, especially the kidneys MARKEDLY LIMITED without intravenous contrast.
At least moderate bilateral renal collecting system and ureteral dilatation seen without findings to confirm radiopaque calculus along the course of the distal ureters bilaterally. Mild bilateral perinephric stranding. Unfortunately, without
intravenous contrast, evaluation for pyelonephritis is extremely limited.
05/15
Reviewed the patient's chart at [facility] -patient supposed to be seen by urology on May 05. But he did not show up.
Consulted urology.
05/16
ESBL, continue meropenem, infectious disease consult.
05/17
Infectious disease recommending to continue IV antibiotic for total of 10 days
Patient will be discharged to [facility] on IV antibiotic (ertapenem daily)
05/18
Patient medically cleared for discharge on ertapenem for total 10 days, pending placement.
CKD Stage III
-Creatinine at baseline
Polycythemia Vera
-Hold aspirin for now pending Urology consult
Hx Bladder Cancer s/p TURBT and induction gemcitabine/docetaxel (2022)
-Patient follows with Dr. Nation and Dr. Redmond at [place]
Hx Subarachnoid Hemorrhage - November 2024
-Patient is rn long term care resident at [facility]
CODE STATUS: Full code
DVT prophylaxis:SCDs
Diet: Regular diet
Family communication: Patient requested not to speak to any family member
Disposition: Discharge to SNF on IV Ertapenem.
Total time spent on today's encounter was 65 minutes which included time spent in counseling the patient/family regarding diagnosis and treatment plan as listed above, goals of care, and symptom management. Case was discussed with nursing staff,
specialists, and care coordinators/case management. All labs and imaging personally reviewed by me. Remainder the time spent in detailed review of previous records, lab data, imaging, and other medical provider documentation.
Anticipated Discharge: Today
Subjective/Interval History
-
Date of Service: May 18, 2025
Patient seen and examined at bedside, denies any chest pain or shortness of breath, no abdominal pain, no nausea, no vomiting, no diarrhea or constipation.
Catheter changed.
Objective Data
-
Vital Signs:
Vital Signs
Temp Pulse Resp BP Pulse Ox
97.8 F 90 16 100/63 97
05/18/25 11:48 05/18/25 11:48 05/18/25 11:48 05/18/25 11:48 05/18/25 11:48
I&O
05/17/25 05/18/25 05/19/25
06:59 06:59 06:59
Intake Total 1655 / 1655 720 / 720
Output Total 700 / 700 1400 / 1400
Balance 955 / 955 -680 / -680
Physical Exam
-
General: Well Developed, Well Nourished, No Apparent Distress and Comfortable
HEENT: Normocephalic, Atraumatic, Moist Mucous Membranes, No Ptosis, PERRLA and Nose Appears Normal
Respiratory: Clear to Auscultation and Non Labored Respirations
Cardiac: Regular Rhythm and S1/S2
Breast: Deferred by me
GI: Soft, Nontender, Nondistended and Normal Bowel Sounds
Genito-urinary: No Costovertebral Tender
Musculoskeletal: No Clubbing, No Cyanosis and No Edema
Skin: Warm
Neuro: Awake, Alert, Oriented, AO x 3 and No Motor Deficits
Psych: Calm
[2025-05-18] MEDS: INVANZ 60 MG IV (14:40)
[2025-05-18 15:05] VITALS: BP 104/68
--- NOTE | 2025-05-18 17:49 | PTCARENOTE ---
Verbal order taken at [address] Vogel to replace stanford catheter due to continued leaking the last 2 days. 20F indwelling catheter inserted into side of penis without difficulty. Pt with prior trauma). Secured with new stat lock.
[2025-05-18] MEDS: FLOMAX 0.4 MG PO (21:04)
[2025-05-18 23:45] VITALS: BP 126/70
[2025-05-19 06:00] VITALS: BMI 20.8
[2025-05-19 07:10] VITALS: BP 105/67
[2025-05-19] MEDS: MIRALAX 17 GRAMS PO (08:01)
[2025-05-19] MEDS: DETROL LA 4 MG PO (08:01)
[2025-05-19] MEDS: LOW STRENGTH ASPIRIN 81 MG PO (08:01)
[2025-05-19] MEDS: PROTONIX 40 MG PO (08:01)
[2025-05-19] MEDS: SENOKOT 8.6 MG PO (08:01)
[2025-05-19] MEDS: HEPARIN 5000 UNITS SC (08:03)
[2025-05-19] MEDS: MYRBETRIQ EXTENDED RELEASE 50 MG PO (08:13)
[2025-05-19] MEDS: NEURONTIN 100 MG PO (11:03)
--- NOTE | 2025-05-19 12:16 | CM ---
CM reviewed chart, patient seen bedside, use of Romanian agricultural technician via language line. Patient for discharge back to [facility] today, facility to provide transport. Clinical updates provided via [facility], patient on IV antibiotics (Ertapenem)
for 10 day course, line information provided to [facility]. CM will continue to follow for all discharge planning needs.
Plan; return to [facility] LT, no auth required, facility to transport around 3:30 p.m.
[facility]:
Report: [phone]
[2025-05-19] MEDS: INVANZ 60 MG IV (13:16)
[2025-05-19] MEDS: CITROMA 300 ML PO (13:17)
--- NOTE | 2025-05-19 13:58 | W.PN.ID1 ---
Date of Service
Date of Service: May 19, 2025
Today's Communication
Continue current course of antibiotics.
Assessment / Plan
S/p traumatic Martinez catheter removal; reinsertion in the ER.
Bacteriuria with ESBL E. coli
Fever
CKD stage III
Urinary retention; chronic Martinez catheter
Hx TCC of bladder
Aortic insufficiency
HTN
PSVT
Polycythemia vera
Chronic bilateral hydronephrosis
Recommendations:
Bacteriuria would not be uncommon with a chronic Martinez catheter, although given recent traumatic removal (and subsequent reinsertion) combined with noted fever at the time, would treat as if this were a complicated urinary tract infection. Although
CT imaging was abnormal, likelihood of pyelonephritis is somewhat lower given lack of leukocytosis.
Continue with ertapenem to complete a 10-day course. (Through 05/23)
����������������������������������������������������������
Chief Complaint
-: UTI
Subjective / Review of Systems
Review of Systems: No Fever and No Chills
Vital Signs / Physical Exam
Vital Signs
Vital Signs
Temp Pulse Resp BP Pulse Ox
98.2 F 76 16 105/67 98
05/19/25 07:10 05/19/25 07:10 05/19/25 07:10 05/19/25 07:10 05/19/25 07:10
Physical Exam
Constitutional: No Acute Distress, Chronically Ill and Non-toxic
Eyes: Sclera Anicteric
Pulmonary: Non Labored
Gastrointestinal: Non Distended
Genito-Urinary: Martinez and Clear Urine; Negative Turbid Urine or Hematuria
Extremities: Negative Edema, Cyanosis or Erythema
Neurological: Awake
Psychological: Calm
Objective Data
Lab Data
Lab Results
05/17/25 08:31
05/17/25 08:31
Estimated Creat Clear 32 ml/min 05/17/25 08:31
Lactic Acid 1.1 mmol/L (0.7-2.0) 05/14/25 20:37
Total Bilirubin 1.3 mg/dl (0.2-1.3) 05/14/25 16:37
AST 29 U/L (17-59) 05/14/25 16:37
ALT 62 U/L (0-50) H 05/14/25 16:37
Alkaline Phosphatase 70 U/L (38-126) 05/14/25 16:37
Most recent labs reviewed.
Micro Results:
05/14/25 17:19 Blood Culture - Preliminary
Blood/Venous No Growth in 4 days- Final report to follow
05/14/25 16:37 Blood Culture - Preliminary
Blood/Venous No Growth in 4 days- Final report to follow
05/14/25 16:37 Urine Culture - Final
Urine Escherichia coli - ESBL
05/15/25 03:27 MRSA Screen - Final
Nose No Methicillin Resistant Staphylococcus aureus isolated.
Imaging:
05/15/2025 CT abdomen/pelvis without contrast: evaluation of abdominal organs markedly limited without IV contrast. There is moderate bilateral renal collecting system and ureteral dilatation, without findings to confirm radiopaque calculus. Mild
bilateral perinephric stranding although evaluation for pyelonephritis is extremely limited.
--- NOTE | 2025-05-19 14:24 | PTCARENOTE ---
salt lifter Johnathan [id number] used to communicate patient's needs. will continue to monitor.
--- NOTE | 2025-05-19 14:39 | W.PN.HOSP.TC ---
Today's Communication/Plan
-
Discharge to SNF today.
Assessment / Plan
Assessment / Plan
Impression:
79-year-old Kyrgyz-speaking male past medical history of ESBL E. 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
hydronephrosis, CKD 3, polycythemia vera, splenomegaly, subarachnoid hemorrhage, chronic amatory dysfunction, paroxysmal SVT, presenting with fever from [place].
Urine culture positive for ESBL, continue meropenem, infectious disease consult for further antibiotic management.
Recommendation to continue ertapenem for total of 10 days.
Assessment/plan:
Sepsis secondary to Catheter-Associated Urinary Tract Infection
-Reviewed prior culture data with ESBL E. coli in January 2025
- Started on meropenem
- Abdomen/pelvis CT scan shows: Evaluation of the organs of the abdomen, especially the kidneys MARKEDLY LIMITED without intravenous contrast.
At least moderate bilateral renal collecting system and ureteral dilatation seen without findings to confirm radiopaque calculus along the course of the distal ureters bilaterally. Mild bilateral perinephric stranding. Unfortunately, without
intravenous contrast, evaluation for pyelonephritis is extremely limited.
05/15
Reviewed the patient's chart at [facility] -patient supposed to be seen by urology on May 05. But he did not show up.
Consulted urology.
05/16
ESBL, continue meropenem, infectious disease consult.
05/17
Infectious disease recommending to continue IV antibiotic for total of 10 days
Patient will be discharged to SNF on IV antibiotic (ertapenem daily)
05/18
Patient medically cleared for discharge on ertapenem for total 10 days, pending placement.
CKD Stage III
-Creatinine at baseline
Polycythemia Vera
-Hold aspirin for now pending Urology consult
Hx Bladder Cancer s/p TURBT and induction gemcitabine/docetaxel (2022)
-Patient follows with Dr. Nation and Dr. Redmond at [place]
Hx Subarachnoid Hemorrhage - November 2024
-Patient is fci resident at [facility]
CODE STATUS: Full code
DVT prophylaxis:SCDs
Diet: Regular diet
Family communication: Patient requested not to speak to any family member
Disposition: Discharge to SNF on IV Ertapenem.
Total time spent on today's encounter was 65 minutes which included time spent in counseling the patient/family regarding diagnosis and treatment plan as listed above, goals of care, and symptom management. Case was discussed with nursing staff,
specialists, and care coordinators/case management. All labs and imaging personally reviewed by me. Remainder the time spent in detailed review of previous records, lab data, imaging, and other medical provider documentation.
Anticipated Discharge: Today
Subjective/Interval History
-
Date of Service: May 19, 2025
Patient seen and examined at bedside, denies any chest pain or shortness of breath, no abdominal pain, no nausea, no vomiting, no diarrhea or constipation.
Objective Data
-
Vital Signs:
Vital Signs
Temp Pulse Resp BP Pulse Ox
98.2 F 76 16 105/67 98
05/19/25 07:10 05/19/25 07:10 05/19/25 07:10 05/19/25 07:10 05/19/25 07:10
I&O
05/18/25 05/19/25 05/20/25
06:59 06:59 06:59
Intake Total 720 / 720 680 / 680
Output Total 1400 / 1400 2049
Balance -680 / -680 -1370 / -1370
Physical Exam
-
General: Well Developed, Well Nourished, No Apparent Distress and Comfortable
HEENT: Normocephalic, Atraumatic, Moist Mucous Membranes, No Ptosis, PERRLA and Nose Appears Normal
Respiratory: Clear to Auscultation and Non Labored Respirations
Cardiac: Regular Rhythm and S1/S2
Breast: Deferred by me
GI: Soft, Nontender, Nondistended and Normal Bowel Sounds
Genito-urinary: No Costovertebral Tender
Musculoskeletal: No Clubbing, No Cyanosis and No Edema
Skin: Warm
Neuro: Awake, Alert, Oriented, AO x 3 and No Motor Deficits
Psych: Calm
Data Reviewed
-
Diagnostic Radiology: Image personally visualized and interpreted and Report Reviewed by me
CT Scan: Image personally visualized and interpreted and Report Reviewed by me
Ultrasound: Image personally visualized and interpreted and Report Reviewed by me
MRI: Image personally visualized and interpreted and Report Reviewed by me
Medical Tests (Nuc Med, Echo etc): Image personally visualized and interpreted and Report Reviewed by me
Labs: Labs Reviewed by me
Old Records: Reviewed
--- NOTE | 2025-05-19 14:39 | W.DCSUMMARY ---
Discharge Summary
Discharge Data
Date of Admission: 05/14/25
Date of Discharge: 05/19/25
Total time spent discharging patient (in min): 40
-
Pending Results: No
Hospital Course
Hospital course
79-year-old Tanzanian-speaking male past medical history of ESBL E. 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
hydronephrosis, CKD 3, polycythemia vera, splenomegaly, subarachnoid hemorrhage, chronic amatory dysfunction, paroxysmal SVT, presenting with fever from [place].
Urine culture positive for ESBL, continue meropenem, infectious disease consult for further antibiotic management.
Recommendation to continue ertapenem for total of 10 days.
During hospitalization patient was treated from the following
Sepsis secondary to Catheter-Associated Urinary Tract Infection
-Reviewed prior culture data with ESBL E. coli in January 2025
- Started on meropenem
- Abdomen/pelvis CT scan shows: Evaluation of the organs of the abdomen, especially the kidneys MARKEDLY LIMITED without intravenous contrast.
At least moderate bilateral renal collecting system and ureteral dilatation seen without findings to confirm radiopaque calculus along the course of the distal ureters bilaterally. Mild bilateral perinephric stranding. Unfortunately, without
intravenous contrast, evaluation for pyelonephritis is extremely limited.
05/15
Reviewed the patient's chart at [facility] -patient supposed to be seen by urology on May 05. But he did not show up.
Consulted urology.
05/16
ESBL, continue meropenem, infectious disease consult.
05/17
Infectious disease recommending to continue IV antibiotic for total of 10 days
Patient will be discharged to SNF on IV antibiotic (ertapenem daily)
05/18
Patient medically cleared for discharge on ertapenem for total 10 days, pending placement.
CKD Stage III
-Creatinine at baseline
Polycythemia Vera
-Hold aspirin for now pending Urology consult
Hx Bladder Cancer s/p TURBT and induction gemcitabine/docetaxel (2022)
-Patient follows with Dr. Nation and Dr. Redmond at [place]
Hx Subarachnoid Hemorrhage - November 2024
-Patient is senior care resident at [facility]
CODE STATUS: Full code
DVT prophylaxis:SCDs
Diet: Regular diet
Family communication: Patient requested not to speak to any family member
Disposition: Discharge to SNF on IV Ertapenem.
Total time spent on today's encounter was 40 minutes which included time spent in counseling the patient/family regarding diagnosis and treatment plan as listed above, goals of care, and symptom management. Case was discussed with nursing staff,
specialists, and care coordinators/case management. All labs and imaging personally reviewed by me. Remainder the time spent in detailed review of previous records, lab data, imaging, and other medical provider documentation.
Anticipated Discharge: Today
Discharge Plan
-
Patient Disposition: Longterm/SNF
Discharge Diagnosis/Procedures: Sepsis secondary to Catheter-Associated Urinary Tract Infection.
ESBL UTI
Diet: As tolerated and Regular
Activity: As tolerated
Referrals:
Jaycob Redmond MD [Non-Admitting Privileges, Urology] - 06/11/25 2:20 pm
Kirill Borrero MD [Family Provider]
Prescriptions:
New
Ertapenem [Invanz] 1000 MG
0.9% Sodium Chloride [Nss] 50 ML
120 mls/hr IV Q24H
to be completed on Thursday 05/24
Ordered By: Alphonse Adamson MD
Last Taken: 05/18/25 14:40 60 mls
Continued
acetaminophen [Tylenol] 325 mg Tablet
650 mg PO Q6HPRN PRN (Reason: mild pain/fever>100F)
polyethylene glycol 3350 17 gram Powder In Packet
17 g PO DAILY
tolterodine 4 mg Capsule,Extended Release 24hr
4 mg PO DAILY
tamsulosin 0.4 mg Capsule
0.4 mg PO HS
gabapentin 100 mg Capsule
100 mg PO Q12H
mirabegron 50 mg Tablet Extended Release 24 Hr
50 mg PO DAILY
magnesium hydroxide [Milk of Magnesia] 400 mg/5 mL Suspension
2,400 mg PO HSPRN PRN (Reason: if no BM x 3 days)
bisacodyl [Dulcolax (bisacodyl)] 10 mg Suppository
10 mg ID DAILYPRN PRN (Reason: if no BM after MOM)
aspirin 81 mg Tablet,Chewable
81 mg PO DAILY
sennosides [senna] 8.6 mg Tablet
8.6 mg PO DAILY
omeprazole 20 mg Capsule,Delayed Release(Dr/Ec)
20 mg PO BID
calcium carbonate 500 mg calcium (1,250 mg) Tablet,Chewable
500 mg PO DAILYPRN PRN (Reason: heartburn)
Discharge Orders:
Discharge Patient (As Directed); Ordered 05/19/25
Ordered By: Alphonse Adamson
Discharge Date and Time
Print Language: Tanzanian
--- NOTE | 2025-05-19 15:24 | PTCARENOTE ---
report given to nurse Loyola at [facility]
[2025-05-19 15:50] VITALS: BP 113/76
== END 2025-05-19 16:56 | DRG 698 ==
LOC: 4 WEST ACU 19:09
PROVIDERS: Physician Assistant Medical; ADMITTING PHYSICIAN Hospitalist; ATTENDING PHYSICIAN General Practice; CONSULT PHYSICIAN Internal Medicine Infectious Disease; CONSULT PHYSICIAN Specialist; EMERGENCY PHYSICIAN Emergency Medicine; FAMILY PHYSICIAN Internal Medicine
DX: T83.511A Infection and inflammatory reaction due to indwelling urethral catheter, initial encounter (principal); A41.9 Sepsis, unspecified organism; I47.10 Supraventricular tachycardia, unspecified; N13.39 Other hydronephrosis; J98.11 Atelectasis; Z16.12 Extended spectrum beta lactamase (ESBL) resistance; N13.6 Pyonephrosis; Y84.6 Urinary catheterization as the cause of abnormal reaction of the patient, or of later complication, without mention of misadventure at the time of the procedure; Y73.2 Prosthetic and other implants, materials and accessory gastroenterology and urology devices associated with adverse incidents; N31.9 Neuromuscular dysfunction of bladder, unspecified; N18.30 Chronic kidney disease, stage 3 unspecified; I12.9 Hypertensive chronic kidney disease with stage 1 through stage 4 chronic kidney disease, or unspecified chronic kidney disease; I06.1 Rheumatic aortic insufficiency; D45 Polycythemia vera; G62.9 Polyneuropathy, unspecified; N39.0 Urinary tract infection, site not specified; L89.899 Pressure ulcer of other site, unspecified stage; Z11.52 Encounter for screening for COVID-19; Z85.51 Personal history of malignant neoplasm of bladder; Z79.899 Other long term (current) drug therapy; Z79.82 Long term (current) use of aspirin; Z75.1 Person awaiting admission to adequate facility elsewhere
CPT/HCPCS: 51702; 71045; 74176; 80048; 80053; 81003; 81015; 83605; 85025; 85027; 87040; 87070; 87077; 87086; 87186; 87811; 93005; 96374; 97161; 97167; 99282; 99285; J1335

== ENCOUNTER 2025-07-04 06:06 | Inpatient (IN) | payer OTHER, SELFPAY ==
[2025-07-04] VITALS (87 sets, daily range): BP systolic 70–108; BP diastolic 35–66; BMI 19.2
[2025-07-04] MEDS: TYLENOL/FEVERALL 650 MG RECTAL (03:12)
[2025-07-04] MEDS: NSS 1000 IV ×2 (03:13→07:18)
[2025-07-04] MEDS: NSS 500 IV ×2 (03:32→04:37)
[2025-07-04 03:42] LABS: Hematocrit 37.0 % (39.0-52.0); Hemoglobin 11.7 g/dL (13.0-18.0); Mean Corp Hgb Conc. 31.6 g/dL (33.0-37.0); Mean Corpuscular Volume 81.5 fL (80.0-94.0); Platelet Count 122 10^3/uL (130-400); Red Cell Dist. Width 22.1 % (11.5-14.5)
--- NOTE | 2025-07-04 03:43 | ED.GENMED ---
History of Present Illness
General
Chief Complaint: Male Genito-Urinary Symptoms
Source: patient, ambulance crew and correction
Exam Limitations: none
Time Seen by Provider: 07/04/25 03:11
Nursing documentation reviewed up to this point in time: agreed with
History of Present Illness
History of Present Illness:
Patient presents to ED from correction secondary to concern for continual bleeding noted inside the Martinez catheter, which was exchanged at this afternoon. Upon arrival, patient is found to be febrile and hypotensive. Otherwise, via language
pony ride operator, patient has no additional complaints. Denies headache. Denies chest pain. Denies shortness of breath. Denies coughing. Denies abdominal pain. Denies vomiting or diarrhea.
Past History
Past History
ED Past Medical History: GERD, HTN, Hypercholesterolemia and Other (Frequent UTIs, Martinez catheter, ARF, hydronephrosis, urosepsis )
Social History
Tobacco: Non-smoker
Alcohol: None
Personal: Single
Living: correction
Review of Systems
Review of Systems
Allergies reviewed?: Yes
All Other Systems: ROS reviewed and negative except as documented in HPI and ROS
Constitutional: Reports no symptoms
Respiratory: Reports no symptoms; Denies cough
Cardiac: Reports no symptoms
ABD/GI: Reports no symptoms; Denies abdominal pain, vomiting or diarrhea
: Reports bleeding
Musculoskeletal: Reports no symptoms
Skin: Reports no symptoms
Neurological: Reports no symptoms; Denies headache
Phy Exam
Physical Exam
Physical Exam:
Physical Exam
General: mild distress, not acutely ill. febrile. tachycardic.
Head: nc/at. eomi
Neck: supple. no meningeal signs
Heart: s1/s2 regular rate and rhythm
Lungs: no acute respiratory distress. clear bilaterally
Abdomen: normal bowel sounds. no distention. mild LLQ tenderness to palpation
Neuro: alert and oriented x 3. no focal neurological deficits
Skin: no rash
Psychiatric: well kept. interactive and cooperative
Extremities: no edema. no calf tenderness.
Sepsis
Sepsis Screening
Sepsis Assessment: Severe Sepsis
Sepsis Screening: Lactate >2mmol/L and Sustained Hypotension-SBP <90,MAP<65, or SBP decrease 40mmHg or more
Sepsis Screen
Sepsis Screen: Severe Sepsis
Date: 07/07/25
Time: 08:41
Course
Orders/Labs/Results
Orders:
Orders
07/04/25 03:10
Acetaminophen [Tylenol/Feverall] 650 mg .ROUTE .STK-MED ONE
07/04/25 03:11
Acetaminophen [Tylenol/Feverall] 650 mg RECTAL NOW STA
07/04/25 03:13
0.9% Sodium Chloride 1000 ml [Nss] 1,000 ml IV BOLUS
07/04/25 03:14
Electrocardiogram (*1) Urgent
Reason for Study: Other
Other Reason for Exam: Possible Sepsis
Cardiac Monitoring- Treatment ONCE
IV Insert/Care/Rem.- Treatment PRN
Pulse Ox/cont/shift [RESP] Urgent
Quantity: 1
Special Instructions: CONTINUOUS
07/04/25 03:15
EKG- Treatment ONCE
07/04/25 03:21
Complete Blood Count/With Diff Urgent
Comprehensive Metabolic Panel Urgent
Lactic Acid Q4H
Comment: ON ICE, CANCEL 2ND ORDER IF FIRST LACTIC ACID LEVEL <2
Manual Differential Urgent
Blood Culture Q20M
BERNICE Source: Blood/Venous
Specimen Description:
Comment: Urgent from separate sites. If patient screens positive for possible sepsis
07/04/25 03:26
0.9% Sodium Chloride 1000 ml [Nss] 1,000 ml IV BOLUS
0.9% Sodium Chloride 500 ml [Nss] 500 ml IV BOLUS
07/04/25 03:27
Meropenem [Merrem] 1,000 mg IV NOW STA
07/04/25 03:33
COVID-19 Antigen Urgent
Source: Nasal Swab
Urinalysis Reflex To Culture Urgent
Date Specimen was Collected: 07/04/25
Time Specimen was Collected: 03:31
Urine Microscopic Reflex Cult Urgent
Blood Culture Q20M
BERNICE Source: Blood/Venous
Specimen Description:
Comment: Urgent from separate sites. If patient screens positive for possible sepsis
Influenza A+B Rapid Molecular Urgent
BERNICE Source: Nasal Swab
Specimen Description:
Urine Culture Urgent
BERNICE Source: U
Specimen Description:
Date Specimen was Collected: 07/04/25
Time Specimen was Collected: 03:31
07/04/25 03:46
Ertapenem [Invanz] 1,000 mg 0.9% Sodium Chloride [Nss] 50 ml IV NOW
07/04/25 04:12
CT Abd/pel Without Iv Or Oral Urgent
Comment:
Reason For Exam: left flank pain
07/04/25 04:16
0.9% Sodium Chloride 500 ml [Nss] 500 ml IV BOLUS
07/04/25 04:30
NORepinephrine 4 MG/250 ML [Levophed] 4 mg in 250 ml IV PER PROTOCOL
Initial dose in mcg/min, then titrate:: 2
Titrate to keep:: SBP > 90 mmHg
Titrate by mcg/min:: 1-2 mcg/min
Frequency of titrations (minutes):: 5
Maximum dose in ICU in mcg/min:: 30
Maximum dose in IMU in mcg/min:: 8
Maximum dose in IVU in mcg/min:: 4
Begin to taper infusion when:: Remained at goal for 4hrs
Taper by mcg/min:: 1-2 mcg/min
Frequency of taper (minutes) if patient maintains goal:: 30
Taper to off?: Yes
If infusion off & no longer maintaining goal:: Contact Provider
07/04/25 04:37
Arterial Blood Gas Urgent
%Oxygen/Room Air: 94
07/04/25 05:53
Admit/Transfer Patient As Directed
Co-Sign Provider:
Level of Care: Inpatient admission
Assign to:: ICU
Physician / Group: Beto
Diagnosis: Sepsis, CAUTI
Reason for Hospitalization: Sepsis, CAUTI
Expected length of stay greater than two midnights?: Yes
ELOS- Estimated Length of Stay in days: 4
I certify the patient meets the requirements for IP care: Yes
PRN Pain Medication Management As Directed
May give lesser potent ordered pain med per pt: Yes
preference::
Protocol:: Medication orders for pain may be administered in a
manner that supports deferring to patient preference
when the pt is:
- Requesting an ordered lesser potent pain medication.
Least to most potent pain medications are defined
as: acetaminophen < NSAID < tramadol < opioids
(morphine, oxycodone, hydromorphone).
- Requesting a lesser dose of the same medication IF
ORDERED.
- Requesting a less intrusive route of administration
if both routes are prescribed by the provider (PO <
IV).
07/04/25 05:55
Code Status As Directed
Resuscitation Status: Full Code
07/04/25 05:59
Sterile Water [Sterile Water For Injection] 10 ml .ROUTE .STK-MED ONE
Sterile Water [Sterile Water For Injection] 20 ml .ROUTE .STK-MED
07/04/25 Breakfast
NPO
Allow oral meds: Yes
Allow clear liquids: Sips of Clears
07/04/25 06:53
0.9% Sodium Chloride 1000 ml [Nss] 1,000 ml IV 125 mls/hr
Acetaminophen [Tylenol] 650 mg PO Q4HPRN PRN
NORepinephrine 4 MG/250 ML [Levophed] 4 mg in 250 ml IV PER PROTOCOL
Currently infusing. Continue current dose and titrate:: Yes
Titrate to keep:: SBP > 90 mmHg
Titrate by mcg/min:: 1-2 mcg/min
Frequency of titrations (minutes):: 5
Maximum dose in ICU in mcg/min:: 30
Maximum dose in IMU in mcg/min:: 8
Maximum dose in IVU in mcg/min:: 4
Begin to taper infusion when:: Remained at goal for 4hrs
Taper by mcg/min:: 1-2 mcg/min
Frequency of taper (minutes) if patient maintains goal:: 30
Taper to off?: Yes
If infusion off & no longer maintaining goal:: Contact Provider
Polyethylene Glycol Powder [Miralax] 17 grams PO DAILYPRN PRN
07/04/25 06:53
Activity As Directed
Activity Level: Ambulate
With Assistance
EKG with chest pain [ECG as needed] As Directed
ECG as needed for:: Chest Pain
Martinez Catheter [Catheter- Indwelling] As Directed
Reason for insertion: Chronic Martinez on Admit
I/O [Intake/ Output] As Directed
Frequency: Per unit guidelines
Pneumatic Compression Sleeves As Directed
Type: Knee high
Vital Signs As Directed
Frequency: Per unit guidelines
Weight As Directed
Frequency: Daily
Oxygen Therapy [O2 Therapy] [RESP] Routine
Titrate/Wean O2 to maintain O2 sat greater than (%): 94
DX Deep Vein Thrombosis Video Routine
07/04/25 07:36
Lactic Acid Q4H
Comment: ON ICE, CANCEL 2ND ORDER IF FIRST LACTIC ACID LEVEL <2
07/04/25 08:00
Meropenem [Merrem] 500 mg IV Q12H
Tamsulosin [Flomax] 0.4 mg PO DAILY
07/04/25 22:00
Sennosides [Senokot] 17.2 mg PO HS
Abnormal Lab Results
07/04/25 07/04/25 07/04/25
03:21 03:33 04:37
WBC 54.5 H* 10^3/uL
(4.8-10.8)
RBC 4.54 L 10^6/uL
(4.70-6.10)
Hgb 11.7 L g/dL
(13.0-18.0)
Hct 37.0 L %
(39.0-52.0)
MCH 25.8 L pg
(27.0-31.0)
MCHC 31.6 L g/dL
(33.0-37.0)
RDW 22.1 H %
(11.5-14.5)
Plt Count 122 L 10^3/uL
(130-400)
Abs Neuts (Manual) 52.8 H 10^3/uL
(1.4-6.5)
Segmented Neutrophils 85 H %
(42-75)
Band Neutrophils 12 H %
(0-3)
Lymphocytes (Manual) 3 L %
(20-51)
pH 7.32 L
(7.35-7.45)
pCO2 22 L mmHg
(35-48)
pO2 79 L mmHg
(83-108)
HCO3 11.3 L* mmol/L
(21-28)
Chloride 115 H mmol/L
(98-107)
Carbon Dioxide 8 L* mmol/L
(22-30)
BUN 99 H mg/dl
(9-20)
Creatinine 3.0 H mg/dL
(0.7-1.3)
Glucose 139 H mg/dl
(70-99)
Lactic Acid 3.2 H mmol/L
(0.7-2.0)
Total Bilirubin 1.4 H mg/dl
(0.2-1.3)
AST 106 H U/L
(17-59)
ALT 117 H U/L
(0-50)
Urine Ketones 1+ A
(Negative)
Ur Occult Blood Reflex 4+ A
(Negative)
Leukocyte Esterase Rfl 2+ A
(Negative)
Urine RBC >100 A /HPF
(0-2)
Urine WBC (Reflex) >100 A /HPF
(0-5)
Urine Albumin (Reflex) 4+ A
(Neg - Trace)
07/04/25 03:21
07/04/25 03:21
Vital Signs
Initial and Last Documented VS:
Initial Vital Signs
Temp Pulse Resp BP Pulse Ox
101.1 F H 141 19 73/53 97
07/04/25 03:04 07/04/25 03:04 07/04/25 03:04 07/04/25 03:04 07/04/25 03:04
Last Documented Vital Signs
Temp Pulse Resp BP Pulse Ox
98.2 F 77 16 99/72 95
07/07/25 07:15 07/07/25 06:00 07/07/25 03:33 07/07/25 06:00 07/07/25 03:33
MDM/Problems Addressed
MDM/Problems Addressed:
Patient evaluated immediately upon arrival, secondary to significant hypotension with patient in febrile state. Patient started on IV fluid resuscitation along with Tylenol MN.
Blood work reviewed, significant for leukocytosis along with elevated lactate level, as well as acute on chronic renal failure.
History and exam concerning for severe sepsis, likely secondary to recurrent UTI. Based on patient's previous urine culture, patient given ertapenem IV.
Urine culture and blood culture pending.
In light of patient's persistent hypotension despite 2 L IV fluids, Levophed infusion will be started. Patient will be admitted to ICU for further evaluation and treatment.
CT abdomen pelvis ordered, to evaluate for potential obstructing stone, along with UTI.
CT abdomen pelvis report reviewed. Nursing staff to readjust Martinez catheter, as balloon of catheter appears to be within the urethra.
Critical care statement: A total of 40 minutes of critical care time was provided for this patient. This includes management of unstable vital signs, evaluation of the patient at bedside, reviewing the patient's pertinent medical records, review of
old EKGs and review of pertinent medical records. This time with separate from time utilized to perform the aforementioned documented procedures
*Pulse Oximetry
SaO2: 94
Oxygen Mode of Delivery: Room air
Patient hypoxic: no
*Critical Care Note
Total Time (30-74mins, 75-104mins- exclusive of procedures): 40 min
ED Attending Note
-
Portions of this chart may have been created with voice recognition software.� Occasional wrong word or��sound alike� substitutions may have occurred due to the inherent limitations of voice recognition software.
Discharge Plan
Departure
Patient Disposition: Admit
Date of Disposition: 07/04/25
Time of Disposition: 04:17
Admit to: ICU
Presentation/result/management discussed w/ accepting MD/DO: Hospitalist
Discharge Problem:
Severe sepsis, Acute UTI
Interventions
Interventions:
*General Assessment Last Done: 07/04/25 03:28
*Neglect/Abuse Screening Last Done: 07/04/25 03:26
*ED- Fall Risk Assessment Last Done: 07/04/25 03:28
*ED Influenza Vaccine History Last Done: 07/04/25 03:27
*Nursing Disposition Last Done: 07/04/25 07:01
ED-Male Genitourinary Assessment Last Done: 07/04/25 03:17
Discharge Date and Time
Discharge Date/Time: 07/04/25 07:02
[2025-07-04 03:54] LABS: Urine Character Bloody (Clear)
[2025-07-04 04:08] LABS: ALT (SGPT) 117 U/L (0-50); AST (SGOT) 106 U/L (17-59); Albumin 3.8 g/dl (3.5-5.0); Alkaline Phosphatase 102 U/L (38-126); Blood Urea Nitrogen 99 mg/dl (9-20); Calcium 9.0 mg/dl (8.4-10.2); Carbon Dioxide 8 mmol/L (22-30); Chloride 115 mmol/L (98-107); Estimated Creatinine Clearance 17 ml/min; Glucose 139 mg/dl (70-99); Potassium 4.4 mmol/L (3.5-5.1); Sodium 141 mmol/L (135-145); Total Protein 6.7 g/dl (6.3-8.2); eGFR 20.61
[2025-07-04 04:40] LABS: COVID-19 Antigen Negative (Negative)
--- NOTE | 2025-07-04 04:43 | PTCARENOTE ---
this RN contacted pharmacy for Invanz. pharmacy tubed medication and medication was placed in patient room by this RN. this RN went to get a pump to infuse medication and medication was nowhere to be found. pharmacy contacted for medication to be
remade.
[2025-07-04 04:51] LABS: B.E. -13.1 mmol/L; O2 Saturation % 97.6 % (94-98); O2 Therapy 94; PCO2 22 mmHg (35-48); PO2 79 mmHg (83-108)
[2025-07-04 04:52] LABS: HCO3 11.3 mmol/L (21-28)
[2025-07-04] MEDS: INVANZ 60 MG IV (05:06)
[2025-07-04 05:49] LABS: Urine Red Blood Cell >100 /HPF (0-2); Urine Squamous Cell 0-2 /LPF (Few); Urine White Cell >100 /HPF (0-5)
[2025-07-04] MEDS: LIDOCAINE URO-JET 2% 1 SYRINGE TOPICAL (06:00)
--- NOTE | 2025-07-04 06:58 | HPS.HSE ---
Family Physician
-
Family Physician: Kirill Borrero MD
Chief Complaint
-
Hematuria
History of Present Illness
Patient is a 80y M with PMH significant for subarachnoid hemorrhage, neurogenic bladder and chronic Martinez who presents to ED for evaluation of hematuria. Patient had Martinez changed yesterday and today was noted to have gross hematuria. He was
sent to the ED for evaluation where he was noted to be febrile to 101.1 and with marked leukocytosis. Patient offers no complaints and states that he feels the same as he usually does. He denies any abdominal pain, shaking chills, N/V, etc.
Medical History
Past Medical History
Past Medical History: Reports Other
Additional Past Medical History:
Subarachnoid Hemorrhage
Paroxysmal Supraventricular Tachycardia
Essential Hypertension
Bladder Cancer
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
Polycythemia Vera
Peripheral Neuropathy
Past Surgical History: Reports Other
Additional Past Surgical History:
Appendectomy
Cholecystectomy
Hernia Repair
TURBT
Social History
Tobacco: Non-smoker
Living: Jail
Family History
Family History: Unable to Obtain
Allergies / Home Medications
Allergies reflects when Allergies were last updated in [employer].
Home Medications with original date entered in [employer]
Allergy/Medication List:
Allergies
Allergy/AdvReac Type Severity Reaction Status Date / Time
No Known Allergies Allergy Verified 07/04/25 03:15
Home Medications
acetaminophen 325 mg tablet (Tylenol) 650 mg PO Q6HPRN PRN mild pain/fever>100F 02/05/25
aspirin 81 mg chewable tablet 81 mg PO DAILY 02/05/25
bisacodyl 10 mg rectal suppository (Dulcolax (bisacodyl)) 10 mg SC DAILYPRN PRN if no BM after MOM 02/05/25
gabapentin 100 mg capsule 100 mg PO Q12H 02/05/25
magnesium hydroxide 400 mg/5 mL oral suspension (Milk of Magnesia) 2,400 mg PO HSPRN PRN if no BM x 3 days 02/05/25
mirabegron 50 mg tablet,extended release 24 hr 50 mg PO DAILY 02/05/25
polyethylene glycol 3350 17 gram oral powder packet 17 g PO DAILY 02/05/25
tamsulosin 0.4 mg capsule 0.4 mg PO HS 02/05/25
tolterodine 4 mg capsule,extended release 24 hr 4 mg PO DAILY 02/05/25
calcium carbonate 500 mg PO DAILYPRN PRN heartburn 04/16/25
omeprazole 20 mg capsule,delayed release 20 mg PO BID 04/16/25
sennosides 8.6 mg tablet (senna) 8.6 mg PO DAILY 04/16/25
Ertapenem [Invanz] 1,000 mg 120 mls/hr IV Q24H 05/18/25
Review of Systems
-
History Source: Patient
A 12 point ROS was completed and negative except as noted: Yes
Constitutional: Denies Chills
Respiratory: Denies Cough or Trouble Breathing
Cardiac: Denies Chest Pain or Palpitations
Abdomen/GI: Denies Abdominal Pain, Nausea or Vomiting
: Denies Flank Pain
Neurological: Denies Dizzy or Headache
Psych: Denies Depression or Anxiety
Physical Exam
Vital Signs
Vital Signs
Temp Pulse Resp BP Pulse Ox
99.0 F 111 18 98/60 96
07/04/25 06:45 07/04/25 06:30 07/04/25 06:30 07/04/25 06:30 07/04/25 06:30
Physical Exam
General: Other (80y M in no distress.)
HEENT: Other (Dry MM. Neck supple.)
Respiratory: Clear; No Wheezes, Rales or Rhonchi
Cardiac: S1/S2, Regular Rhythm and Murmur (II/ JOHN)
GI: Soft, Non Tender, Non Distended and Normal Bowel Sounds
Genito-urinary: Other (ventral slit / erosion of penis. Scant blood at meatus. Martinez with grossly blood urine in bag - yellow urine in tubing.)
Musculoskeletal: No Clubbing, No Cyanosis and No Edema
Neuro: AO x 3
Laboratory Results
-
07/04/25 03:21
07/04/25 03:21
Laboratory Results
pH 7.32 (7.35-7.45) L 07/04/25 04:37
pCO2 22 mmHg (35-48) L 07/04/25 04:37
pO2 79 mmHg (83-108) L 07/04/25 04:37
HCO3 11.3 mmol/L (21-28) L* 07/04/25 04:37
Lactic Acid 3.2 mmol/L (0.7-2.0) H 07/04/25 03:21
Total Bilirubin 1.4 mg/dl (0.2-1.3) H 07/04/25 03:21
AST 106 U/L (17-59) H 07/04/25 03:21
ALT 117 U/L (0-50) H 07/04/25 03:21
Alkaline Phosphatase 102 U/L (38-126) 07/04/25 03:21
Impression/Plan
-
A/P: Patient is a 80y M with PMH significant for subarachnoid hemorrhage, neurogenic bladder and chronic indwelling Martinez catheter who presents to ED from local [facility] for evaluation of hematuria.
Malpositioned Martinez Catheter
Gross Hematuria secondary to the above
CAUTI secondary to the above
Septic Shock secondary to the above
- Admit to ICU for further evaluation and treatment.
- CT done in the ED today shows Martinez balloon in the urethra.
- Urethral trauma likely explains hematuria and resultant obstruction likely explains CAUTI.
- Martinez exchanged in the ED. Follow for clearance of hematuria.
- Hold antiplatelets / anticoagulants.
- IV abx for CAUTI pending culture data.
- IVFs +/- pressors to maintain BP / perfusion. Levophed initiated in the ED - wean off if able.
- Follow for improvement in BP, hematuria, etc.
- Urology consulted for further evaluation and recommendations.
SHAR on CKD III
- SCr = 3 compared to known baseline of 1.6.
- Likely secondary to obstruction as noted +/- ATN due to hypotension.
- Follow for improvement with Martinez re-positioning, IV abx, IVFs / pressors, etc.
Polycythemia Vera
- Marked leukocytosis - ? stress effect, sepsis, underlying hematologic process.
- Follow for significant / rapid improvement with above treatment.
- Consider Hematology evaluation if leukocytosis increases or does not improve.
- Platelets / HCT are unremarkable.
Abnormal LFTs
- ? secondary to hypoperfusion / hypotension.
- Follow for improvement in labs with adequate BP / perfusion.
- Monitor for any GI complaints / symptoms.
h/o SAH
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
- Patient oriented and answers questions / follows commands.
- No acute neurologic changes appreciated.
h/o Bladder Cancer
- s/p TURBT and chemotherapy (2022)
- Followed at [place].
- Local Urology consult as noted above.
DVT Prophylaxis: SCDs
Code Status: Full
[2025-07-04 07:06] LABS: Glucose - Point of Care 130 mg/dl (70-99)
--- NOTE | 2025-07-04 07:30 | PTCARENOTE ---
Received patient from ED, Indian speaking, can answer simple questions in Kyrgyz, A&Ox2, on RA, ST, BP at goal range, NPO w/ sips of clear, w/ Chronic Martinez which was exchanged in ED, noted small bloody drainage from Martinez catheter tip, Sacrum
blanchable redness, B/L Groin Fungal MASD.
--- NOTE | 2025-07-04 07:30 | CONS.URO ---
Consultation
-
Date/Time Consultation Requested: 07/04 600
Date/Time Consultation Performed: 07/04 700
Requesting Provider: Beto
Performing Provider: Lela
Reason for Consultation: dislodged/malpositioned catheter, cUTI, urosepsis
Medical History
History of Present Illness
80M (French-speaking) presents to [facility] ED w/ hematuria.
Martinez catheter changed yesterday (07/03) by staff @[facility] - noted to have gross hematuria.
Seen in ED - febrile to 101.1F w/ marked leukocytosis.
Patient denies abdominal/suprapubic pain.
CTAP w/o IV contrast in ED => catheter malpositioned w/ inflated balloon w/n urethra.
Martinez catheter could not be advanced, so it was exchanged w/ new catheter in ED w/o difficulty.
Per prior 01/2025 Urology consult note:
The patient has been closely followed at [facility] by Dr. Nation and
Ruy. The patient has a history of non muscle-invasive bladder
cancer and had undergone some type of intravesical chemotherapy
around 2022. I am unsure of when his last cystoscopy was performed.
He has been seeing Dr. Redmond for severe bladder dysfunction and
incontinence. Apparently, the patient had a urodynamic study at one
point that indicated a very high-pressure neurogenic low capacity
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
bilateral hydro that was causing renal insufficiency. He was
maintained on a regimen of Flomax, Myrbetriq and Detrol without
much improvement. Due to his combined history of bladder cancer,
reflux, incontinence, and now advancing renal insufficiency, it
appears that a urinary diversion was recommended, but the patient
declined. I am unsure of when his last followup was.
During his [place] admission, Urology did recommend Martinez
placement. It does not appear that this provided any significant
improvement in his creatinine or hydronephrosis. He was [facility]
to jail with this in place. In the interim, he has been
on IV antibiotic therapy for an ESBL UTI. '
Past Medical History
Past Medical History: HTN and Other (subarachnoid hemorrhage, paroxysmal supraventricular tachycardia, bladder cancer, chronic bilateral hydroureteronephrosis, bilateral VUR, neurogenic bladder, polycythemia vera, peripheral neuropathy)
Past Surgical History: Appendectomy, Cholecystectomy, Urological (TURBT) and Other (hernia repair)
Social History
Unable to obtain full social history at this time due to: Acuity and Language Barrier
Tobacco: Non-smoker
Living: [facility]
Family History
Family History: Reviewed & Not Pertinent
Allergies/Home Medications
Allergies
Allergy/AdvReac Type Severity Reaction Status Date / Time
No Known Allergies Allergy Verified 07/04/25 03:15
Home Medications
�Medication �Instructions �Recorded �Confirmed �Type
acetaminophen 325 mg tablet 650 mg PO Q6HPRN PRN mild 02/05/25 05/14/25 History
(Tylenol) pain/fever>100F
aspirin 81 mg chewable tablet 81 mg PO DAILY 02/05/25 05/14/25 History
bisacodyl 10 mg rectal suppository 10 mg HI DAILYPRN PRN if no BM 02/05/25 05/14/25 History
(Dulcolax (bisacodyl)) after MOM
gabapentin 100 mg capsule 100 mg PO Q12H 02/05/25 05/14/25 History
magnesium hydroxide 400 mg/5 mL 2,400 mg PO HSPRN PRN if no BM x 3 02/05/25 05/14/25 History
oral suspension (Milk of Magnesia) days
mirabegron 50 mg tablet,extended 50 mg PO DAILY 02/05/25 05/14/25 History
release 24 hr
polyethylene glycol 3350 17 gram 17 g PO DAILY 02/05/25 05/14/25 History
oral powder packet
tamsulosin 0.4 mg capsule 0.4 mg PO HS 02/05/25 05/14/25 History
tolterodine 4 mg capsule,extended 4 mg PO DAILY 02/05/25 05/14/25 History
release 24 hr
calcium carbonate 500 mg PO DAILYPRN PRN heartburn 04/16/25 05/14/25 History
omeprazole 20 mg capsule,delayed 20 mg PO BID 04/16/25 05/14/25 History
release
sennosides 8.6 mg tablet (senna) 8.6 mg PO DAILY 04/16/25 05/14/25 History
Ertapenem [Invanz] 1,000 mg 120 mls/hr IV Q24H 05/18/25 Rx
Review of Systems
-
Unable to obtain full review of systems at this time due to: Acuity and Language Barrier
History Source: Patient, [facility], Transfer Record and Physician
A 12 point Review of Systems was completed except as noted: Yes
Physical Exam
Vital Signs
Vital Signs
Temp Pulse Resp BP Pulse Ox
100.1 F 113 20 98/57 97
07/04/25 07:02 07/04/25 07:01 07/04/25 07:01 07/04/25 07:01 07/04/25 07:02
Lab / Testing Results
Laboratory Results
07/04/25 03:21
07/04/25 03:21
Physical Exam
General: No Apparent Distress and Comfortable
HEENT: Normocephalic and Anicteric
Respiratory: Non Labored Respirations
Cardiac: S1/S2
Breast: N/A
GI: Soft, Non Tender and Non Distended
Rectal: Deferred by Provider
Genito-urinary: Turbid Urine and Martinez Catheter
Musculoskeletal: No Edema
Skin: Warm and Dry
Neuro: Awake, No Motor Deficits and Nonfocal/Grossly Intact
Hematologic/Lymphatic: No Lymphadenopathy
Psych: Calm and Confused
Assessment / Plan
-
Malpositioned Martinez catheter
Urosepsis
SHAR on CKD
Chronic urinary retention
H/o chronic bilateral hydroureteronephrosis
H/o bilateral VUR
H/o high-pressure low capacity neurogenic bladder
exam: chronic ventral erosion, Martinez catheter draining purulent urine w/o hematuria.
- IV Meropenem for h/o ESBL E. Coli - pending Cx data
- Maintain Martinez catheter to drainage
- Trend Cr after catheter exchange
- OK to resume ASA
- No indication for urologic intervention
- F/U w/ [facility] for continuation of care
D/w Hospitalist.
Data Reviewed
-
Total Time Spent with Patient (in minutes): 25
CT Scan: Image personally visualized and interpreted, Report Reviewed by Me and Discussed with Physician
Lab Data: Labs Reviewed, Discussed with Physician and Discussed with Patient
Old Records: Reviewed
[2025-07-04] MEDS: MERREM 500 MG IV ×2 (08:02→20:27)
[2025-07-04] MEDS: STERILE WATER FOR INJECTION 10 ML IV ×2 (08:02→20:27)
[2025-07-04] MEDS: FLOMAX 0.4 MG PO (08:02)
--- NOTE | 2025-07-04 08:04 | CON.INTV ---
Consultation
Consultation Request
Date/Time Consultation Requested: 07/04/2025
Date/Time Consultation Performed: 07/04/2025
Medical History
-
Chief Complaint: Hematuria
History of Present Illness:
Patient is a 80-year-old gentleman with a history of subarachnoid hemorrhage, subsequent neurogenic bladder, chronic Martinez catheter dependent. He presented to emergency room with hematuria. Patient reportedly had recent Martinez exchange and has
hematuria since. Patient was noted to be febrile with elevated WBC count and borderline low pressure in the emergency room. Patient was fluid resuscitated, started on broad-spectrum antibiotics. Martinez catheter was noted to be malpositioned and
replaced. Urology service was also consulted. Patient also noted to have acute kidney injury, elevated lactate as well as metabolic acidosis. Patient was admitted to the ICU and extrusion die repair manager consultation was requested for further input.
Past Medical History
Past Medical History: Reports Other
Additional Past Medical History:
Subarachnoid Hemorrhage
Paroxysmal Supraventricular Tachycardia
Essential Hypertension
Bladder Cancer
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
Polycythemia Vera
Peripheral Neuropathy
Past Surgical History: Reports Other
Additional Past Surgical History:
Appendectomy
Cholecystectomy
Hernia Repair
TURBT
Social History
Tobacco: Non-smoker
Living: Intermediate
Family History
Family History: Unable to Obtain
Allergies / Home Medications
Allergies / Home Medications
Allergies
Allergy/AdvReac Type Severity Reaction Status Date / Time
No Known Allergies Allergy Verified 07/04/25 03:15
Home Medications
�Medication �Instructions �Recorded �Confirmed �Last Taken �Type
acetaminophen 325 mg tablet 650 mg PO Q6HPRN PRN mild 02/05/25 05/14/25 04/28/25 History
(Tylenol) pain/fever>100F
aspirin 81 mg chewable tablet 81 mg PO DAILY 02/05/25 05/14/25 05/14/25 History
bisacodyl 10 mg rectal suppository 10 mg [place] DAILYPRN PRN if no BM 02/05/25 05/14/25 03/16/25 History
(Dulcolax (bisacodyl)) after MOM
gabapentin 100 mg capsule 100 mg PO Q12H 02/05/25 05/14/25 05/14/25 History
magnesium hydroxide 400 mg/5 mL 2,400 mg PO HSPRN PRN if no BM x 3 02/05/25 05/14/25 03/16/25 History
oral suspension (Milk of Magnesia) days
mirabegron 50 mg tablet,extended 50 mg PO DAILY 02/05/25 05/14/25 05/14/25 History
release 24 hr
polyethylene glycol 3350 17 gram 17 g PO DAILY 02/05/25 05/14/25 05/14/25 History
oral powder packet
tamsulosin 0.4 mg capsule 0.4 mg PO HS 02/05/25 05/14/25 05/13/25 History
tolterodine 4 mg capsule,extended 4 mg PO DAILY 02/05/25 05/14/25 05/14/25 History
release 24 hr
calcium carbonate 500 mg PO DAILYPRN PRN heartburn 04/16/25 05/14/25 03/19/25 History
omeprazole 20 mg capsule,delayed 20 mg PO BID 04/16/25 05/14/25 05/14/25 History
release
sennosides 8.6 mg tablet (senna) 8.6 mg PO DAILY 04/16/25 05/14/25 05/14/25 History
Ertapenem [Invanz] 1,000 mg 120 mls/hr IV Q24H 05/18/25 Unknown Rx
Review of Systems
-
Unable to Obtain full review of systems at this time due to: Other (Patient somewhat lethargic)
Vitals / Labs / Diagnostic Testing
Vital Signs
Temp Pulse Resp BP Pulse Ox
100.1 F 113 20 98/57 97
07/04/25 07:02 07/04/25 07:01 07/04/25 07:01 07/04/25 07:01 07/04/25 07:02
Lab Data
07/04/25 03:21
07/04/25 03:21
Laboratory Results
07/04/25
04:37
pH 7.32 L
pCO2 22 L
pO2 79 L
HCO3 11.3 L*
O2 Delivery Level 94
Microbiology
07/04/25 03:33 Nasal Swab Influenza Types A & B (CIARRA) - Final
Negative for Influenza A & B, NAAT
Negative results must be combined with clinical observations
and patient history.
Nucleic Acid Amplification test (NAAT)performed on the
ip.access platform.
Diagnostic Testing:
Physical Exam
-
HEENT: Normocephalic
Cardiovascular: S1/S2
Respiratory: Clear and Non-Labored Respirations
GI: Soft and Non Distended
Neurology: Awake and Other (Lethargic)
Skin: Warm
Assessment
-
#1. UTI with septic shock
- Prior history of ESBL E. coli
- Patient received 30 mL/kg IV fluid bolus in the emergency room, continue maintenance fluid, switched to Ringer lactate in view of hyperchloremic metabolic acidosis
- Give additional 500 mL LR bolus in view of pressor need and dry oral mucosa
- Continue meropenem, follow-up on cultures and sensitivities
-Serial lactate has improved, check follow-up venous blood gas
- Urology service on case, no surgical intervention planned
#2. Malpositioned Martinez catheter with hematuria
- Balloon inflated in urethra, likely etiology of hematuria
- Hematuria since resolved
- Martinez has been replaced, urology service on case
#3. Acute kidney injury with baseline chronic kidney disease
- Creatinine up to 3.0, compared to 1.6 in 05/2025
- Suspect prerenal, obstructive as well as sepsis as underlying etiologies
- Continue aggressive IV fluid resuscitation, keep MAP above 65 to maintain adequate renal perfusion
- Avoid nephrotoxic medications, antihypertensives, NSAIDs.
- Monitor input and output closely, serial lab work
- Hydroureteronephrosis noted on imaging appears to be unchanged and chronic
Other medical diagnoses:
- Polycythemia vera
- History of subarachnoid hemorrhage
- History of bladder cancer, s/p TURBT, chemotherapy, follows up with [facility]
- History of chronic urinary retention, chronic bilateral hydroureteronephrosis with neurogenic bladder
- History of bilateral vesicoureteral reflux
Critical Care time 68 mins -- The patient is admitted for acute critical illness for the treatment of vital organ failure and/or prevention of further life-threatening conditions. Total care includes time spent in review of history, physical exam,
medications, hemodynamic/ventilator parameters, laboratory data, imaging and discussion with house staff, pharmacy, respiratory therapy, distilling department supervisor, and nursing.
Data:
CT Abd/Pelvis 07/2025: . 1. Martinez catheter with retention balloon within the penile urethra. Repositioning is recommended.
2. Small, fluid-filled bladder with mild wall thickening and pericystic stranding. There is also moderate hydronephrosis and hydroureter. Similar findings seen on the prior CT, suggesting chronicity. However, correlation with urinalysis
recommended to exclude acute infection. No obstructing lesions or stones appreciated.
3. Unchanged significant splenomegaly.
4. Small amount of free fluid within the right paracolic gutter.
5. Additional findings above.
[2025-07-04 08:09] LABS: INR 1.90; PT 22.0 Sec (11.4-14.6)
[2025-07-04 08:10] LABS: APTT 42.6 Sec (23.4-35.0)
[2025-07-04] MEDS: LR 1000 IV ×3 (08:10→23:53)
--- NOTE | 2025-07-04 08:17 | W.PN.HOSP.TC ---
Today's Communication/Plan
-
see PN
Assessment / Plan
Assessment / Plan
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
malpositioned Stanford with baloon in uretra, that was replaced in ED, hematuria resolved. Concern for UTI with leukemoid reaction and SHAR
A/P:
#sepsis on admission (lekemoid reaction, hypotension, elecated lactate) 2/2 CAUTI
#Hich-pressure neurogenic bladder with chronic urinary retention on chronic Stanford
stanford replaced
Merem pending UCx
watch for sepsis
Pending Ucx
Supposed to be on indefinite cipro ppx as per previous ID notes.
Urology consult: ureteral diversion was recommended previously, but patient declined. Recommended to follow up with established specialists
Hematuria resolved - cont antiplatelets, anticoag as per Urology
Coag panel pending
cont home meds
CT in ED with stanford balloon in uretra, thickened urinary bladder wall with b/l mild hydronephrosis (most liekly 2/2 malpositioned cath)
#SHAR on CKD stage 3b
Cr baseline 1.8-1.6
2/2 malpositioned stanford and sepsis
IVF and follow Cr
#Polycytemia VEra
#Anemia of chronic disease
#Chronic mild thrombocytopenia
#Splenomegaly
folow CBC, if leukocytosis persists - ill need Hem to exclude MDS transformation
#bilirubinemia
#Tranaminitis
most liekly 2/2 hypotension
no RUQ pain
CT showed no overt hepatobiliary pathology, but official read pending
follow LFT
#ASCVD
#Neuropathy
cont home meds
DVT ppx hep
full code
I have spent at least 51min reviewing chart, test results, communication with consultants and providing direct patient care
Anticipated Discharge: > 48 hours
Subjective/Interval History
-
Date of Service: July 04, 2025
Objective Data
-
Labs:
Laboratory Results
07/04/25 07/04/25 07/04/25
03:21 04:37 07:36
WBC 54.5 H*
Hgb 11.7 L
Hct 37.0 L
Plt Count 122 L
PT Pending
INR Pending
APTT Pending
HCO3 11.3 L*
Sodium 141
Potassium 4.4
Chloride 115 H
Carbon Dioxide 8 L*
BUN 99 H
Creatinine 3.0 H
Glucose 139 H
Calcium 9.0
Total Bilirubin 1.4 H
AST 106 H
ALT 117 H
Alkaline Phosphatase 102
Vital Signs:
Vital Signs
Temp Pulse Resp BP Pulse Ox
100.1 F 113 20 98/57 97
07/04/25 07:02 07/04/25 07:01 07/04/25 07:01 07/04/25 07:01 07/04/25 07:02
I&O
07/03/25 07/04/25 07/05/25
06:59 06:59 06:59
Output Total 550 / 550
Balance -550 / -550
Review of Systems
-
History Source: Patient
All other systems: Reviewed and negative
Physical Exam
-
General: No Apparent Distress and Comfortable
Respiratory: Clear to Auscultation
Cardiac: Regular Rhythm
Genito-urinary: Turbid Urine and Stanford; Negative Bloody Urine
Skin: Warm
Neuro: Awake, Alert, Oriented and AO x 3
Psych: Calm
[2025-07-04] MEDS: LEVOPHED 250 IV (08:41)
[2025-07-04] MEDS: LOW STRENGTH ASPIRIN 81 MG PO (08:47)
[2025-07-04 11:26] LABS: Absolute Neutrophils -Man Diff 52.8 10^3/uL (1.4-6.5)
[2025-07-04 11:27] LABS: Anisocytosis 2+; Microcytosis 1+; Normal RBC Morphology No; Ovalocytes 1+; Platelets Checked Yes; Total Cells Counted 100; Toxic Granulation 2+
--- NOTE | 2025-07-04 12:00 | PTCARENOTE ---
Reassessed the patient, increased dosage on Levophed to maintain MAP goal. No other changes from previous assessments.
[2025-07-04] MEDS: LR 500 IV (13:35)
[2025-07-04 13:45] LABS: Glucose - Point of Care 114 mg/dl (70-99)
[2025-07-04] MEDS: DESENEX/MITRAZOL/ZEASORB 1 APPLIC TOPICAL (13:47)
[2025-07-04 13:53] LABS: Venous Blood Gas B.E. -11.4 mmol/L (-4 to +4); Venous Blood Gas O2 Sat % 99.3 %
--- NOTE | 2025-07-04 14:50 | CM ---
Patient is a [facility] resident at [facility]. Primarily Japanese speaking. Does speak some Micronesian. Alert and oriented. He requires assistance with ADL's and ambulates with a RW. He has a chronic stanford. Discharge POC: Return to [facility] for resumption of meterman care.
[2025-07-04] MEDS: HEPARIN 5000 UNITS SC ×2 (15:05→23:54)
--- NOTE | 2025-07-04 16:00 | PTCARENOTE ---
Reassessed the patient, continue on Levophed drip. No other changes from previous assessments.
--- NOTE | 2025-07-04 21:24 | PTCARENOTE ---
Pt is mainly Gambian speaking, bee raiser used for communication. Pt is AOX3, denies pain, remains on Levophed to achieve MAP> 65. IVF infusing as well. NSR on monitor, no edema, palpable pulses. Room air, lungs diminished with fine crackles in
right base. Unknown last BM, abdomen in soft non tender. Chronic stanford, erosion on meatus from stanford. SCDs are on. Skin is intact, pressure points are red but blanchable, foams are intact. Pt is able to turn himself as needed.
[2025-07-04] MEDS: SENOKOT 17.2 MG PO (23:53)
[2025-07-05] VITALS (64 sets, daily range): BP systolic 83–134; BP diastolic 51–86; BMI 19.5
--- NOTE | 2025-07-05 00:13 | PTCARENOTE ---
Assessment unchanged. urine output is adequate. BP soft, remains on Levophed at 4mcg
[2025-07-05] MEDS: LEVOPHED 250 IV (02:42)
[2025-07-05 04:37] LABS: Hematocrit 29.7 % (39.0-52.0); Hemoglobin 9.3 g/dL (13.0-18.0); Mean Corp Hgb Conc. 31.3 g/dL (33.0-37.0); Mean Corpuscular Volume 80.3 fL (80.0-94.0); Nucleated Red Blood Cells % 0 % (-); Platelet Count 78 10^3/uL (130-400); Red Cell Dist. Width 21.5 % (11.5-14.5)
[2025-07-05 04:50] LABS: ALT (SGPT) 72 U/L (0-50); AST (SGOT) 39 U/L (17-59); Albumin 2.7 g/dl (3.5-5.0); Alkaline Phosphatase 69 U/L (38-126); Blood Urea Nitrogen 95 mg/dl (9-20); Calcium 8.0 mg/dl (8.4-10.2); Carbon Dioxide 15 mmol/L (22-30); Chloride 119 mmol/L (98-107); Estimated Creatinine Clearance 24 ml/min; Glucose 94 mg/dl (70-99); Potassium 4.0 mmol/L (3.5-5.1); Sodium 143 mmol/L (135-145); Total Protein 5.2 g/dl (6.3-8.2); eGFR 29.91
--- NOTE | 2025-07-05 07:30 | PTCARENOTE ---
Received patient A&Ox2-3, Tunisian speaking, Can communicate in Gambian w/ simple words, on RA, NSR, BP at goal range, on Levophed drip, Regular diet, Chronic Martinez, Small bloody drainage from Martinez catheter tip.
[2025-07-05] MEDS: LR 1000 IV ×2 (07:34→17:04)
[2025-07-05] MEDS: DESENEX/MITRAZOL/ZEASORB 1 APPLIC TOPICAL (07:35)
[2025-07-05] MEDS: HEPARIN 5000 UNITS SC ×2 (07:36→17:00)
[2025-07-05] MEDS: FLOMAX 0.4 MG PO (07:36)
[2025-07-05] MEDS: LOW STRENGTH ASPIRIN 81 MG PO (07:36)
[2025-07-05] MEDS: STERILE WATER FOR INJECTION 10 ML IV (07:36)
[2025-07-05] MEDS: MERREM 500 MG IV (07:36)
--- NOTE | 2025-07-05 07:45 | W.PN.INTV ---
Addendum entered and electronically signed by Karina Colindres MD 07/06/25 08:57:
07/06
Pateint transferred to telemetry service.
Billing Customer Service Representative service will sign off. Please call as needed.
Original Note:
Today's Communication / Plan
Recommendations
- Lower IV fluids to 75/h
- Wean Levophed as tolerated
- Follow-up platelets and renal function
Assessment
-
Patient is a 80-year-old gentleman with a history of subarachnoid hemorrhage, subsequent neurogenic bladder, chronic Martinez catheter dependent. He presented to emergency room with hematuria. Patient reportedly had recent Martinez exchange and has
hematuria since. Patient was noted to be febrile with elevated WBC count and borderline low pressure in the emergency room. Patient was fluid resuscitated, started on broad-spectrum antibiotics. Martinez catheter was noted to be malpositioned and
replaced. Urology service was also consulted. Patient also noted to have acute kidney injury, elevated lactate as well as metabolic acidosis. Patient was admitted to the ICU and marketing education teacher consultation was requested for further input.
07/05, overview: Current infusions Ringer lactate at 125 mL/h, Levophed infusing at 2. MAP of 83, saturating 97% on room air. Patient is afebrile, good urine output, no hematuria noted.
#1. UTI with septic shock
- Prior history of ESBL E. coli
- Patient received 30 mL/kg IV fluid bolus in the emergency room, continue maintenance fluid, appears well-hydrated, lowered rate to 75 mL/h
- Continue meropenem, follow-up on cultures and sensitivities
- Serial lactate has improved. WBC count improving
- Urology service on case, no surgical intervention planned
#2. Malpositioned Martinez catheter with hematuria
- Balloon inflated in urethra, likely etiology of hematuria
- Hematuria since resolved
- Martinez has been replaced, urology service on case. Clear urine in the bag
#3. Acute kidney injury with baseline chronic kidney disease
- Creatinine was up to 3.0, compared to 1.6 in 05/2025
- Suspect prerenal, obstructive as well as sepsis as underlying etiologies
- Responded well to IV fluids, good urine output, creatinine improving
#4. Thrombocytopenia
- Suspect related to underlying sepsis
- Follow-up lab work. If drops below 50,000, will hold subcu heparin
Other medical diagnoses:
- Polycythemia vera
- History of subarachnoid hemorrhage
- History of bladder cancer, s/p TURBT, chemotherapy, follows up with [facility]
- History of chronic urinary retention, chronic bilateral hydroureteronephrosis with neurogenic bladder
- History of bilateral vesicoureteral reflux
Critical Care time 48 mins -- The patient is admitted for acute critical illness for the treatment of vital organ failure and/or prevention of further life-threatening conditions. Total care includes time spent in review of history, physical exam,
medications, hemodynamic/ventilator parameters, laboratory data, imaging and discussion with house staff, pharmacy, respiratory therapy, wood sash and frame carpenter, and nursing.
Data:
CT Abd/Pelvis 07/2025: . 1. Martinez catheter with retention balloon within the penile urethra. Repositioning is recommended.
2. Small, fluid-filled bladder with mild wall thickening and pericystic stranding. There is also moderate hydronephrosis and hydroureter. Similar findings seen on the prior CT, suggesting chronicity. However, correlation with urinalysis
recommended to exclude acute infection. No obstructing lesions or stones appreciated.
3. Unchanged significant splenomegaly.
4. Small amount of free fluid within the right paracolic gutter.
5. Additional findings above.
Subjective Dataa
Subjective Data
Date of Service:
Date of Service: July 05, 2025
Subjective:
Patient comfortable lying in bed in no acute distress.
Review of Systems
Genitourinary: Other (No new symptoms reported.)
Objective Data
Data Reviewed
Vital Signs / I&O / Oxygen:
Vital Signs
Temp Pulse Resp BP Pulse Ox
98.0 F 90 12 99/60 97
07/05/25 07:15 07/05/25 07:00 07/05/25 07:00 07/05/25 07:00 07/05/25 07:00
Intake and Output
07/04/25 07/05/25 07/06/25
06:59 06:59 06:59
Intake Total 2977.7 / 3117.7 140 / 140
Output Total 550 / 550 3200 / 3200
Balance -550 / -550 -222.3 / -82.3 140 / 140
SaO2 97
Physical Exam
General: Comfortable
HEENT: Normocephalic
Cardiovascular: S1-S2
Respiratory: Clear and Non-Labored Respirations
GI: Soft and Non Distended
Neurology: Awake and Alert
Skin: Warm
Labs/Micro/Reports
Lab Data
07/05/25 03:48
07/05/25 03:48
Laboratory Results
07/04/25
07:36
PT 22.0 H
INR 1.90
APTT 42.6 H
Microbiology
07/04/25 03:33 Blood/Venous Blood Culture - Preliminary
No Growth in 24 hours- Final report to follow
07/04/25 03:21 Blood/Venous Blood Culture - Preliminary
No Growth in 24 hours- Final report to follow
07/04/25 03:33 Nasal Swab Influenza Types A & B (CIARRA) - Final
Negative for Influenza A & B, NAAT
Negative results must be combined with clinical observations
and patient history.
Nucleic Acid Amplification test (NAAT)performed on the
[employer] platform.
--- NOTE | 2025-07-05 11:43 | W.PN.HOSP.TC ---
Today's Communication/Plan
-
Increase merrem as renal function improving
COnt IVF until Cr at baseline
initial urine Cx - contamination. WIll repeat
Assessment / Plan
Assessment / Plan
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
malpositioned Stanford with baloon in uretra, that was replaced in ED, hematuria resolved. Concern for UTI with leukemoid reaction and SHAR
A/P:
#sepsis on admission with later septic shock (leukemoid reaction, hypotension, elevated lactate) 2/2 CAUTI
#Hich-pressure neurogenic bladder with chronic urinary retention on chronic Stanford
Patient with chronic hypotension, target SBP>70, wean pressors as per body make up artist
stanford replaced
Merem pending UCx
initial urine Cx - contamination. WIll repeat on 07/05/25, but already on Abx, might need to treat empirically 5-7 days
watch for sepsis
Pending Ucx
Bcx NTD
Supposed to be on indefinite cipro ppx as per previous ID notes.
Urology consult: ureteral diversion was recommended previously, but patient declined. Recommended to follow up with established specialists
Hematuria resolved - cont antiplatelets, anticoag as per Urology
cont home meds
CT in ED with stanford balloon in uretra, thickened urinary bladder wall with b/l mild hydronephrosis (most liekly 2/2 malpositioned cath)
#SHAR on CKD stage 3b
improving on IVF
Cr baseline 1.8-1.6
2/2 malpositioned stanford and sepsis
#Polycytemia Vera
#Anemia of chronic disease
#Chronic mild thrombocytopenia, worsened on hydration
#Splenomegaly
follow CBC
Ft4 score low - check HITAb, but can cont Hep
#bilirubinemia
#Tranaminitis
most liekly 2/2 hypotension
no RUQ pain
CT showed no overt hepatobiliary pathology, but official read pending
follow LFT
#ASCVD
#Neuropathy
cont home meds
DVT ppx hep
Full code - confirmed with son
I have spent at least 51min reviewing chart, test results, communication with consultants, son over the phone and providing direct patient care
Anticipated Discharge: > 48 hours
Subjective/Interval History
-
Date of Service: July 05, 2025
Objective Data
-
Labs:
Laboratory Results
07/05/25
03:48
WBC 17.3 H
Hgb 9.3 L D
Hct 29.7 L
Plt Count 78 L D
Sodium 143
Potassium 4.0
Chloride 119 H
Carbon Dioxide 15 L
BUN 95 H
Creatinine 2.2 H
Glucose 94
Calcium 8.0 L
Total Bilirubin 1.0
AST 39
ALT 72 H
Alkaline Phosphatase 69
Vital Signs:
Vital Signs
Temp Pulse Resp BP Pulse Ox
98.2 F 92 14 95/51 98
07/05/25 11:34 07/05/25 11:30 07/05/25 11:30 07/05/25 11:30 07/05/25 11:30
I&O
07/04/25 07/05/25 07/06/25
06:59 06:59 06:59
Intake Total 2977.7 / 3117.7 807.6 / 807.6
Output Total 550 / 550 3200 / 3200 650 / 650
Balance -550 / -550 -222.3 / -82.3 157.6 / 157.6
Review of Systems
-
History Source: Patient
All other systems: Reviewed and negative
Physical Exam
-
General: Well Nourished, No Apparent Distress and Comfortable
HEENT: Normocephalic, Atraumatic and Moist Mucous Membranes
Cardiac: Regular Rhythm
GI: Soft, Nontender and Nondistended
Genito-urinary: Clear Urine and Stanford
Neuro: Awake, Alert, Oriented and AO x 3
Psych: Calm
--- NOTE | 2025-07-05 12:30 | PTCARENOTE ---
Reassessed the patient, no changes from previous assessments.
--- NOTE | 2025-07-05 14:14 | PTCARENOTE ---
Made Dr. Calix and Dr. Colindres aware that patient had a soft dark brown stool and light red color on wipes when cleaning. Performed Hemoccult test, POSITIVE result.
--- NOTE | 2025-07-05 16:01 | PTCARENOTE ---
Reassessed the patient, Levophed titrated off @13:00, on PRN Midodrine per BP parameters. No other changes from previous assessments.
--- NOTE | 2025-07-05 20:00 | PTCARENOTE ---
assumed care, pt Gibraltarian speaking language line in room, Ox3, denies, pain, GARVEY, NSR on the monitor, + pulses, B/L scds, SpO2 96% on RA diminished throughout, BSx4, Chronic Martinez c yellow output, serosanguineous drainage from penis, skin per
worklist, LR 75ml/hr, 20G B/L FAs, and 20G RAC, call beach within reach, bed alarm set, otherwise refer to documentation.
[2025-07-05] MEDS: MERREM 1000 MG IV (20:14)
[2025-07-05] MEDS: STERILE WATER FOR INJECTION 20 ML IV (20:14)
[2025-07-05] MEDS: SENOKOT PO (21:17)
[2025-07-06] VITALS (21 sets, daily range): BP systolic 95–134; BP diastolic 61–81; BMI 19.3
--- NOTE | 2025-07-06 | PTCARENOTE ---
systems reviewed, CHG bath, no changed from previous assessment, otherwise refer to documentation.
[2025-07-06] MEDS: HEPARIN 5000 UNITS SC (01:15)
[2025-07-06] MEDS: LR 1000 IV ×2 (01:16→17:46)
--- NOTE | 2025-07-06 04:10 | PTCARENOTE ---
systems reviewed, labs sent, weight obtained, no changes from previous assessment, otherwise refer to documentation.
[2025-07-06 04:31] LABS: Hematocrit 28.8 % (39.0-52.0); Hemoglobin 8.9 g/dL (13.0-18.0); Mean Corp Hgb Conc. 30.9 g/dL (33.0-37.0); Mean Corpuscular Volume 81.4 fL (80.0-94.0); Platelet Count 64 10^3/uL (130-400); Red Cell Dist. Width 21.2 % (11.5-14.5)
[2025-07-06 04:33] LABS: INR 1.22; PT 15.6 Sec (11.4-14.6)
[2025-07-06 04:44] LABS: ALT (SGPT) 55 U/L (0-50); AST (SGOT) 25 U/L (17-59); Albumin 2.8 g/dl (3.5-5.0); Alkaline Phosphatase 68 U/L (38-126); Blood Urea Nitrogen 70 mg/dl (9-20); Calcium 8.6 mg/dl (8.4-10.2); Carbon Dioxide 17 mmol/L (22-30); Chloride 118 mmol/L (98-107); Estimated Creatinine Clearance 28 ml/min; Glucose 91 mg/dl (70-99); Potassium 4.0 mmol/L (3.5-5.1); Sodium 141 mmol/L (135-145); Total Protein 5.4 g/dl (6.3-8.2); eGFR 35.66
[2025-07-06 07:03] LABS: Absolute Neutrophils -Man Diff 7.4 10^3/uL (1.4-6.5)
[2025-07-06 07:04] LABS: Anisocytosis Slight; Normal RBC Morphology No; Platelets Checked Yes; Poikilocytosis Moderate
[2025-07-06 07:05] LABS: Basophilic Stippling Slight; Ovalocytes Moderate; Polychromasia Slight
[2025-07-06 07:06] LABS: Tear Drop Red Blood Cells Slight
[2025-07-06 07:07] LABS: Total Cells Counted 100
[2025-07-06] MEDS: HEPARIN SC (07:43)
[2025-07-06] MEDS: MERREM 1000 MG IV ×2 (08:14→21:41)
[2025-07-06] MEDS: STERILE WATER FOR INJECTION 20 ML IV ×2 (08:14→21:41)
[2025-07-06] MEDS: LOW STRENGTH ASPIRIN 81 MG PO (08:14)
--- NOTE | 2025-07-06 08:21 | PTCARENOTE ---
0700 Assumed care. Patient in bed. Language barrier, Faroese speaking; AAO; Translation provided. Patient AAO x 3; Denies pain.
Normal Sinus Rhythm 88; BP via Left upper arm: 121/79 MAP 91; Denies chest discomfort no edema;
On RA. POX 96%; Denies SOB,
Abdomen soft non-tender, Good PO intake ; Bowel movement: Dark brown, soft;
Martinez draining clear yellow urine
LR at 75/hour; Heparin Helpd per physician order;
Patient ambulates with walker with supervison
[2025-07-06] MEDS: PROTONIX IV 40 MG IV ×2 (09:07→21:41)
[2025-07-06] MEDS: NSS (PRESERVATIVE FREE) 10 ML IV ×2 (09:07→21:42)
[2025-07-06] MEDS: DESENEX/MITRAZOL/ZEASORB 1 APPLIC TOPICAL ×2 (09:10→21:42)
--- NOTE | 2025-07-06 10:18 | CM ---
CM reviewed chart. Pt remains on IV fluid and Meropenem. Has chronic stanford.
Discharge plan will be to return to [facility] once medically stable, CM will continue to follow.
--- NOTE | 2025-07-06 11:37 | W.PN.HOSP.TC ---
Today's Communication/Plan
-
Start Vanco
transfer to IMU as shock resolved
Hold hep
PPI
follow CBC
Assessment / Plan
Assessment / Plan
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
malpositioned Stanford with baloon in uretra, that was replaced in ED, hematuria resolved. Concern for UTI with leukemoid reaction and SHAR
A/P:
#sepsis on admission with later septic shock (leukemoid reaction, hypotension, elevated lactate) 2/2 CAUTI
#Hich-pressure neurogenic bladder with chronic urinary retention on chronic Stanford
Patient with chronic hypotension, target SBP>70, weaned off pressors on 07/05/25
stanford replaced
Merem pending UCx
initial urine Cx - contamination. WIll repeat on 07/05/25, but already on Abx, might need to treat empirically 5-7 days
watch for sepsis
Ucx Enterococcus so Vanco until sensitivity available
Bcx NTD
Supposed to be on indefinite cipro ppx as per previous ID notes.
Urology consult: ureteral diversion was recommended previously, but patient declined. Recommended to follow up with established specialists
Hematuria resolved - cont antiplatelets, anticoag as per Urology
cont home meds
CT in ED with Stanford balloon in uretra, thickened urinary bladder wall with b/l mild hydronephrosis (most liekly 2/2 malpositioned cath)
#SHAR on CKD stage 3b
improving on IVF
Cr baseline 1.8-1.6
2/2 malpositioned stanford and sepsis
#Polycytemia Vera
#Anemia of chronic disease
#Chronic mild thrombocytopenia, worsened on hydration
#Splenomegaly
FOBT pos - PPI, but since no overt bleeding -hold off GI consult. If further drop in Hgb - might need to re-consider
follow CBC
T4 score low - check HITAb, hold Hep
#bilirubinemia
#Transaminitis
resolving
most likely 2/2 hypotension
no RUQ pain
CT showed no overt hepatobiliary pathology, but official read pending
follow LFT
#ASCVD
#Neuropathy
cont home meds
DVT ppx hep
Full code - confirmed with son
I have spent at least 53min reviewing chart, test results, communication with consultants, son over the phone and providing direct patient care
Anticipated Discharge: > 48 hours
Subjective/Interval History
-
Date of Service: July 06, 2025
Objective Data
-
Labs:
Laboratory Results
07/06/25
04:06
WBC 8.3
Hgb 8.9 L
Hct 28.8 L
Plt Count 64 L
PT 15.6 H
INR 1.22
Sodium 141
Potassium 4.0
Chloride 118 H
Carbon Dioxide 17 L
BUN 70 H
Creatinine 1.9 H
Glucose 91
Calcium 8.6
Total Bilirubin 0.9
AST 25
ALT 55 H
Alkaline Phosphatase 68
Vital Signs:
Vital Signs
Temp Pulse Resp BP Pulse Ox
98.1 F 88 12 111/71 95
07/06/25 11:18 07/06/25 06:00 07/06/25 06:00 07/06/25 05:00 07/06/25 06:00
I&O
07/05/25 07/06/25 07/07/25
06:59 06:59 06:59
Intake Total 2977.7 / 3117.7 2836.4 / 2836.4 480 / 480
Output Total 3200 / 3200 3550 / 3550 400 / 400
Balance -222.3 / -82.3 -713.6 / -713.6 80 / 80
Review of Systems
-
History Source: Patient
All other systems: Reviewed and negative
Physical Exam
-
General: No Apparent Distress
HEENT: Normocephalic
GI: Soft, Nontender and Nondistended
Genito-urinary: Stanford
Musculoskeletal: No Clubbing, No Cyanosis and No Edema
Skin: Warm
Neuro: Awake, Alert, Oriented and AO x 3
Psych: Calm
--- NOTE | 2025-07-06 11:42 | PHA.VAN.IN ---
Assessment
- Assessment
Renal Function: SCR Appears Elevated from baseline
Concomitant Antimicrobials: MEROPENEM
Plan
- Plan
Initial / Loading Dose: 1500MG
Maintenance Regimen: PRN BY LEVEL
Monitoring: RANDOM 10 IN AM
Pharmacokinetics Vancomycin I
- -
Patient Age: 80
Patient Sex: Male
Vancomycin Day #: 1
Indication: Gi / Intra-Abdominal
Requesting Provider: Dr. Calix
Pertinent Antimicrobial Allergies:
NKDA
Height / Weight:
Height 5 ft 10 in
Actual Weight 60.9 kg
IBW in k
- Vital Signs / Lab Results
Temp Pulse Resp BP Pulse Ox
98.1 F 88 12 111/71 95
07/06/25 11:18 07/06/25 06:00 07/06/25 06:00 07/06/25 05:00 07/06/25 06:00
Lab Results - Hematology
07/04/25 07/05/25 07/06/25
03:21 03:48 04:06
WBC 54.5 H* 17.3 H 8.3
Band Neutrophils 12 H 8 H
Lab Results - Chemistry
07/04/25 07/05/25 07/06/25
03:21 03:48 04:06
BUN 99 H 95 H 70 H
Creatinine 3.0 H 2.2 H 1.9 H
Estimated Creat Clear
Albumin 3.8 2.7 L 2.8 L
07/04/25 07/04/25 07/04/25
03:21 07:36 07:36
Lactic Acid 3.2 H 1.8 Cancelled
07/04/25 07/04/25
12:53 18:53
Lactic Acid Cancelled Cancelled
Lab Results - Urine
07/04/25
03:33
Urine Nitrite (Reflex) Negative
Leukocyte Esterase Rfl 2+ A
Urine WBC (Reflex) >100 A
Ur Squamous Epith Cells 0-2
Microbiology Results
07/05/25 12:02 Urine Culture - Preliminary
Urine Enterococcus species
07/04/25 03:33 Blood Culture - Preliminary
Blood/Venous No Growth in 48 hours- Final report to follow
07/04/25 03:21 Blood Culture - Preliminary
Blood/Venous No Growth in 48 hours- Final report to follow
07/04/25 12:31 MRSA Screen - Final
Nose No Methicillin Resistant Staphylococcus aureus isolated.
07/04/25 03:33 Urine Culture - Final
Urine
[2025-07-06] MEDS: VANCOCIN 530 MG IV (12:05)
[2025-07-06] MEDS: LR IV (18:02)
--- NOTE | 2025-07-06 18:04 | PTCARENOTE ---
AAO x 3 Trinidadian Speaking. Ambulates with walker with steady gain independently; While in bed, bed alarm activated for fall prevention, call beach within reach. BP via left upper arm: stable (see downloads) ; Tolerating diet. Indwelling Martinez draining
clear yellow urine.
--- NOTE | 2025-07-06 22:20 | PTCARENOTE ---
Nicaraguan speaking language line in room, Ox3, denies pain, GARVEY, NSR on the monitor, + pulses, B/L scds, SpO2 95% on RA diminished throughout, BSx4, Chronic Martinez c yellow output c sediment, serosanguineous drainage from penis, skin per worklist, LR
75ml/hr, 20G B/L FAs, call beach within reach, bed alarm set, otherwise refer to documentation.
[2025-07-06] MEDS: SENOKOT PO (22:22)
[2025-07-07] VITALS (13 sets, daily range): BP systolic 99–147; BP diastolic 63–95; PULSE 92–97; BMI 19.3
[2025-07-07] MEDS: LR 1000 IV (03:55)
[2025-07-07 04:26] LABS: Hematocrit 27.2 % (39.0-52.0); Hemoglobin 8.6 g/dL (13.0-18.0); Mean Corp Hgb Conc. 31.6 g/dL (33.0-37.0); Mean Corpuscular Volume 80.7 fL (80.0-94.0); Nucleated Red Blood Cells % 0 % (-); Platelet Count 60 10^3/uL (130-400); Red Cell Dist. Width 21.2 % (11.5-14.5)
[2025-07-07 04:40] LABS: ALT (SGPT) 41 U/L (0-50); AST (SGOT) 19 U/L (17-59); Albumin 2.8 g/dl (3.5-5.0); Alkaline Phosphatase 59 U/L (38-126); Blood Urea Nitrogen 49 mg/dl (9-20); Calcium 8.5 mg/dl (8.4-10.2); Carbon Dioxide 21 mmol/L (22-30); Chloride 116 mmol/L (98-107); Estimated Creatinine Clearance 31 ml/min; Glucose 87 mg/dl (70-99); Potassium 4.2 mmol/L (3.5-5.1); Sodium 140 mmol/L (135-145); Total Protein 5.3 g/dl (6.3-8.2); eGFR 40.75
--- NOTE | 2025-07-07 08:10 | PHA.VAN.FU ---
Vancomycin Assessment / Plan
- Assessment
Renal Function: SCR Decreasing
WBC's are: WNL
In the past 24 hrs, patient has been: Afebrile
Concomitant Antimicrobials: MEROPENEM
- Assessment - Therapeutic Drug Monitoring
Random Level: 12.6 DRAWN ~16 HR AFTER PREVIOUS DOSE VANCO 1500MG
- Dosing Plan
Dosing by Level: Re-dose today (VANCO 1000MG X1)
- Monitoring Plan
Random Level: 07/08 @0600
- Follow Up
Pharmacy will continue to follow.
Vancomycin Follow UP
- -
Patient Age: 80
Patient Sex: Male
Vancomycin Day #: 2
Indication: Gi / Intra-Abdominal
Requesting Provider: Dr. Calix
Pertinent Antimicrobial Allergies:
NKDA
Height / Weight:
Height 5 ft 10 in
Actual Weight 61.1 kg
IBW in k
- Vital Signs / Lab Results
Temp Pulse Resp BP Pulse Ox
98.2 F 77 16 99/72 95
07/07/25 07:15 07/07/25 06:00 07/07/25 03:33 07/07/25 06:00 07/07/25 03:33
Lab Results - Hematology
07/04/25 07/05/25 07/06/25
03:21 03:48 04:06
WBC 17.3 H 8.3
Band Neutrophils 12 H 8 H
07/07/25
04:01
WBC 5.9
Band Neutrophils
Lab Results - Chemistry
07/05/25 07/06/25 07/07/25
03:48 04:06 04:01
BUN 95 H 70 H 49 H
Creatinine 2.2 H 1.9 H 1.7 H
Estimated Creat Clear 24
Albumin 2.7 L 2.8 L 2.8 L
07/04/25 07/04/25
12:53 18:53
Lactic Acid Cancelled Cancelled
Microbiology Results
07/04/25 03:33 Blood Culture - Preliminary
Blood/Venous No Growth in 72 hours- Final report to follow
07/04/25 03:21 Blood Culture - Preliminary
Blood/Venous No Growth in 72 hours- Final report to follow
07/05/25 12:02 Urine Culture - Preliminary
Urine Enterococcus species
07/04/25 12:31 MRSA Screen - Final
Nose No Methicillin Resistant Staphylococcus aureus isolated.
07/04/25 03:33 Urine Culture - Final
Urine
Therapeutic Drug Monitoring
Random Vancomycin 12.6 ug/ml 07/07/25 04:01
[2025-07-07] MEDS: MERREM 1000 MG IV (09:19)
[2025-07-07] MEDS: STERILE WATER FOR INJECTION 20 ML IV (09:19)
[2025-07-07] MEDS: LOW STRENGTH ASPIRIN 81 MG PO (09:19)
[2025-07-07] MEDS: NSS (PRESERVATIVE FREE) 10 ML IV (09:20)
[2025-07-07] MEDS: PROTONIX IV 40 MG IV (09:20)
[2025-07-07] MEDS: VANCOCIN 200 IV (09:20)
--- NOTE | 2025-07-07 09:30 | PTCARENOTE ---
Assumed care of patient - Cypriot speaking. AAOx3, forgetful @ times. NSR on monitor. Generalized weakness - assist x1 w/ RW - gait steady. (+) pulses. SCDs on. Lungs diminished throughout on RA. Chronic stanford draining yellow urine w/ sediment. LR
@75 via LFA 20. RFA 20 capped. Call beach within reach, bed alarm in place.
[2025-07-07] MEDS: LR IV (11:07)
--- NOTE | 2025-07-07 12:23 | W.PN.HOSP.TC ---
Today's Communication/Plan
-
Await final cultures; continue Vanco
transfer to M/S
Assessment / Plan
Assessment / Plan
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 with hematuria and hypotension, found
malpositioned Stanford with balloon in uretra, that was replaced in ED, hematuria resolved. Concern for UTI with leukemoid reaction and SHAR
Assessment:
Septic shock related to CAUTI present on arrival
- Patient history of high-pressure neurogenic bladder with chronic urinary retention on chronic Stanford
- CT in ED with stanford balloon malpositioned in Urethra; replaced
- urine culture with enterococcus species; transitioned to Vanco pending final sensitivities
- per prior ID notes; was meant to be on indefinite cipro; await med rec
- weaned off pressors >24 hours; BP stable
Hematuria from traumatic Stanford placement(s)
- resolved
SHAR on CKD stage 3b, related to sepsis and malpositioned Stanford
- Cr baseline 1.8-1.6
- improved with IVF
Hx of Polycythemia Vera
Anemia of chronic disease
Chronic mild thrombocytopenia, worsened on hydration
Splenomegaly
- occult blood positive; continue PPI. observe Hb (currently stable from 07/06 to today)
- follow CBC
Thrombocytopenia
- follow HIT Ab
- possible related to sepsis as well; monitor CBC
bilirubinemia
Transaminitis
- likely from sepsis/hypotension
- CT without overt hepatobiliary pathology
ASCVD
Neuropathy
- cont home meds
DVT ppx: SCDs
Code: Full
Anticipated Discharge: 24 - 48 hours
Subjective/Interval History
-
Date of Service: July 07, 2025
reports urinary symptoms (pain, burning)
on Vanco for Enterococcus
denies any other complaints at present
Objective Data
-
Labs:
Laboratory Results
07/07/25
04:01
WBC 5.9
Hgb 8.6 L
Hct 27.2 L
Plt Count 60 L
Sodium 140
Potassium 4.2
Chloride 116 H
Carbon Dioxide 21 L
BUN 49 H
Creatinine 1.7 H
Glucose 87
Calcium 8.5
Total Bilirubin 0.9
AST 19
ALT 41
Alkaline Phosphatase 59
Vital Signs:
Vital Signs
Temp Pulse Resp BP Pulse Ox
98.7 F 92 16 116/67 95
07/07/25 11:23 07/07/25 10:04 07/07/25 03:33 07/07/25 10:04 07/07/25 03:33
I&O
07/06/25 07/07/25 07/08/25
06:59 06:59 06:59
Intake Total 2836.4 / 2836.4 3665 / 3665 740 / 740
Output Total 3550 / 3550 3350 / 3350
Balance -713.6 / -713.6 315 / 315 740 / 740
Physical Exam
-
General: No Apparent Distress
HEENT: Normocephalic and Atraumatic
Respiratory: Negative Wheezes
Cardiac: Regular Rhythm and S1/S2
GI: Soft and Nontender
Neuro: AO x 3
Psych: Calm
Data Reviewed
-
Total Time Spent with Patient (in minutes): 42
Labs: Labs Reviewed by me
--- NOTE | 2025-07-07 15:22 | CM ---
Discharge POC: Return to [facility] for resumption of LTC.
[2025-07-07] MEDS: PROTONIX 40 MG PO (20:21)
[2025-07-07] MEDS: NEURONTIN 100 MG PO (20:21)
[2025-07-07] MEDS: SENOKOT 17.2 MG PO (22:14)
[2025-07-07] MEDS: DESYREL 50 MG PO (22:14)
[2025-07-07] MEDS: FLOMAX 0.4 MG PO (22:14)
[2025-07-08 05:35] VITALS: BMI 19.0
[2025-07-08 06:45] LABS: Hematocrit 28.4 % (39.0-52.0); Hemoglobin 8.8 g/dL (13.0-18.0); Mean Corp Hgb Conc. 31.0 g/dL (33.0-37.0); Mean Corpuscular Volume 81.4 fL (80.0-94.0); Platelet Count 61 10^3/uL (130-400); Red Cell Dist. Width 20.9 % (11.5-14.5)
[2025-07-08 06:52] LABS: Blood Urea Nitrogen 41 mg/dl (9-20); Calcium 8.7 mg/dl (8.4-10.2); Carbon Dioxide 23 mmol/L (22-30); Chloride 110 mmol/L (98-107); Estimated Creatinine Clearance 30 ml/min; Glucose 82 mg/dl (70-99); Iron 82 ug/dl (49-181); Potassium 4.3 mmol/L (3.5-5.1); Sodium 139 mmol/L (135-145); eGFR 40.75
[2025-07-08 07:01] LABS: Total Iron Binding Capacity 226 ug/dl (261-462)
[2025-07-08 07:22] VITALS: BP 100/66
[2025-07-08 07:26] LABS: Ferritin 89.0 ng/ml (17.9-464.0)
[2025-07-08 07:58] LABS: Folate 7.8 ng/ml (2.76-20); Vitamin B12 > 1000 pg/ml (239-931)
[2025-07-08] MEDS: PROTONIX 40 MG PO (09:14)
[2025-07-08] MEDS: NEURONTIN 100 MG PO (09:14)
[2025-07-08] MEDS: LOW STRENGTH ASPIRIN 81 MG PO (09:15)
[2025-07-08] MEDS: AUGMENTIN 500 MG/125 MG 1 TABLET PO (09:22)
--- NOTE | 2025-07-08 10:44 | W.PN.HOSP.TC ---
Today's Communication/Plan
-
dc back to LTC today
Assessment / Plan
Assessment / Plan
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
malpositioned Stanford with balloon in uretra, that was replaced in ED, hematuria resolved. Concern for UTI with leukemoid reaction and SHAR
Assessment:
Septic shock related to CAUTI present on arrival
- Patient history of high-pressure neurogenic bladder with chronic urinary retention on chronic Stanford
- CT in ED with stanford balloon malpositioned in Urethra; replaced
- urine culture with enterococcus species; Amoxicillin susceptible so will switch to Augmentin BID x 14 total days
- weaned off pressors >24 hours; BP stable
Hematuria from traumatic Stanford placement(s)
- resolved
SHAR on CKD stage 3b, related to sepsis and malpositioned Stanford
- Cr baseline 1.8-1.6
- improved with IVF
Hx of Polycythemia Vera
Anemia of chronic disease
Chronic mild thrombocytopenia, worsened on hydration
Splenomegaly
- occult blood positive; continue PPI. observe Hb (currently stable from 07/06 to today)
- follow CBC
Thrombocytopenia
- HIT Ab negative
- possible related to sepsis as well; repeat CBC in 1 week OP
bilirubinemia
Transaminitis
- likely from sepsis/hypotension
- CT without overt hepatobiliary pathology
ASCVD
Neuropathy
- cont home meds
DVT ppx: SCDs
Code: Full
More than 30 minutes spent in discharge including
Final examination of the patient
Summarizing hospital stay
Instructions for continuing care to all relevant caregivers
Preparation of discharge records, prescriptions, and referral forms
Total time spent (in minutes): 41
Anticipated Discharge: Today
Subjective/Interval History
-
Date of Service: July 08, 2025
resting comfortably, no new complaints
Objective Data
-
Labs:
Laboratory Results
07/08/25
05:59
WBC 6.0
Hgb 8.8 L
Hct 28.4 L
Plt Count 61 L
Sodium 139
Potassium 4.3
Chloride 110 H
Carbon Dioxide 23
BUN 41 H
Creatinine 1.7 H
Glucose 82
Calcium 8.7
Vital Signs:
Vital Signs
Temp Pulse Resp BP Pulse Ox
98.2 F 97 17 100/66 97
07/08/25 07:22 07/08/25 07:22 07/08/25 07:22 07/08/25 07:22 07/08/25 07:22
I&O
07/07/25 07/08/25 07/09/25
06:59 06:59 06:59
Intake Total 3665 / 3665 1460 / 1460
Output Total 3350 / 3350 3200 / 3200
Balance 315 / 315 -1740 / -1740
Physical Exam
-
General: No Apparent Distress
HEENT: Normocephalic and Atraumatic
Respiratory: Negative Wheezes
Cardiac: Regular Rhythm and S1/S2
GI: Soft and Nontender
Genito-urinary: No Costovertebral Tender
Neuro: AO x 3
Psych: Calm
Data Reviewed
-
Total Time Spent with Patient (in minutes): 41
Labs: Labs Reviewed by me
--- NOTE | 2025-07-08 10:54 | W.DS.TRANS ---
DC Summary - D[facility]
-
Discharge Instructions:
Discharge Diagnosis/Procedures septic shock, enterococcus UTI
Diet Regular
Activity As tolerated
Blood Work CBC in 1 week
Instructions:
Stand-Alone Forms:
Changes to Home Medications: No
Discharge Medications:
DC Medications w/original date entered in [facility]
acetaminophen 325 mg tablet (Tylenol) 650 mg PO Q6HPRN PRN mild pain/fever>100F 02/05/25
aspirin 81 mg chewable tablet 81 mg PO DAILY Blood Clot Prevention/Tx 02/05/25
bisacodyl 10 mg rectal suppository (Dulcolax (bisacodyl)) 10 mg UT DAILYPRN PRN if no BM after MOM 02/05/25
magnesium hydroxide 400 mg/5 mL oral suspension (Milk of Magnesia) 30 ml PO HSPRN PRN if no BM x 3 days 02/05/25
mirabegron 50 mg tablet,extended release 24 hr 50 mg PO DAILY Urinary Issue 02/05/25
Held on 07/08/25. Instructions: Resume on 07/21/25.
polyethylene glycol 3350 17 gram oral powder packet 17 g PO DAILY Constipation 02/05/25
tamsulosin 0.4 mg capsule 0.4 mg PO HS Urinary Issue 02/05/25
tolterodine 4 mg capsule,extended release 24 hr 4 mg PO DAILY Urinary Issue 02/05/25
Held on 07/08/25. Instructions: Resume on 07/21/25.
calcium carbonate 500 mg PO DAILYPRN PRN heartburn 04/16/25
omeprazole 20 mg capsule,delayed release 20 mg PO BID Gastrointestinal Issue 04/16/25
sennosides 8.6 mg tablet (senna) 8.6 mg PO DAILY Constipation 04/16/25
gabapentin 100 mg capsule 100 mg PO BID Pain 07/07/25
trazodone 50 mg tablet 50 mg PO HS Sleep 07/07/25
amoxicillin 500 mg-potassium clavulanate 125 mg tablet 1 tab PO Q12 #26 tabs 07/08/25
Home Medication Changes
Pending Results: No
Total time spent discharging patient (in min): 42
--- NOTE | 2025-07-08 11:41 | CM ---
Addendum entered by Regina Wallace 07/08/25 12:46:
CM spoke with pt's son who consented to IMM, declined receiving a copy of the form.
[facility] [place] [facility]1:15pm today for pt to return to [facility].
Addendum entered by Regina Wallace 07/08/25 12:40:
[facility] van will be picking up at [place] between 1pm/1:15pm today for pt to return to [facility] LTC.
Original Note:
Patient cleared for return to [facility], no auth required, awaitng update from facility to determine if they are able to provide transport back to the facility today.
[facility] Report: [phone]
[facility]
== END 2025-07-08 13:38 | DRG 698 ==
LOC: 3 WEST ACU 06:06
PROVIDERS: Internal Medicine; ADMITTING PHYSICIAN Hospitalist; ATTENDING PHYSICIAN Internal Medicine; CONSULT PHYSICIAN Internal Medicine; EMERGENCY PHYSICIAN Emergency Medicine; FAMILY PHYSICIAN Internal Medicine
DX: T83.511A Infection and inflammatory reaction due to indwelling urethral catheter, initial encounter (principal); A41.9 Sepsis, unspecified organism; N17.0 Acute kidney failure with tubular necrosis; R65.21 Severe sepsis with septic shock; N13.6 Pyonephrosis; E87.29 Other acidosis; N99.820 Postprocedural hemorrhage of a genitourinary system organ or structure following a genitourinary system procedure; T83.021A Displacement of indwelling urethral catheter, initial encounter; T83.518A Infection and inflammatory reaction due to other urinary catheter, initial encounter; Y73.8 Miscellaneous gastroenterology and urology devices associated with adverse incidents, not elsewhere classified; Y84.6 Urinary catheterization as the cause of abnormal reaction of the patient, or of later complication, without mention of misadventure at the time of the procedure; N18.30 Chronic kidney disease, stage 3 unspecified; I12.9 Hypertensive chronic kidney disease with stage 1 through stage 4 chronic kidney disease, or unspecified chronic kidney disease; D45 Polycythemia vera; Z79.82 Long term (current) use of aspirin; D63.8 Anemia in other chronic diseases classified elsewhere; D69.59 Other secondary thrombocytopenia; Z79.899 Other long term (current) drug therapy; Z85.51 Personal history of malignant neoplasm of bladder; Z87.440 Personal history of urinary (tract) infections; Z11.52 Encounter for screening for COVID-19
CPT/HCPCS: 71045; 74176; 80048; 80053; 80202; 81003; 81015; 82248; 82607; 82728; 82746; 82805; 82962; 83540; 83550; 83605; 85025; 85027; 85610; 85730; 86022; 87040; 87070; 87077; 87086; 87186; 87502; 87811; 93005; 96361; 96374; 96375; 97162; 97166; 99291; J1335; J2185